=== PATIENT | female | born 1970 | race Caucasian/White ===

== ENCOUNTER → 2018-04-28 15:33 | Outpatient (CLI) | payer OTHER, SELFPAY ==
[2018-04-28 10:03] VITALS: BMI 25.7
== END ==
PROVIDERS: Family Provider Internal Medicine; PCP Internal Medicine; Referring Provider Physician Assistant; Visit Provider Physician Assistant
DX: J02.9 Acute pharyngitis, unspecified (principal)
CPT/HCPCS: 87081

== ENCOUNTER → 2018-08-23 | Outpatient (CLI) | payer OTHER, SELFPAY ==
[2018-04-28 10:03] VITALS: BMI 25.7
--- NOTE | 2018-08-23 12:59 | RAD_ITS ---
STUDY: X-RAY - LUMBAR SPINE REASON FOR EXAM: Female, 48 years old. Bilateral leg pain, worsening, 3 weeks. Lower back pain TECHNIQUE: 5 view(s) of the lumbar spine were obtained. COMPARISON: None FINDINGS: Slight lumbar scoliosis. Normal lumbar lordosis. Normal vertebral body height and alignment. No significant disc or endplate degenerative changes. Mild facet arthropathy L3-L4, L4-L5. No acute intra-abdominal process is evident, in limited evaluation. RAD/L/S Spine Min 4 Views IMPRESSION: Minimal scoliosis, no significant lumbar degenerative disc disease, mild low lumbar facet arthropathy. If the patient has convincing features of lumbar radiculopathy in the lower extremities, and MRI lumbar spine may be appropriate. Electronically Signed: Gavin Sanchez MD at 13:39 EDT Tel , Service support ,
== END | disposition home or self-care (01) ==
LOC: LAB 12:39
PROVIDERS: Family Provider Internal Medicine; PCP Internal Medicine; Referring Provider Internal Medicine; Visit Provider Internal Medicine
DX: R63.5 Abnormal weight gain (principal); M54.5 Low back pain; M54.10 Radiculopathy, site unspecified
CPT/HCPCS: 36415; 72110; 84443

== ENCOUNTER → 2018-11-22 | Outpatient (CLI) | payer OTHER, SELFPAY ==
[2018-11-09 08:42] VITALS: BMI 25.7
--- NOTE | 2018-11-22 09:06 | US_ITS ---
STUDY: ULTRASOUND BREAST - RIGHT REASON FOR EXAM: Female, 48 years old. History of right breast pain and possible infection in the periareolar region. TECHNIQUE: Axial and longitudinal images of the RIGHT breast were performed with a high resolution ultrasound transducer. COMPARISON: Comparison is made with prior mammogram done earlier today. FINDINGS: RIGHT Breast: There is evidence of a retroareolar ductal dilatation. 2 cysts are seen in the retroareolar region. The largest measures 6 mm x 9 mm x 5 mm. US/Breast Limited Unilateral IMPRESSION: Dilated retroareolar ducts. 2. Subcentimeters cysts are seen as well. ASSESSMENT CATEGORY: BIRADS Category 2: Benign. A letter regarding these results will be sent to the patient by the facility within 30 days. Electronically Signed: Walker Mar, at 11:26 EDT , Service support ,
--- NOTE | 2018-11-22 09:06 | BI_ITS ---
MAMMOGRAPHY - BILATERAL DIAGNOSTIC REASON FOR EXAM: Female, 48 years old. Recent infection and tenderness involving the right periareolar region. The patient is presently in antibiotics. PERTINENT HISTORY: Non-contributory. TECHNIQUE: Digital bilateral breast cindy (3D mammographic acquisition) in the CC and MLO projections. 2-D mediolateral oblique (MLO) and craniocaudad (CC) views of both breasts were obtained. CAD: Full Field Digital Mammography with Computer Added Detection was performed. COMPARISON: Comparison is made with prior examination dated May 27, 2011. FINDINGS: Breast Composition: The breasts are heterogeneously dense, which may obscure small masses. There are no dominant masses or suspicious calcifications. Small bilateral axillary lymph nodes. No other significant abnormalities are identified. There has been no significant change since the prior study. BI/DIAG MAMM W/CAD, BILAT IMPRESSION: Stable bilateral diagnostic mammogram. With the patient's history of inflammatory involvement of the right alveolar region, ultrasound is recommended. ASSESSMENT CATEGORY: BIRADS Category 0: Incomplete. Need additional imaging evaluation. A letter regarding these results will be sent to the patient by the facility within 30 days. Approximately 10% of breast cancers are not detected by mammography. A normal mammogram should not delay biopsy of a clinically suspicious abnormality. Electronically Signed: Walker aMr, at 10:45 EDT , Service support ,
== END | disposition home or self-care (01) ==
LOC: OPBI 09:05
PROVIDERS: Family Provider Internal Medicine; PCP Internal Medicine; Referring Provider Nurse Practitioner Women's Health; Visit Provider Nurse Practitioner Women's Health
DX: N64.4 Mastodynia (principal)
CPT/HCPCS: 76642; 77062; 77066; G0279

== ENCOUNTER → 2019-05-04 15:05 | Outpatient (CLI) | payer OTHER, SELFPAY ==
--- NOTE | 2019-05-04 | EMB_PTH ---
PATIENT: ANNA MARIE MILLER LOC: [facility] U#:[id number] AGE/SX: 54/F ROOM: RE05/04/[address]: Dr. Anita Polanco MD : [id number] BED: DIS: SPEC #: [id number] RECD: 05/04/19 15:45 STATUS: RUFUS MARIA E #: [id number] DAVID: 05/04/19 00:[address]: Anita Polanco DEPT: SURGICAL PATHOLOGY RECD BY: Hilario Be ENTERED: 05/05/19 07:44 SP TYPE: ENDOM BX/C ABBY DR: Dr. Fabi Eric MD Tissues: Endometrium, NOS Procedures: Surgery Specimen Level IV HEADER OPERATION: Endometrial biopsy PRE-OP DIAGNOSIS: Abnormal uterine bleeding TISSUE SUBMITTED: Endometrial biopsy MICROSCOPIC DIAGNOSIS Endometrium, biopsy: Proliferative endometrium with focal glandular breakdown. Rare stromal hyalinized nodule. No evidence of hyperplasia. AM:gin 05/08/19 MICROSCOPIC DESCRIPTION Slides are reviewed. GROSS DESCRIPTION Received is one container labeled with the patient's name and not further designated. The specimen consists of multiple minute fragments of light hercules soft tissue that in aggregate measure 2 x 0.3 x <0.1 cm. The specimen is totally submitted in one cassette. / AM:gin 05/05/19 TC:5 CPT: 76526
[2019-05-04 08:29] VITALS: BMI 25.7
[2019-05-10 17:46] LABS: HPV APTIMA, High Risk Negative (Negative)
== END ==
PROVIDERS: PCP Internal Medicine; Referring Provider Obstetrics & Gynecology; Visit Provider Obstetrics & Gynecology
DX: Z12.4 Encounter for screening for malignant neoplasm of cervix (principal)
CPT/HCPCS: 87624; 88175; 88305; G0145

== ENCOUNTER → 2019-05-09 07:49 | Outpatient (CLI) | payer OTHER, SELFPAY ==
[2019-05-04 08:29] VITALS: BMI 25.7
--- NOTE | 2019-05-09 07:49 | US_ITS ---
STUDY: ULTRASOUND OF THE FEMALE PELVIS - COMPLETE REASON FOR EXAM: Female, 49 years old. AUB LMP: April 28, 2019. TECHNIQUE: Transabdominal and Transvaginal TECHNICAL QUALITY: Adequate. COMPARISON: Comparison is made with prior study dated March 08, 2015. FINDINGS: The uterus is retroverted and is in a midline position. The uterus measures 10.6 cm x 7 cm x 5.1 cm. Normal uterine cervix. The endometrium measures 9.0 mm in thickness, and is hyperechoic. There is no demonstrated endometrial mass. The myometrium is heterogeneous. 2 distinct fibroids are seen. The larger measures 3 cm x 3.5 cm x 2.3 cm. I.U.D. - The patient does not have an I.U.D. The right ovary is visualized. The right ovary measures 2.5 cm x 2.2 cm x 1.8 cm. There is no right ovarian cyst or ovarian mass. There is no visualized right adnexal mass or complex lesion. There is normal arterial and normal venous vascularity. The left ovary is visualized. The left ovary measures 2.3 cm x 1.7 cm x 1.6 cm. There is no left ovarian cyst or ovarian mass. There is no visualized left adnexal mass or complex lesion. There is normal arterial and normal venous vascularity. There is no fluid in the cul-de-sac. US/Pelvic (Non ) IMPRESSION: Fibroid uterus. Electronically Signed: Walker Mar, at 15:38 EDT , Service support ,
--- NOTE | 2019-05-09 08:28 | US_ITS ---
STUDY: ULTRASOUND OF THE FEMALE PELVIS - COMPLETE REASON FOR EXAM: Female, 49 years old. AUB LMP: April 28, 2019. TECHNIQUE: Transabdominal and Transvaginal TECHNICAL QUALITY: Adequate. COMPARISON: Comparison is made with prior study dated March 08, 2015. FINDINGS: The uterus is retroverted and is in a midline position. The uterus measures 10.6 cm x 7 cm x 5.1 cm. Normal uterine cervix. The endometrium measures 9.0 mm in thickness, and is hyperechoic. There is no demonstrated endometrial mass. The myometrium is heterogeneous. 2 distinct fibroids are seen. The larger measures 3 cm x 3.5 cm x 2.3 cm. I.U.D. - The patient does not have an I.U.D. The right ovary is visualized. The right ovary measures 2.5 cm x 2.2 cm x 1.8 cm. There is no right ovarian cyst or ovarian mass. There is no visualized right adnexal mass or complex lesion. There is normal arterial and normal venous vascularity. The left ovary is visualized. The left ovary measures 2.3 cm x 1.7 cm x 1.6 cm. There is no left ovarian cyst or ovarian mass. There is no visualized left adnexal mass or complex lesion. There is normal arterial and normal venous vascularity. There is no fluid in the cul-de-sac. US/Transvaginal Non- IMPRESSION: Fibroid uterus. Electronically Signed: Walker Mar, at 15:38 EDT , Service support ,
== END ==
PROVIDERS: PCP Internal Medicine; Referring Provider Obstetrics & Gynecology; Visit Provider Obstetrics & Gynecology
DX: N93.9 Abnormal uterine and vaginal bleeding, unspecified (principal)
CPT/HCPCS: 76830; 76856

== ENCOUNTER → 2020-07-05 09:12 | Outpatient (CLI) | payer OTHER, SELFPAY ==
--- NOTE | 2020-07-05 09:16 | RAD_ITS ---
STUDY: X-RAY - CERVICAL SPINE REASON FOR EXAM: Female, 50 years old. CERVICALGIA TECHNIQUE: 3 view(s) of the cervical spine were obtained. COMPARISON: Comparison is made with prior study of 11/10/2011. FINDINGS: Normal anterior atlantoaxial articulation. Normal odontoid process. There is straightening of the normal cervical lordosis. Normal vertebral bodies and endplates. Minimal degree of disc space narrowing at the C5-C6 level. Normal visualized intervertebral neuroforamina. The soft tissue structures are unremarkable. RAD/Cerv Spine 2 or 3 Views IMPRESSION: Minimal degree of disc space narrowing at the C5-C6 level. Electronically Signed: Walker Mar MD at 15:16 EDT , Service support ,
== END ==
PROVIDERS: PCP Internal Medicine; Referring Provider Internal Medicine; Visit Provider Internal Medicine
DX: M54.2 Cervicalgia (principal)
CPT/HCPCS: 72040

== ENCOUNTER → 2020-08-05 10:49 | Outpatient (CLI) | payer OTHER, SELFPAY ==
--- NOTE | 2020-08-05 11:07 | MRI_ITS ---
HISTORY: Pain and numbness to bilateral arms and hands, greater on the right side. Radiculopathy. TECHNIQUE: Routine MRI of the cervical spine was performed. # of images incl. paperwork: 246. IV Contrast dosage and agent: None. COMPARISON: XR 07/05/2020. FINDINGS: VERTEBRAE: Vertebral body heights maintained. No significant bone marrow signal abnormality. Mild degenerative endplate changes at C5-6. ALIGNMENT: Straightening of the cervical lordosis without anterior or posterior subluxation. CORD: Morphology and signal within normal limits. SOFT TISSUES: No prevertebral fluid collection. INTERVERTEBRAL DISCS: Mild posterior disc protrusion at C5-6 abutting the ventral cord and resulting in mild central canal stenosis. No significant posterior disc protrusion, central canal stenosis, or foraminal narrowing at the other levels. MRI/Spine Cervical (Routine) IMPRESSION: Posterior disc herniation at C5-6 resulting in mild spinal canal stenosis. at 1417 Reported and signed by: Clementina Stone MD Electronically Signed: Clementina Stone MD at 14:16 EDT Tel , Service support ,
== END ==
PROVIDERS: PCP Internal Medicine; Referring Provider Internal Medicine; Visit Provider Internal Medicine
DX: R20.0 Anesthesia of skin (principal); M54.2 Cervicalgia
CPT/HCPCS: 72141

== ENCOUNTER 2020-08-08 10:30 | Outpatient (RCR) | payer OTHER, SELFPAY ==
--- NOTE | 2020-06-05 11:10 | HP.PTEVAL_ITS ---
Patient's Visit Information ANNA MARIE MILLER is a 50 year old F referred to Physical Therapy by OLIVIA Pedraza with a diagnosis of NECK STRAIN. Date of Evaluation: 06/05/20 Physical Therapist: Mckayla Forrest PT, Cert MDT - Visit Plan Frequency: 2-3x /Week Duration: 4-6 Weeks Plan: POSTURE CORRECTION/STRENGTHENING, INSTRUCTION IN APPROPRIATE BODY MECHANICS AND ACTIVITY MODIFICATIONS. MICHELLE UE ROM, STRETCHING AND STRENGTHENING. HEP INSTRUCTION. 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 Disability: NO. Present symptoms: RIGHT NECK PAIN, RIGHT ARM, FOREARM, HAND AND DIGITS 1,3 AND 4. RIGHT UE PAIN, NUMBNESS AND TINGLING. Present since: ABOUT 3 WEEKS AGO. Pain Scale: Worst - 6/10Least - 0/10. Currently: 06/01. Commenced as a result of: JUMPED OUT OF BED. Symptoms at onset: RIGHT NECK PAIN. Worse: SLEEPING, RESTING ON IT, LIFTING PEOPLE, MOVING PEOPLE, TURNING NECK. DRIVING. Better: MOVING IT, BEING ACTIVE, YOGO, HEAT. Disturbed sleep: YES. Previous history/Previous treatment: UNREMARKABLE. This episode: PT ORDER AND STATES CONY BASSETT PT ALSO RECOMMENDED DR. YORK FOR CHIROPRACTIC. HAS NOT BEEN TO CHIROPRACTOR YET. Dizziness: NO. Tinnitis: TWO WKS AGO YES - DX'D WITH EAR INFECTION. Nausea: NO. Shortness of Breath: NO. Difficulty Swollowing: NO. Gait: NORMAL. Accidents: NO. Unexplained weight loss: NO. Imaging: NONE. PMH/Recent major surgery: R LB PAIN. LEFT THIGH N&T... MORE RECENTLY R THIGH HAS N&T TOO. UNDER CARE OF PCP FOR LUMBAR PROBLEMS. PATIENT REPORTS SHE HURT HER BACK 27 YEARS AGO. - Objective Sitting Posture/Standing Posture: FORWARD HEAD. RS'S. Active Correction of posture: BETTER. Other Observations: INDEP GAIT AND TRANSFERS. Motor deficit: R SIGNAL WORKER HELPER STRENGTH 55 LBS, L 45 LBS. MICHELLE UE'S 5/5 WITH MMT'ING EXCEPT SHLD GIRDLES 4/5. Sensory deficit: MICHELLE UE LIGHT TOUCH SENSATION INTACT AND SYMMETRICAL. ROM deficit: MICHELLE UE'S WFL. Reflexes: UNABLE TO ELICIT B UE DTR'S. Dural Signs: POSITIVE MICHELLE UE'S R > L. Cervical Mvmt Loss: Flex: MIN. Pro: NIL. Ext: MIN. Ret: MOD. RSB: MOD. LSB: MOD. R Rot: MOD. L Rot: MOD. Postural strength: POOR. Palpation: TENDERNESS WITH LIGHT PALPATION OF THE UPPER AND LOWER CERVICAL REGIONS, MICHELLE UT'S AND LIGHT PALPATION OF THE UPPER CERVICAL SPINE INCREASES PATIENTS C/O R UE NUMBNESS. CERVCIAL DISTRACTION - NT. TREATMENT: NEUROMUSCULAR REEDUCATION - RETRAINING OF MVMT AND POSTURE FOR SITTING, LYING AND STANDING ACTIVITIES. - Goals Goal 1:: DECREASE C/O RIGHT NECK AND UE SX'S. Goal Time Frame: 4-6 Weeks Goal 2:: IMPROVE LIFTING, READING, SLEEP, WORK, DRIVING AND RECREATIONAL FUNCTION. Goal Time Frame: 4-6 Weeks Goal 3:: INSTRUCT IN PROPHYLAXIS Goal Time Frame: 4-6 Weeks - Anticipated Interventions Patient/Client Instruction: Educate patient on: Condition, Plan of Care, Risk Factors For the Purpose of:: To improve self management Therapeutic Exercise to Include: Strength training, Body mechanics, Postural training, Neuromotor development, Scapular Strength/Stabilization For the Purpose of:: To decrease pain, To improve muscle performance and motor function, To increase tolerance to activity/condition/position, To improve ability of physical actions for home/community/work/leisure TENS: Yes IF ES: Yes Cryotherapy (ice pack, ice massage): Yes Thermo therapy (hot pack): Yes Ultrasound (thermal/non thermal): Yes For the Purpose of:: To decrease pain, To improve nutrient delivery to tissue Thank you for the opportunity to evaluate your patient. For Medicare and Medicare HMO plans, please review the plan of care and approve it. It will need to be FAXED BACK to us at [phone] for Medicare purposes. For Medicare only, by signing this I certify the plan of care. Please let me know if there are questions or concerns regarding this plan of care. Physician Signature: Date:
--- NOTE | 2020-08-08 11:38 | HP.PTDCSUM_ITS ---
It has been my pleasure to treat ANNA MARIE MILLER referred by OLIVIA Pedraza, with the diagnosis of NECK STRAIN for a total of 9 visit(s). Discharge Date: 08/08/20 Please see the following information for a summary of their discharge status. Subjective: ALEXUS'T WITH DR. FRAZIER TODAY AT 5 TO GO OVER MRI RESULTS. MRI 2 DAYS AGO. PATIENT REPORTS SHE STOPPED PT BECAUSE SHE FELT LIKE SHE WAS WASTING OUT TIME. STATES SHE IS STILL HAVING A LOT OF PAIN AND RIGHT NOW IT IS THROBBING AND FEELS LIKE SOMEONE IS PULLING ON HER ARM. STILL NO NECK PAIN. PATIENT R EPORTS SHE IS L HANDED BUT SHE DOES A LOT WITH HER RIGHT ARM. SHE REPORTS SHE IS STRUGGLING TO EVEN DO DISHES OR PUT HER MAKE UP ON. SHE REPORTS SHE CAN NOT SHOOT A BOW, SHOOT A GUN OR EVEN FISH. JUST SWINGING HER ARMS WALKING TRIGGERS INCREASED PAIN. JUST DRIVING TO PT IS PROBLEMATIC. NERVE CONDUCTION TEST STILL PENDING IN AUGUST. RIGHT UE Pain Intensity (Out of 10): 4 L THUMB Pain Intensity (Out of 10): 1 L UE Pain Intensity (Out of 10): 0 % Improvement: 0 Objective/Function: PATIENT WAS SEEN TODAY FOR RE-ASSESSMENT OF PROGRESS TOWARD THE SET PT GOALS AND THE NEED FOR FURTHER PHYSICAL THERAPY VS READINESS FOR DISCHARGE. PATIENT IS NOT IMPROVING. 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 UPON EXAM TODAY: Motor deficit: R STUFFING MACHINE OPERATOR STRENGTH 45 LBS, L 45 LBS. MICHELLE UE'S 5/5 WITH MMT'ING EXCEPT SHLD GIRDLES 4/5. Sensory deficit: MICHELLE UE LIGHT TOUCH SENSATION INTACT AND SYMMETRICAL. ROM deficit: MICHELLE UE'S WFL. Reflexes: UNABLE TO ELICIT B UE DTR'S. Dural Signs: POSITIVE MICHELLE UE'S R > L. Cervical Mvmt Loss: Flex: MIN. Pro: NIL. Ext: MOD. Ret: SHAQUILLE. RSB: MOD. LSB: MOD. R Rot: MOD. L Rot: MOD. RIGHT UE SX'S ARE EASILY PROVOKED WITH CERVCIAL ROM TESTING ALL PLANES EITHER DURING MVMT OR SHORTLY AFTER. Postural strength: POOR. Palpation: TENDERNESS WITH LIGHT PALPATION OF THE [id number] REGIONS TODAY. INCREASED MUSCLE TENSION MICHELLE CERVICAL MUSCULATURE. Goal 1:: DECREASE C/O RIGHT NECK AND UE SX'S. Goal Progress: Not Progressing Goal 2:: IMPROVE LIFTING, READING, SLEEP, WORK, DRIVING AND RECREATIONAL FUNCTION. Goal Progress: Not Progressing Goal 3:: INSTRUCT IN PROPHYLAXIS Goal Progress: Not Progressing Plan: D/C DUE TO LACK OF PROGRESS. RECOMMEND PHYSICIAN RE-ASSESSMENT. PATIENT AGREEABLE. If there are questions or concerns regarding this patient's physical therapy, please feel free to call me at [phone]. Thank you for the referral of this patient. Sincerely, Mckayla Forrest, PT, Cert MDT
== END 2020-08-08 19:00 | disposition home or self-care (01) ==
LOC: PT 10:30
PROVIDERS: PCP Internal Medicine; Referring Provider Physician Assistant Surgical; Visit Provider Physician Assistant Surgical
DX: S16.1XXD Strain of muscle, fascia and tendon at neck level, subsequent encounter (principal)
CPT/HCPCS: 97014; 97035; 97110; 97112; 97162; 97164; 97530; G0283

== ENCOUNTER → 2020-09-05 09:34 | Outpatient (CLI) | payer OTHER, SELFPAY | PROVIDERS: PCP Internal Medicine; Referring Provider Orthopaedic Surgery; Visit Provider Nurse Practitioner Acute Care | DX: Z11.59 Encounter for screening for other viral diseases (principal) | CPT/HCPCS: 87426; C9803 ==

== ENCOUNTER 2020-10-16 12:30 | Outpatient (RCR) | payer OTHER, SELFPAY ==
--- NOTE | 2020-10-03 13:45 | HP.PTEVAL_ITS ---
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 Date of Evaluation: 10/03/20 Physical Therapist: Mckayla Forrest, PT, Cert MDT - Visit Plan Frequency: 2-3x /Week Duration: 4-6 Weeks Plan: 15 LB LIFTING LIMIT. AVOID MICHELLE UE EXERCISE >90 DEG AT THE SAME TIME. POSTURE CORRECTION/STRENGTHENING, INSTRUCTION IN APPROPRIATE BODY MECHANICS AND ACTIVITY MODIFICATIONS. ADVANCE ROM TOLERATED BUT BEGIN SLOWLY. MICHELLE UE ROM, STRETCHING AND STRENGTHENING. HEP INSTRUCTION. 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 TENTATIVE RTW DATE OF 10/24/20. HAS BEEN OFF WORK SINCE AUGUST 11 2020. Present symptoms: NECK STIFFNESS. A LITTLE BIT OF THROAT PAIN SWOLLOWING. RIGHT ELBOW PAIN WITH WALKING - INTERMITTENT. GOES AWAY QUICKLY WITH REST. INTERMITTENT MICHELLE FINGER TIP NUMBNESS. Present since: APR 10 2020. Pain Scale: Worst - 5/10 Least - 0/10. Currently: 0/10. Commenced as a result of: NO APPARENT REASON - JUMPED OUT OF BED. Symptoms at onset: NECK PAIN. Worse: WALKING INCREASES R ELBOW PAIN. GOING WITHOUT COLLAR FOR TOO LONG. Better: NECK BRACE. Disturbed sleep: YES. Previous history/Previous treatment: PHYSICAL THERAPY. NO LENORE'S. ALSO TRIED ORAL STEROIDS PRIOR TO SURGERY. Dizziness: NO. Tinnitis: NO. Nausea: OCCASSIONALLY. Shortness of Breath: NO. Difficulty Swollowing: A LITTLE BIT BUT GETTING BETTER. Gait: NORMAL. Accidents: NO. Unexplained weight loss: NO. Imaging: X-RAY POST SURGERY LOOKS GOOD PER PATIENT REPORT. PMH/Recent major surgery: UNREMARKABLE. NECK BRACE - WEANING OUT OF IT AND WILL WEAR IT ABOUT 4 HOURS TODAY. RESTRICTIONS - 15 LB LIFTING LIMIT. - Objective Sitting Posture/Standing Posture: FH. SH'S. Other Observations: INDEP GAIT AND TRANSFERS. Motor deficit: MICHELLE UE'S GROSSLY 5/5 WITH MMT'IING EXCEPT RIGHT SHLD 4-/5, LEFT 4/5. PATIENT IS LEFT HAND DOMINANT WITH A R STOCK SUPERVISOR STRENGTH OF 45 LBS AND LEFT 52 LBS. Sensory deficit: MICHELLE UE LIGHT TOUCH SENSATION GROSSLY INTACT AND SYMMETRICAL. ROM deficit: MICHELLE UE ROM WFL. Reflexes: MICHELLE UE DTR'S 2/3. Cervical Mvmt Loss: Flex: NIL. Pro: NIL. Ext: MOD. Ret: SHAQUILLE. RSB: MOD. LSB: MOD. R Rot: MIN. L Rot: MIN. Postural strength: POOR. Palpation: INCISION LOOKS GOOD WITHOUT ANY SIGNS OF INFECTION. TREATMENT: NEUROMUSCULAR REEDUCATION - RETRAINING OF MVMT AND POSTURE FOR SITTING, LYING AND STANDING ACTIVITIES. INITIATED HEP WITH CERVICAL ISO'S ALL PLANES X 5 REPS AND 5 SEC EA. OTB MR'S. CONTINUE TO WEAN OUT OF BRACE TOLERATED. CONTINUE WALKING PROGRAM. - Balance/Special Test Scores Oswestry Neck Score: 14 - Goals Goal 1:: DECREASE C/O NECK AND RIGHT UE SX'S. Goal Time Frame: 4-6 Weeks Goal 2:: IMPROVE LIFTING, READING, WORK, DRIVING AND RECREATIONAL FUNCTION. Goal Time Frame: 4-6 Weeks Goal 3:: INSTRUCT IN PROPHYLAXIS Goal Time Frame: 4-6 Weeks - Anticipated Interventions Patient/Client Instruction: Educate patient on: Condition, Plan of Care, Risk Factors For the Purpose of:: To improve self management Therapeutic Exercise to Include: Strength training, Endurance training, Body mechanics, Postural training, Flexibilty training, Neuromotor development, Active ROM, Scapular Strength/Stabilization For the Purpose of:: To decrease pain, To increase ROM, To improve muscle performance and motor function, To increase tolerance to activity/condition/position, To improve ability of physical actions for home/community/work/leisure Thank you for the opportunity to evaluate your patient. For Medicare and Medicare HMO plans, please review the plan of care and approve it. It will need to be FAXED BACK to us at [phone] for Medicare purposes. For Medicare only, by signing this I certify the plan of care. Please let me know if there are questions or concerns regarding this plan of care. Physician Signature: Date:
--- NOTE | 2020-12-31 13:07 | HP.PT.NRP ---
ANNA MARIE MILLER was seen in my office for initial evaluation on 10/03/20. The following Plan of Care was established for this patient: Initial Frequency: 2-3x /Week Initial Duration: 4-6 Weeks Patient/Client Instruction: Educate patient on: Condition, Plan of Care, Risk Factors For the Purpose of:: To improve self management Therapeutic Exercise to Include: Strength training, Endurance training, Body mechanics, Postural training, Flexibilty training, Neuromotor development, Active ROM, Scapular Strength/Stabilization For the Purpose of:: To decrease pain, To increase ROM, To improve muscle performance and motor function, To increase tolerance to activity/condition/position, To improve ability of physical actions for home/community/work/leisure This patient was last seen in our office 10/16/20. Pertinent comments regarding their Physical therapy will appear below: This patient has not returned to Physical Therapy and is appropriate to return to MD for further follow-up as needed. At this point I will be discontinuing this patient from physical therapy. I would be happy to see this patient again in the future if found appropriate by the physician. Thank you! Mckayla Forrest, PT, Cert MDT Balance/Gait/Functional tests - Balance/Special Test Scores Oswestry Neck Score: 14
== END 2020-10-16 19:00 | disposition home or self-care (01) ==
LOC: PT 12:30
PROVIDERS: PCP Internal Medicine; Referring Provider Nurse Practitioner Acute Care; Visit Provider Nurse Practitioner Acute Care
DX: Z47.89 Encounter for other orthopedic aftercare (principal)
CPT/HCPCS: 97110; 97112; 97161; 97530

== ENCOUNTER → 2020-11-01 13:13 | Outpatient (CLI) | payer OTHER, SELFPAY ==
[2020-11-01 14:24] LABS: Thyroid Stim Hormone (TSH) 0.93 uIU/mL (0.358-3.74)
== END ==
PROVIDERS: PCP Internal Medicine; Referring Provider Nurse Practitioner Women's Health; Visit Provider Nurse Practitioner Women's Health
DX: Z13.29 Encounter for screening for other suspected endocrine disorder (principal)
CPT/HCPCS: 36415; 84443

== ENCOUNTER → 2020-12-03 10:00 | Outpatient (CLI) | payer OTHER, SELFPAY ==
--- NOTE | 2020-12-03 10:01 | US_ITS ---
STUDY: ULTRASOUND TRANSVAGINAL CLINICAL: Female, 50 years old. AUB TECHNIQUE: Transvaginal COMPARISON: None. FINDINGS: Normal uterine size measuring 9.7 x 7.9 x 5.3 cm in maximal craniocaudal dimension. There is a 3 mm uterine calcification. Several uterine fibroids are noted measuring 1.3 cm up to the largest measuring 3.9 x 4.2 x 3.2 cm.. Normal endometrial thickness measuring 5.7 mm. There are no endometrial masses, and there is no fluid in the endometrial cavity. Normal uterine cervix. Normal right ovary, measuring 2.7 x 1.9 x 1.0 cm. There is normal vascularity. Nonvisualization of the left ovary. There is no free fluid in the pelvis. US/Pelvic (Non ) IMPRESSION: Multiple uterine fibroids. Electronically Signed: Blake Angulo DO at 16:24 EDT Tel [phone], Service support ,
--- NOTE | 2020-12-03 10:01 | US_ITS ---
STUDY: ULTRASOUND TRANSVAGINAL CLINICAL: Female, 50 years old. AUB TECHNIQUE: Transvaginal COMPARISON: None. FINDINGS: Normal uterine size measuring 9.7 x 7.9 x 5.3 cm in maximal craniocaudal dimension. There is a 3 mm uterine calcification. Several uterine fibroids are noted measuring 1.3 cm up to the largest measuring 3.9 x 4.2 x 3.2 cm.. Normal endometrial thickness measuring 5.7 mm. There are no endometrial masses, and there is no fluid in the endometrial cavity. Normal uterine cervix. Normal right ovary, measuring 2.7 x 1.9 x 1.0 cm. There is normal vascularity. Nonvisualization of the left ovary. There is no free fluid in the pelvis. US/Transvaginal Non- IMPRESSION: Multiple uterine fibroids. Electronically Signed: Blake Angulo DO at 16:24 EDT Tel [phone], Service support ,
== END ==
PROVIDERS: PCP Internal Medicine; Referring Provider Obstetrics & Gynecology; Visit Provider Obstetrics & Gynecology
DX: N93.9 Abnormal uterine and vaginal bleeding, unspecified (principal)
CPT/HCPCS: 76830; 76856

== ENCOUNTER 2021-03-28 05:53 | Day surgery (SDC) | payer OTHER, SELFPAY ==
--- NOTE | 2021-03-24 10:26 | EKG12_ITS ---
Test Reason : TVH, BS Blood Pressure : / mmHG Vent. Rate : 055 BPM Atrial Rate : 055 BPM P-R Int : 158 ms QRS Dur : 074 ms QT Int : 414 ms P-R-T Axes : 052 045 054 degrees QTc Int : 396 ms Sinus bradycardia Low voltage QRS Borderline ECG Confirmed by ABE MARTINEZ, DENTON ([id number]), art editor JAYLA BRADLEY ([id number]) on 03/25/2021 8:33:03 AM Referred By: Anita Polanco Confirmed By:DENTON FISH MD
[2021-03-24 11:41] LABS: Absolute Lymphocyte Count 1.39 X10^3/uL (0.83-4.51); Absolute Neutrophil Count 4.7 X10^3/uL (2.0-7.7); Basophil# 0.05 X10^3/uL; Basophil% 0.8 % (0-1); Eosinophil# 0.06 X10^3/uL; Eosinophils% 0.9 % (0-5); Hematocrit 45.6 % (37-47); Hemoglobin 14.7 g/dL (12.0-15.0); Lymphocyte # 1.39 X10^3/ul (0.83-4.51); Lymphocyte % 21.2 % (19-41); Mean Corp Hgb Conc 32.2 g/dL (32-36); Mean Corpuscular Hgb 28.5 pg (27.0-32.0); Mean Corpuscular Volume 88.4 fL (81-99); Mean Platelet Vol. 11.7 fl (6.2-12.0); Monocyte# 0.32 X10^3/uL; Monocyte% 4.9 % (0-10); NRBC Flagged by Analyzer 0 % (0-5); Neutrophil # 4.72 X10^3/uL (2.7-7.7); Neutrophil % 71.7 % (47-70); Platelet Count 224 K/mm3 (150-450); RBC Distribution Width CV 12.2 % (11.6-14.6); RBC Distribution Width SD 39.7 fl (35.1-43.9); Red Blood Count 5.16 M/mm3 (4.2-5.4); White Blood Count 6.6 K/mm3 (4.4-11.0)
[2021-03-24 12:14] LABS: Magnesium 2.4 mg/dL (1.6-2.6)
[2021-03-28] VITALS (15 sets, daily range): BP systolic 104–144; BP diastolic 62–97; PULSE 62–95; RESP 10–18; TEMP 36.3–37.3; O2SAT 96–100; BMI 26.9
[2021-03-28 06:21] LABS: Bedside Glucose 98 mg/dL (70-110)
[2021-03-28 06:34] LABS: Internal QC Validated? YES +Cl - CLEAR BKGD; Pregnancy, Urine Negative Negative
[2021-03-28] MEDS: Lactated Ringers 1,000 ML 40 ML IV (06:44)
[2021-03-28] MEDS: Acetaminophen 500 MG Tablet 1000 MG PO (06:49)
[2021-03-28] MEDS: Celecoxib 200 MG Capsule 400 MG PO (06:50)
[2021-03-28] MEDS: dexAMETHasone 10 MG/ML Vial 8 MG IV (06:50)
[2021-03-28] MEDS: Scopolamine 1mg/72hr Patch 1 PATCH TD (06:50)
[2021-03-28] MEDS: Enoxaparin 40 MG/0.4 ML Syringe SC (06:50)
--- NOTE | 2021-03-28 07:12 | HP.PCM_ITS ---
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 Required: No Is patient in pain?: No Allergies amoxicillin [Amoxicillin] Allergy (Mild, Verified 11/20/20 11:15) Rash erythromycin base [Erythromycin Base] Allergy (Verified 11/20/20 11:15) Rash Latex, Natural Rubber Allergy (Verified 11/20/20 11:15) Rash Sulfa (Sulfonamide Antibiotics) Allergy (Verified 11/20/20 11:15) Unknown sulfamethoxazole [From Bactrim] Allergy (Verified 11/20/20 11:15) Other trimethoprim [From Bactrim] Allergy (Verified 11/20/20 11:15) Other hydromorphone [From Dilaudid] Adverse Reaction (Verified 11/20/20 11:15) Vomiting tetracycline Adverse Reaction (Verified 11/20/20 11:15) Nausea/Vom/Diarrhea gabapenton Adverse Reaction (Intermediate, Uncoded 11/20/20 11:15) rash narcotics Adverse Reaction (Uncoded 11/20/20 11:15) Nausea/Vom/Diarrhea Medications multivitamin 1 cap PO DAILY 12/08/18 [History Confirmed 02/09/20] ascorbic acid (vitamin C) 500 mg capsule mg PO 11/20/20 [History Confirmed 11/20/20] cholecalciferol (vitamin D3) 25 mcg (1,000 unit) capsule 25 mcg PO DAILY 11/20/20 [History Confirmed 11/20/20] norethindrone acetate 5 mg tablet 5 mg PO .COMPLEX #30 tab 11/20/20 [Rx Confirmed 11/20/20] ondansetron HCl 4 mg tablet 4 mg PO Q4H #60 tab 11/20/20 [Rx Confirmed 11/20/20] vitamin E mixed 400 unit capsule unit PO 11/20/20 [History Confirmed 11/20/20] zinc 50 mg tablet 50 mg PO DAILY 11/20/20 [History Confirmed 11/20/20] Post menopausal: No Patient : No : No PFSH Medical History (Updated 11/21/20 @ 03:[address] 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 Previous ultrasound showed small fibroids and adenomyosis and 10 cm uterus. She also has significant menopausal symptoms with hot flashes and night sweats. She was on a combination OCP continuously and then started having irregular breakthrough bleeding. She was able to stop the bleeding with Aygestin. She has had an 8 pound weight gain in the last few weeks since starting the medication and feels bloated but denies any hot flashes or night sweats. Female Reproductive History Menopausal Symptoms: No hot flashes, No night sweats, No difficulty concentrating and No change in libido Pregancy History 3 Elective abortions Hx Para 3 Spontaneous abortions Hx # Term Pregnancies 3 Ectopic pregnancies Hx # Pregnancies Multiple births # of living children 3 Past Pregnancies Del. Date Name GA/Weeks Outcome Route Bth Weight Infant Gen Labor Lgth Anesthesia Del Locatn Provider FOB Unknown Harjinder 1987 Unknown Griselda 1991 Unknown Vince 1992 ROS Const Constitutional: Denies fatigue, night sweats or weight loss ENT ENT: Reports system reviewed and no additional complaints, except as documented Cardio Card: Denies chest pain Resp Resp: Denies cough or dyspnea GI GI: Reports as per HPI; Denies constipation, nausea or vomiting : Reports as per HPI; Denies hot flashes, nipple discharge, vaginal discharge, vaginal dryness, vaginal odor or vaginal pruritus Musc Musc: Denies arthralgias, back pain or muscle weakness Skin Skin/Breast: Denies alopecia, change in hair, dry skin, breast mass, breast pain, breast skin changes or nipple discharge Neuro Neuro: Reports system reviewed and no additional complaints, except as documented Psych Psych: Reports system reviewed and no additional complaints, except as documented; Denies change in libido or difficulty concentrating Endo Endo: Denies cold intolerance, excessive sweating, heat intolerance or polydipsia Kian/Lymph Hematologic/Lymphatic: Denies easy bleeding, Denies easy bruising and Denies lymphadenopathy Exam Const General: cooperative, healthy appearing, comfortable, no acute distress and well developed Orientation: alert HENMT Head: normal to inspection and normocephalic Ears: hearing grossly normal bilaterally and external ears normal Nose: external nose normal and nares normal Face and sinus: normal facial exam Neck Neck: normal visual inspection and no lymphadenopathy Thyroid: thyroid normal Chest Chest palpation & inspection: normal inspection of the chest Resp Effort & Inspection: normal respiratory effort GI Inspection: normal to inspection and non-distended Musc Other: gross motor intact no deficits, full bilateral strength Skin General: no rashes or lesions noted Neuro General: patient alert, patient awake, moves all extremities and no focal motor deficits Motor: muscle tone normal throughout Extrem General: normal to inspection and no pedal edema Psych Appearance: grossly normal Mental Status: mental status grossly normal Affect: normal affect Speech and Movement: speech and movement normal Coding Level of Care Code Off vis,est,level 5 Diagnoses Abnormal uterine bleeding N93.9 Stress incontinence N39.3 Assessment and Plan Assessment and Plan (1) Abnormal uterine bleeding: Status: Acute Comment: plan TVHBS for fibroids, us ordered. aygestin until surgery in february. Ultrasound ordered to follow-up uterine size, consider LAVH if increased. Orders: Orders: Pelvic (Non ) 11/20/20 Transvaginal Non- 11/20/20 Plan - Dr. Anita Polanco MD: After discussing the patient's diagnosis and treatment plan options, patient wishes to proceed with surgical management. I have discussed with the patient the risks, benefits, and alternatives of the procedure which include but are not limited to risks of anesthesia, bleeding, infection, possible damage to bowel, bladder, or surrounding vasculature which could lead to additional surgery to evaluate any complications. Patient agrees to procedure and wishes to proceed. ACOG/uptodate references given for additional information regarding procedure. (2) Stress incontinence: Status: Acute Comment: urogyn consult for possible sling Orders: Referrals: Urogynecology Plan Details Other Medications: New: ondansetron HCl (Zofran) 4 mg PO Q4H 60 tabs 3RF Refilled: norethindrone acetate (Aygestin) 5 mg PO BID x 3 days and then once daily for remainder 30 tabs 0RF UPDATE- I have seen the patient and performed any clinically relevant updates to the history and physical exam. Anita Polanco MD
--- NOTE | 2021-03-28 07:30 | HYST_PTH ---
PATIENT: ANNA MARIE MILLER LOC: [facility] [place] U#:[id number] AGE/SX: 50/F ROOM: RE03/28/[address]: Dr. Anita Polanco MD : 1970 BED: DIS: 03/28/2021 SPEC #: [id number] RECD: 03/31/21 07:21 STATUS: RUFUS SANDERSON #: [id number] DAVID: 03/28/21 07:[address]: Anita Polanco DEPT: SURGICAL PATHOLOGY RECD BY: Marisol Gresham ENTERED: 03/31/21 08:03 SP TYPE: HYSTERECT OTHR DR: MD Dr. Fabi Stauffer MD Tissues: Uterus, NOS Procedures: Surgery Specimen Level V HEADER OPERATION: ERAS, vaginal hysterectomy. BS PRE-OP DIAGNOSIS: Abnormal uterine bleeding TISSUE SUBMITTED: Uterus, cervix, bilateral fallopian tubes MICROSCOPIC DIAGNOSIS Uterus, cervix, bilateral fallopian tubes, hysterectomy and bilateral salpingectomy: Cervix ? minimal chronic inflammation. Endometrium ? weakly proliferative endometrium. Myometrium ? diffuse adenomyosis. - Intramural leiomyomas. Bilateral fallopian tubes - no pathologic diagnosis. See comment. JACOB:gin 04/01/2021 COMMENT One of the fallopian tube consists of only fimbrial end. MICROSCOPIC DESCRIPTION Slides are reviewed. GROSS DESCRIPTION Received in fixative is one container labeled with the patient's name and designated uterus, cervix, bilateral fallopian tubes. The specimen consists of a hysterectomy specimen in multiple pieces consisting of pieces of uterus with cervix and detached nodular masses and detached pieces of tissue, possible fallopian tube segments. The uterus with cervix and detached nodular pieces weigh in aggregate 128 gm. The uterus with cervix in multiple pieces measures in aggregate 10 x 7 x 3 cm. The serosal surface appears unremarkable. The ectocervical mucosa is unremarkable. The endocervical canal measures 3 cm in length and the endocervical mucosa is hercules, glistening and unremarkable. The identifiable endometrial cavity is narrow and measures 4 cm in length and up to 0.5 cm in width. The endometrium is hercules, glistening without any mass lesion and measures <0.1 cm in thickness. Sections of the uterine wall reveal a nodular mass measuring 2 cm in greatest dimension. One of the detached pieces of the uterus is consistent with a nodular mass which measures 3.5 cm in greatest dimension. Sections of these masses reveal hercules whorled cut surfaces without areas of hemorrhage, necrosis or cystic degeneration. The uterine wall measures up to 3 cm in thickness. One of the detached pieces appear to be consists of fimbrial end of fallopian tube measuring 1.5 x 1 x 0.3 cm. The second fallopian tube measures 3.5 cm in length and 0.5 cm in diameter. The fimbrial end is identified. Sections reveal unremarkable cut surfaces. 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 The fallopian tubes are submitted in entirety. / JACOB:gin 03/31/2021 TC:5 CPT: 09774
--- NOTE | 2021-03-28 07:33 | PCM.OPRPT ---
Problems Associated Problem List Diagnoses (1) Abnormal uterine bleeding: Report of Operation Date of Procedure: 03/28/21 Pre-Operative Diagnosis: see A/P Post-Operative Diagnosis: same Surgery/Procedure Performed:: TVH BS Description of Surgical Findings:: enlarged fibroid uterus early breastfeeding care specialist: Jonah Hawley Type of Anesthesia: General Specimen's removed: uterus, tubes Drains: reid Estimated Blood Loss (mL): 100 Fluids Replaced: crystalloid Description of Procedure: Patient was taken to the operating room and was placed under general anesthesia was prepped and draped in normal sterile fashion in the dorsal lithotomy position. Preoperative antibiotics and SCDs and Reid catheter was placed inside the bladder. Weighted speculum was placed in the vagina and the anterior and posterior lip of the cervix was grasped with 2 Garima clamps and circumferentially injected with dilute vasopressin. A circumferential incision was made with a scalpel and the posterior cul-de-sac was entered into sharply and a longneck speculum was placed. The anterior cul-de-sac was also dissected down and entered into sharply and the uterosacral ligaments were clamped cut and suture ligated bilaterally followed by the cardinal ligaments which were Clamped cut and suture ligated bilaterally with 0 Monocryl. The uterus serially descended and progressive bites were taken bilaterally up to the level of the utero-ovarian ligament bilaterally which was clamped transected and double ligated with 0 Monocryl suture and 0 Vicryl free tie. some morcellation was performed due to the fibroid location. Bilateral fallopian tubes and ovaries were well visualized and noted be within normal limits and the bilateral fallopian tubes were transected across the base with a Harmony clamp and removed and sutured with 0 Vicryl suture. Excellent hemostasis was noted. The vagina was closed with [id number] 0 Vicryl pop offs including the posterior and anterior peritoneum in the reapproximation. Excellent hemostasis was noted. All instruments removed from the vagina clear urine was noted at the end of the procedure and patient was awoken and taken recovery in stable condition. Grafts/Implants Used: none Complications none Admit VTE Documentation VTE Present on Admission: No VTE Mechan Device Prophylaxis: SCD's VTE Pharm Prophylaxis ordered?: Yes Multi Select Codes Urinary/Genital Urinary/Genital CPT Codes: 03606 TVH+BS/O <250gr uterus
--- NOTE | 2021-03-28 07:35 | PCM.DC ---
Discharge Instructions Diet Discharge Diet: No restrictions Activity Discharge Activity: Return to Normal Activity, May Not Drive (while taking narcotic pain medications.) and May Shower May resume sexual activity in: 6-8 weeks Dressing / Incision Call your doctor if your incision/area has: Continuous Slow Oozing, Sudden Increased Bleeding, Increased Pain/ Swelling, Increased Redness and Foul Smelling Discharge Call your doctor if you observe: Fever of 101 or Higher, Inability to urinate, Inability to have a bowel movement and Using more than 1 pad per hour Follow Up Care Please Follow Up With: Anita Polanco MD Test Results: Test results from this visit will be discussed in further detail at your follow-up appointment, if applicable. Discharge Plan Admission Primary Reason for Your Visit: hysterectomy Attending Provider: Anita Polanco Primary Care Provider: Fabi Eric Consulting Providers: Fransico Acosta Discharge Orders/Prescriptions Prescriptions: New ketorolac 10 mg tablet 10 mg PO Q6H PRN (Reason: pain) 3 Days Qty: 12 RF: 0 Continued multivitamin capsule capsule 1 cap PO DAILY RF: 0 cholecalciferol (vitamin D3) 25 mcg (1,000 unit) capsule 25 mcg PO QHS RF: 0 vitamin E mixed 400 unit capsule 400 unit PO MOWEFR RF: 0 zinc 50 mg tablet 50 mg PO DAILY RF: 0 ascorbic acid (vitamin C) 500 mg capsule 500 mg PO QHS RF: 0 venlafaxine [Effexor XR] 37.5 mg capsule,extended release 24hr 37.5 mg PO QHS RF: 0 ondansetron HCl 4 mg tablet 4 mg PO PRN PRN (Reason: Nausea) RF: 0 Gemtesa 75 mg Tablet 75 mg PO QHS RF: 0 Discontinued medroxyprogesterone 5 mg tablet 5 mg PO .COMPLEX Qty: 45 RF: 3 norethindrone acetate [Aygestin] 5 mg tablet 5 mg PO .COMPLEX Qty: 30 RF: 0 Referrals / Follow Up: Fabi Eric MD [Primary Care Provider] - Disposition Disposition (needs filled in before D/C Order can be placed): Home, Self Care
[2021-03-28] MEDS: Lactated Ringers 1,000 ML 70 ML IV (07:40)
[2021-03-28] MEDS: Vasopressin 20 UNITS/ML Vial (07:56)
[2021-03-28] MEDS: Ondansetron 4 MG/2 ML Vial IV ×2 (09:20→12:21)
[2021-03-28] MEDS: Lactated Ringers 500 ML 999 ML IV (09:50)
[2021-03-28] MEDS: Ketorolac 30 MG/ML Syringe IV (10:45)
[2021-03-28 11:20] LABS: Bedside Glucose 103 mg/dL (70-110)
[2021-03-28] MEDS: HYDROmorphone Inj 0.2 MG/ML SYRINGE 1 MG IV (12:25)
[2021-03-28 12:52] LABS: Absolute Lymphocyte Count 0.63 X10^3/uL (0.83-4.51); Basophil# 0.03 X10^3/uL; Basophil% 0.3 % (0-1); Eosinophil# 0.01 X10^3/uL; Eosinophils% 0.1 % (0-5); Hematocrit 39.3 % (37-47); Hemoglobin 13.4 g/dL (12.0-15.0); Lymphocyte # 0.63 X10^3/ul (0.83-4.51); Lymphocyte % 5.9 % (19-41); Mean Corp Hgb Conc 34.1 g/dL (32-36); Mean Corpuscular Hgb 29.9 pg (27.0-32.0); Mean Corpuscular Volume 87.7 fL (81-99); Mean Platelet Vol. 11.3 fl (6.2-12.0); Monocyte# 0.07 X10^3/uL; Monocyte% 0.7 % (0-10); NRBC Flagged by Analyzer 0 % (0-5); Neutrophil # 9.95 X10^3/uL (2.7-7.7); Neutrophil % 92.6 % (47-70); Platelet Count 181 K/mm3 (150-450); RBC Distribution Width CV 11.9 % (11.6-14.6); RBC Distribution Width SD 38.5 fl (35.1-43.9); Red Blood Count 4.48 M/mm3 (4.2-5.4); White Blood Count 10.7 K/mm3 (4.4-11.0)
== END 2021-03-28 23:59 | disposition home or self-care (01) ==
LOC: SDC 05:53 → AC 05:55
PROVIDERS: Anesthesiology; PCP Internal Medicine; Referring Provider Obstetrics & Gynecology; Visit Provider Obstetrics & Gynecology
PROC: (CPT 58260; principal; 2021-03-28 07:10)
DX: N93.9 Abnormal uterine and vaginal bleeding, unspecified (principal); N80.0 Endometriosis of uterus; N95.1 Menopausal and female climacteric states; Z79.899 Other long term (current) drug therapy; M19.90 Unspecified osteoarthritis, unspecified site
CPT/HCPCS: 58262; 36415; 81025; 82962; 83735; 85025; 86850; 86900; 86901; 88307; 93005; J7120; J2405

== ENCOUNTER 2021-10-02 17:10 | Emergency (ER) | payer OTHER, SELFPAY ==
[2021-10-02] VITALS (8 sets, daily range): BP systolic 130–170; BP diastolic 74–110; PULSE 55–87; RESP 13–18; TEMP 36.4; O2SAT 96–100; BMI 25.8
--- NOTE | 2021-10-02 17:29 | CT_ITS ---
STUDY: CT BRAIN WITHOUT CONTRAST REASON FOR EXAM: Female, 51 years old. headache, HTN RADIATION DOSAGE (If Supplied By Facility): CTDIvol = ( 44.99 ) mGy, DLP = ( 796.11 ) mGycm TECHNIQUE: Transaxial CT imaging of the brain was performed without administration of intravenous contrast material. Individualized dose optimization techniques were used for this CT. COMPARISON: No relevant priors. FINDINGS: Normal soft tissue structures. Normal calvarium. Normal size ventricles and extra-axial spaces for the patient''s age. Minor periventricular white matter ischemic changes. Normal basal ganglia and thalami. Normal brainstem. Normal cerebellum. There is no intracranial hemorrhage. There are no findings of an acute ischemic infarction. Normal visualized paranasal sinuses. CT/Brain/Head without Contrast IMPRESSION: Minor periventricular white matter ischemic changes. No acute bleed. If concern for acute infarct MRI recommended Electronically Signed: Michael Jacobo MD at 18:45 EDT ,
--- NOTE | 2021-10-02 17:30 | EKG12_ITS ---
Test Reason : cp Blood Pressure : / mmHG Vent. Rate : 058 BPM Atrial Rate : 058 BPM P-R Int : 174 ms QRS Dur : 074 ms QT Int : 400 ms P-R-T Axes : 058 046 047 degrees QTc Int : 392 ms Sinus bradycardia Low voltage QRS Borderline ECG Confirmed by CHALO MARTINEZ, URIAH ([id number]), editor trade journal JAYLA BRADLEY ([id number]) on 10/03/2021 1:48:28 PM Referred By: Benny Confirmed By:URIAH ISABEL MD
--- NOTE | 2021-10-02 17:35 | EDS_ITS ---
HPI History of Present Illness Chief Complaint: Palpitations Detail of Chief Complaint: High blood pressure, chest pressure, headache Informant: patient Onset/Context/Timing Onset: Today Narrative Narrative: Patient presents secondary to high blood pressure, chest pressure, headache. Patient states for the last 3 weeks her blood pressures been elevated around 150s over 100. Today she felt like her blood pressure was high and developed pressure in the right side of her chest. She also has a pulsating sensation that goes up the right side of her neck and into her head. She stopped at her PCPs office and her blood pressure was noted to be 156/98. She presented to the emergency room for further evaluation. She states that she has never had problems with high blood pressure in the past. She did have her blood pressure checked earlier this month at a doctor's appointment and noted to be 130/80 at that time. She was started on Ditropan at that time. She has noticed increased thirst and muscle spasms in her legs since starting this medication. She has also been on Effexor since March. [facility] Medical History Arthritis Breast pain, right Knee pain Leg cramps Migraine headache Non-smoker Shortness of breath on exertion Stomach ulcer Wears contact lenses Home Medications cholecalciferol (vitamin D3) 25 mcg (1,000 unit) capsule 25 mcg PO QHS 11/20/20 [History Last Taken 03/27/21] vitamin E mixed 400 unit capsule 400 unit PO MOWEFR 11/20/20 [History Last Taken 03/27/21] zinc 50 mg tablet 50 mg PO DAILY 11/20/20 [History Last Taken 03/27/21] venlafaxine 37.5 mg capsule,extended release 24 hr (Effexor XR) 75 mg PO QHS 03/21/21 [History Last Taken 03/27/21] oxybutynin chloride 5 mg tablet 5 mg PO DAILY 04/17/21 [History Last Taken Unknown] hydrochlorothiazide 12.5 mg tablet 12.5 mg PO DAILY #30 tabs 10/02/21 [Rx Last Taken Unknown] Allergy/AdvReac Type Severity Reaction Status Date / Time amoxicillin [Amoxicillin] Allergy Mild Rash Verified 10/02/21 17:14 erythromycin base Allergy Rash Verified 10/02/21 17:14 [Erythromycin Base] Latex, Natural Rubber Allergy Rash Verified 10/02/21 17:14 Sulfa (Sulfonamide Allergy Unknown Verified 10/02/21 17:14 Antibiotics) sulfamethoxazole Allergy Other Verified 10/02/21 17:14 [From Bactrim] trimethoprim [From Bactrim] Allergy Other Verified 10/02/21 17:14 hydromorphone [From Dilaudid] AdvReac Vomiting Verified 10/02/21 17:14 tetracycline AdvReac Nausea/Vom/ Verified 10/02/21 17:14 Diarrhea gabapenton Allergy Intermediate rash Uncoded 10/02/21 17:14 narcotics AdvReac Nausea/Vom/ Uncoded 10/02/21 17:14 Diarrhea Family History Father Cancer Brother CVA (cerebral vascular accident) Mental and behavioral problem Mother Colon cancer Surgical History Anal fissure History of appendectomy History of cholecystectomy History of total vaginal hysterectomy (TVH) Hx of spinal surgery Status post bilateral salpingectomy Social History number of children: 3 current occupational status: employed current occupation: [employer] L[employer]D Smoking Status: Never smoker alcohol intake: never substance use type: does not use seatbelt use: always do you feel safe at home: Yes 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 history: 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 Constitutional Constitutional ED: Denies chills or fever(s) Eyes Eyes: Denies change in vision or discharge from eye(s) ENT ENT ED: Reports other Details: Right-sided neck pain ; Denies discharge from eye(s), rhinorrhea or sore throat Cardiovascular Cardiovascular: Reports chest pain; Denies palpitations Respiratory/Chest Respiratory/Chest: Denies cough or dyspnea Gastrointestinal Gastrointestinal: Denies abdominal pain, diarrhea, nausea or vomiting Genitourinary Genitourinary ED: Denies difficulty urinating or dysuria Musculoskeletal Musculoskeletal: Denies back pain or extremity pain Integumentary Denies Abrasions or rash Neurologic Neurologic: Reports headache(s); Denies weakness Psychiatric Psychiatric: Denies anxiety or depression Allergic/Immunologic Allergic/Immunologic ED: Denies lip swelling or urticaria EXAM Physical Exam Const Vital Signs: 10/02/21 17:12 10/02/21 17:24 10/02/21 17:32 Temperature 97.5 F L Temperature Source Temporal Pulse Rate 87 Respiratory Rate 16 Respiratory Effort Normal Blood Pressure 156/110 H 170/105 H Blood Pressure Mean 125 126 Pulse Ox 97 Oxygen Delivery Method Room Air 10/02/21 17:49 10/02/21 18:15 10/02/21 18:41 Temperature Temperature Source Pulse Rate 68 56 L Respiratory Rate 14 13 Respiratory Effort Blood Pressure 161/93 H 152/89 H 141/83 H Blood Pressure Mean 115 110 102 Pulse Ox 98 96 Oxygen Delivery Method Room Air Room Air 10/02/21 18:51 10/02/21 20:43 Temperature Temperature Source Pulse Rate 55 L 58 L Respiratory Rate 17 18 Respiratory Effort Blood Pressure 146/88 H 130/74 H Blood Pressure Mean 107 92 Pulse Ox 98 100 Oxygen Delivery Method Room Air Room Air Positive well nourished and well developed General Appearance ED: well developed HEENT Reports normocephalic and head/scalp atraumatic Eyes PERRL and EOMs intact bilaterally Neck supple Chest Wall inspection of chest normal and palpation of chest normal Resp normal respiratory effort and clear to auscultation bilaterally Cardio regular rate and regular rhythm GI normal to inspection, nondistended, normoactive bowel sounds Palpation: soft Extremity normal to inspection Neuro oriented x3 and no sensory deficits noted Sensorium / Orientation: alert Motor Exam: strength 5/5 throughout Psych mental status grossly normal Skin no rashes or lesions noted MDM MDM MDM Narrative Medical decision making narrative: Patient's blood pressure was in the 170s over 1 teens the time of my initial exam. She is ordered 10 mg of IV labetalol. EKG, chest x-ray, head CT obtained. Lab work ordered. Lab Data Attestation: I reviewed the patient's lab results. Labs: Laboratory Results - last 24 hr 10/02/21 10/02/21 10/02/21 17:45 17:45 20:06 WBC 7.2 RBC 4.92 Hgb 14.3 Hct 43.0 MCV 87.4 MCH 29.1 MCHC 33.3 RDW Std Deviation 39.8 RDW Coeff of Vero 12.6 Plt Count 240 MPV 10.5 Immature Gran % (Auto) 0.400 Neut % (Auto) 70.5 H Lymph % (Auto) 22.1 [place] % (Auto) 5.0 Eos % (Auto) 1.4 Baso % (Auto) 0.6 Absolute Neuts (auto) 5.1 Absolute Lymphs (auto) 1.60 Nucleated RBC % 0 Sodium 139 Potassium 4.0 Chloride 106 Carbon Dioxide 30.0 Anion Gap 3 L BUN 15 Creatinine 0.81 Estim Creat Clear Calc 81.96 Est GFR (MDRD) Af Amer 96 Est GFR (MDRD) Non-Af 79 BUN/Creatinine Ratio 18.6 Glucose 88 Calcium 9.3 Troponin I High Sens 3 5 Radiography Chest X-Ray - ED: 2 View, Read by ED Physician, Normal, Heart, Lungs and Mediastinum Diagnostic Testing: Clinical Impression(s) from Imaging Studies Brain CT 10/02/21 17:29 IMPRESSION: Minor periventricular white matter ischemic changes. No acute bleed. If concern for acute infarct MRI recommended Electronically Signed: Michael Jacobo MD at 18:45 EDT , Chest X-Ray 10/02/21 18:08 IMPRESSION: Normal x-ray examination of the chest. Electronically Signed: Michael Jacobo MD at 19:05 EDT , EKG Initial EKG: Attestation: I personally reviewed and interpreted this EKG as follows: Interpretation: Sinus Bradycardia (Sinus bradycardia 58 bpm. No acute ischemia.) Treatment and Re-Evaluation Narrative: On repeat evaluation patient's chest and back pain improved with blood pressure control. Blood pressures are running in the 130s. She still complains of migraine. Lab work is reviewed and unremarkable. Two-view chest x-ray per my interpretation is normal. Radiologist interpretation is reviewed. Head CT normal. Patient is given Toradol, Reglan, Benadryl. At this time headache is significantly improved. Blood pressure is 132/82. Because the patient has been mildly bradycardic she will be started on hydrochlorothiazide. She is to follow-up with her doctor in 1 week for a blood pressure check. Return instructions provided. Discharge Plan Triage Chief Complaint: Palpitations ED Provider: Radha Zapata Dx/Rx/DC Orders Clinical Impression: Hypertension, Chest pain, Migraine Instructions: ED Chest Pain, Noncardiac, ED Hypertension New Begin Treatment, ED, Migraine (Classical) Prescriptions: New hydrochlorothiazide 12.5 mg tablet 12.5 mg PO DAILY Qty: 30 0RF No Action cholecalciferol (vitamin D3) 25 mcg (1,000 unit) capsule 25 mcg PO QHS vitamin E mixed 400 unit capsule 400 unit PO MOWEFR zinc 50 mg tablet 50 mg PO DAILY oxybutynin chloride 5 mg tablet 5 mg PO DAILY venlafaxine [Effexor XR] 37.5 mg capsule,extended release 24hr 75 mg PO QHS Primary Care Provider: Fabi Eric Referrals: Fabi Eric MD [Primary Care Provider] - 1 Week Disposition Disposition: Home, Self Care
[2021-10-02] MEDS: Labetalol (Prefilled) 20 MG/4 ML 10 MG IV (17:49)
[2021-10-02 17:53] LABS: Absolute Neutrophil Count 5.1 X10^3/uL (2.0-7.7); Basophil# 0.04 X10^3/uL; Basophil% 0.6 % (0-1); Eosinophils% 1.4 % (0-5); Hemoglobin 14.3 g/dL (12.0-15.0); Lymphocyte % 22.1 % (19-41); Mean Corp Hgb Conc 33.3 g/dL (32-36); Mean Corpuscular Hgb 29.1 pg (27.0-32.0); Mean Corpuscular Volume 87.4 fL (81-99); Mean Platelet Vol. 10.5 fl (6.2-12.0); Monocyte# 0.36 X10^3/uL; NRBC Flagged by Analyzer 0 % (0-5); Neutrophil % 70.5 % (47-70); Platelet Count 240 K/mm3 (150-450); RBC Distribution Width CV 12.6 % (11.6-14.6); RBC Distribution Width SD 39.8 fl (35.1-43.9); Red Blood Count 4.92 M/mm3 (4.2-5.4); White Blood Count 7.2 K/mm3 (4.4-11.0)
[2021-10-02 18:07] LABS: Anion Gap 3 (5-15); BUN 15 mg/dL (7-18); BUN/Creat Ratio 18.6 RATIO (10-20); Calcium,Total 9.3 mg/dL (8.5-10.1); Chloride 106 mmol/L (98-107); Creatinine, Serum 0.81 mg/dL (0.55-1.02); EST Glomerular Filtration Rate 79 mL/min (>60); Est Glom Filt Rate - Afr Amer 96 mL/min (>60); Estimated Creatinine Clearance 81.96 ml/min; Glucose 88 mg/dL (74-106); Sodium Level 139 mmol/L (136-145); Troponin-I HS 3 pg/mL (3.0-54.0)
--- NOTE | 2021-10-02 18:08 | RAD_ITS ---
STUDY: X-RAY CHEST REASON FOR EXAM: Female, 51 years old. chest pain TECHNIQUE: PA and lateral COMPARISON: None. FINDINGS: The lungs are clear and expanded. There is no demonstrated pleural abnormality. Normal size heart. Normal mediastinum and ar. Normal visualized pulmonary arteries. Normal visualized aortic arch and descending thoracic aorta. Normal visualized thoracic spine. Normal visualized ribs, clavicles, and shoulders. There is no demonstrated abnormality of the visualized soft tissue structures of the upper abdomen. RAD/Chest PA and Lateral IMPRESSION: Normal x-ray examination of the chest. Electronically Signed: Michael Jacobo MD at 19:05 EDT ,
[2021-10-02] MEDS: DiphenhydrAMINE 50 MG/ML Syringe 12.5 MG IV (19:59)
[2021-10-02] MEDS: Metoclopramide 10 MG/2 ML Vial 5 MG IV (20:01)
[2021-10-02] MEDS: Ketorolac 30 MG/ML Syringe IV (20:03)
[2021-10-02 20:29] LABS: Troponin-I HS 5 pg/mL (3.0-54.0)
== END 2021-10-02 21:09 | disposition home or self-care (01) ==
PROVIDERS: Emergency Provider Emergency Medicine; PCP Internal Medicine; Visit Provider Emergency Medicine
DX: I10 Essential (primary) hypertension (principal); R07.9 Chest pain, unspecified; G43.909 Migraine, unspecified, not intractable, without status migrainosus; Z79.899 Other long term (current) drug therapy
CPT/HCPCS: 70450; 71046; 80048; 84484; 85025; 93005; 96374; 96375; 99284; A4216

== ENCOUNTER 2021-10-03 17:26 | Emergency (ER) | payer OTHER, SELFPAY ==
[2021-10-03 17:27] VITALS: BP 160/129; PULSE 107; RESP 23; TEMP 36.3; O2SAT 99; BMI 25.0
[2021-10-03 17:31] VITALS: BP 173/120; PULSE 83; RESP 14; O2SAT 100
--- NOTE | 2021-10-03 17:33 | EKG12_ITS ---
Test Reason : CP Blood Pressure : / mmHG Vent. Rate : 095 BPM Atrial Rate : 095 BPM P-R Int : 154 ms QRS Dur : 074 ms QT Int : 354 ms P-R-T Axes : 063 056 050 degrees QTc Int : 444 ms Normal sinus rhythm Low voltage QRS Borderline ECG Confirmed by CHALO MARTINEZ, URIAH ([id number]), visual effects editor JAYLA BRADLEY ([id number]) on 10/06/2021 10:17:34 AM Referred By: ERIC Confirmed By:URIAH ISABEL MD
--- NOTE | 2021-10-03 17:38 | EDS_ITS ---
HPI History of Present Illness Chief Complaint: Chest Pain Detail of Chief Complaint: Pain radiating into her chest, and jaw Informant: patient Onset/Context/Timing Onset: Hours (50 minutes prior to presentation) Activity at onset: sudden Timing: Continuous Quality: Positive for Stabbing (Stabbing ripping pain) Location: - (Intrascapular into the chest and jaw) Current Severity: Severe Maximum Severity: Severe Worsened By: Nothing Relieved By: Nothing Associated Symptoms: Positive for Nausea; Negative for Vomiting, Diaphoresis, Dyspnea, Cough, Fever, Lightheadedness, Acid Reflux or Palpitations Narrative Narrative: Patient was seen last night. Patient's cardiac work-up was negative last night. Patient was started on hydrochlorothiazide. The time of discharge her systolic pressure was 130. She has had recent travel. She was in [place]. There is a family history of VTE. Patient denies history of VTE. Patient states last evening she had pain in the back of her leg. She presently does not have pain in her leg. She denies shortness of breath. She denies pain with breathing. She denies pain with movement. There is family history of subarachnoid hemorrhage and aneurysm of the brain. There is no known history of aneurysm of the aorta or dissection of the aorta. Patient is status post cholecystectomy. Patient states she was wiping a window when the pain started. Prior Similar Symptoms: Yes and - (Seen last evening for hypertension) Recent Illness/Hospitalization: Yes CVD Risk Factors: Positive for Hypertension; Negative for Diabetes, Hypercholesterolemia, Family History 1' </=55 or Smoking PE Risk Factors: Positive for Recent Travel/Surgery; Negative for Recent Immobilization, Prior DVT or PE, Cancer or OCP + Smoking + >/=35 TAD Risk Factors: Positive for Hypertension; Negative for Marfan's Syndrome or Family History [facility] Medical History Arthritis Breast pain, right Knee pain Leg cramps Migraine headache Non-smoker Shortness of breath on exertion Stomach ulcer Wears contact lenses Home Medications cholecalciferol (vitamin D3) 25 mcg (1,000 unit) capsule 25 mcg PO QHS 11/20/20 [History Last Taken 03/27/21] vitamin E mixed 400 unit capsule 400 unit PO MOWEFR 11/20/20 [History Last Taken 03/27/21] zinc 50 mg tablet 50 mg PO DAILY 11/20/20 [History Last Taken 03/27/21] venlafaxine 37.5 mg capsule,extended release 24 hr (Effexor XR) 75 mg PO QHS 03/21/21 [History Last Taken 03/27/21] oxybutynin chloride 5 mg tablet 5 mg PO DAILY 04/17/21 [History Last Taken Unknown] hydrochlorothiazide 12.5 mg tablet 12.5 mg PO DAILY #30 tabs 10/02/21 [Rx Last Taken Unknown] clonidine HCl 0.1 mg tablet 0.1 mg PO .As directed #14 tabs 10/03/21 [Rx Last Taken Unknown] Allergy/AdvReac Type Severity Reaction Status Date / Time amoxicillin [Amoxicillin] Allergy Mild Rash Verified 10/02/21 17:14 erythromycin base Allergy Rash Verified 10/02/21 17:14 [Erythromycin Base] Latex, Natural Rubber Allergy Rash Verified 10/02/21 17:14 Sulfa (Sulfonamide Allergy Unknown Verified 10/02/21 17:14 Antibiotics) sulfamethoxazole Allergy Other Verified 10/02/21 17:14 [From Bactrim] trimethoprim [From Bactrim] Allergy Other Verified 10/02/21 17:14 gabapentin AdvReac Intermediate Rash Verified 10/03/21 17:38 hydromorphone [From Dilaudid] AdvReac Vomiting Verified 10/02/21 17:14 tetracycline AdvReac Nausea/Vom/ Verified 10/02/21 17:14 Diarrhea narcotics AdvReac Nausea/Vom/ Uncoded 10/02/21 17:14 Diarrhea Family History Father Cancer Brother CVA (cerebral vascular accident) Mental and behavioral problem Mother Colon cancer Surgical History Anal fissure History of appendectomy History of cholecystectomy History of total vaginal hysterectomy (TVH) Hx of spinal surgery Status post bilateral salpingectomy Social History number of children: 3 current occupational status: employed current occupation: [employer] L[employer]D Smoking Status: Never smoker alcohol intake: never substance use type: does not use seatbelt use: always do you feel safe at home: Yes 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 history: 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 Constitutional ED: Denies chills, fever(s), subjective, sweats or weight loss Eyes Eyes: Reports none; Denies blurry vision, change in vision or diplopia ENT ENT ED: Denies ear pain, rhinorrhea or sore throat Cardiovascular Cardiovascular: Reports as per HPI; Denies orthopnea or paroxysmal nocturnal dyspnea Respiratory/Chest Respiratory/Chest: Denies cough, dyspnea, dyspnea on exertion, orthopnea or paroxysmal nocturnal dyspnea Gastrointestinal Gastrointestinal: Reports nausea; Denies abdominal pain, constipation, diarrhea, melena or vomiting Genitourinary Genitourinary ED: Denies dysuria, hematuria or urinary frequency Musculoskeletal Musculoskeletal: Reports back pain and neck pain; Denies arthralgias or myalgias Integumentary Denies abscess, Abrasions or rash Neurologic Neurologic: Reports headache(s); Denies paresthesias or weakness Psychiatric Psychiatric: Reports anxiety; Denies depression EXAM Physical Exam Const Vital Signs: 10/03/21 17:27 10/03/21 17:31 10/03/21 17:50 Temperature 97.4 F L Temperature Source Temporal Pulse Rate 107 H 83 Respiratory Rate 23 H 14 Blood Pressure 160/129 H 173/120 H Blood Pressure Mean 139 137 Pulse Ox 99 100 100 Oxygen Delivery Method Room Air Room Air Room Air 10/03/21 17:50 10/03/21 18:32 10/03/21 19:10 Temperature 97.3 F L Temperature Source Temporal Pulse Rate 82 72 63 Respiratory Rate 15 12 10 L Blood Pressure 154/87 H 144/92 H 132/83 H Blood Pressure Mean 109 109 99 Pulse Ox 99 94 98 Oxygen Delivery Method Room Air Room Air Room Air Positive well nourished and well developed Constitutional Narrative: Patient is an apparent discomfort. General Appearance ED: well developed; Negative for pallor HEENT Reports moist mucous membranes HEENT Narrative: Ears normal. Nares patent. Postrepair without erythema or exudate. Eyes PERRL and EOMs intact bilaterally General Eye ED: Negative for pale conjunctiva or scleral icterus Neck no lymphadenopathy, supple and no JVD Neck Narrative: There is no carotid bruit. Trachea is midline. There is no inspiratory expi ratory stridor. Chest Wall inspection of chest normal and palpation of chest normal Resp normal respiratory effort and clear to auscultation bilaterally Cardio regular rate, regular rhythm, S1 normal heart sound, S2 normal heart sound and no murmurs GI normal to inspection, nondistended, normoactive bowel sounds, soft to palpation, non-tender, non-distended and no masses; Negative for hepatosplenomegaly GI Narrative: There is no pulsatile mass. There is no abdominal bruit. Back/Spine no CVA tenderness and no thoracic nor lumbar tenderness Extremity normal to inspection Extremity Narrative: There is no asymmetry, swelling, discoloration, leg vein distention, palpable cords or tenderness along the distribution of the deep venous system. Neuro oriented x3, CN's II-XII intact bilaterally and no sensory deficits noted Sensorium / Orientation: awake Motor Exam: strength 5/5 throughout Psych Psych Narrative: Patient appears anxious. Skin no rashes or lesions noted and no wounds General Skin Exam: Negative for jaundice or pallor MDM MDM MDM Narrative Medical decision making narrative: With 2 troponins less than 8 and a delta of 2 and a negative dicta value of 1% doubt this to be cardiac. Concern that this may represent biliary pathology however patient is status postcholecystectomy. Entertain possibility of atypical presentation of pulmonary embolus and aortic dissection. Since patient's blood pressure is 173/120 and there is a concern for aortic dissection patient was treated with 20 mg of labetalol IV push. Review of records from last evening revealed that she was given labetalol last evening and had good results. Will obtain chest x-ray to compare mediastinum and to evaluate for widening of the mediastinum which would raise concern that this represents a aortic dissection. Review of prior labs indicates patient has no evidence of renal dysfunction or endorgan injury. With an elevated D-dimer and back pain described as a stabbing ripping discomfort concerning as patient has a aortic dissection. Will obtain a CTA to rule out dissection. CT a of the chest for aortic dissection is negative. Furthermore there was no pathology noted in the chest per Dr. Townsend, the radiologist. Patient be discharged to home with prescription for clonidine to be taken if diastolic is greater than 120. Lab Data Attestation: I reviewed the patient's lab results. Labs: Laboratory Results - last 24 hr 10/03/21 10/03/21 10/03/21 17:36 17:36 17:36 WBC 6.8 RBC 5.02 Hgb 14.8 Hct 44.1 MCV 87.8 MCH 29.5 MCHC 33.6 RDW Std Deviation 40.6 RDW Coeff of Vero 12.6 Plt Count 268 MPV 10.3 Immature Gran % (Auto) 0.300 Neut % (Auto) 65.3 Lymph % (Auto) 26.4 [place] % (Auto) 5.7 Eos % (Auto) 1.6 Baso % (Auto) 0.7 Absolute Neuts (auto) 4.4 Absolute Lymphs (auto) 1.79 Nucleated RBC % 0 D-Dimer Quant (PE/DVT) 0.53 H* Sodium 139 Potassium 4.2 Chloride 104 Carbon Dioxide 28.0 Anion Gap 7 BUN 16 Creatinine 1.00 Estim Creat Clear Calc 66.39 Est GFR (MDRD) Af Amer 75 Est GFR (MDRD) Non-Af 62 BUN/Creatinine Ratio 16.0 Glucose 85 Calcium 9.8 Troponin I High Sens < 3 L 10/03/21 19:50 WBC RBC Hgb Hct MCV MCH MCHC RDW Std Deviation RDW Coeff of Vero Plt Count MPV Immature Gran % (Auto) Neut % (Auto) Lymph % (Auto) [place] % (Auto) Eos % (Auto) Baso % (Auto) Absolute Neuts (auto) Absolute Lymphs (auto) Nucleated RBC % D-Dimer Quant (PE/DVT) Sodium Potassium Chloride Carbon Dioxide Anion Gap BUN Creatinine Estim Creat Clear Calc Est GFR (MDRD) Af Amer Est GFR (MDRD) Non-Af BUN/Creatinine Ratio Glucose Calcium Troponin I High Sens 5 Radiography Chest X-Ray - ED: 1 View and Read by ED Physician (Independently reviewed and interpreted by me at 1811 as unremarkable. The mediastinum is unremarkable. Perihilar regions unremarkable. Cardiac silhouette size normal. Osseous structures are normal. This is a single view portable chest x-ray) Diagnostic Testing: Clinical Impression(s) from Imaging Studies Chest X-Ray 10/03/21 17:50 IMPRESSION: No acute radiographic abnormalities. Electronically Signed: Parrish Harding MD at 19:21 EDT , Chest CTA 10/03/21 18:14 IMPRESSION: No acute abnormalities in the chest. Specifically, no evidence of aortic dissection. Electronically Signed: Parrish Harding MD at 19:48 EDT , EKG Initial EKG: Attestation: I personally reviewed and interpreted this EKG as follows: Interpretation: Sinus Rhythm (Normal sinus rhythm rate of 95. There is low voltage. AK interval is 154 ms. QRS duration 74 ms. QT duration 354 ms. [place] is normal. 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 (Lengthy discussion with family at the time of discharge and patient) Discharge Plan Triage Chief Complaint: Chest Pain ED Provider: Peterson Be Dx/Rx/DC Orders Clinical Impression: Accelerated essential hypertension, Radiating back pain Instructions: ED High Blood Pressure Hypertension Prescriptions: New clonidine HCl 0.1 mg tablet 0.1 mg PO .As directed Qty: 14 0RF Rx Instructions: Take a clonidine tablet if your diastolic blood pressure is greater than 110 No Action cholecalciferol (vitamin D3) 25 mcg (1,000 unit) capsule 25 mcg PO QHS vitamin E mixed 400 unit capsule 400 unit PO MOWEFR zinc 50 mg tablet 50 mg PO DAILY oxybutynin chloride 5 mg tablet 5 mg PO DAILY venlafaxine [Effexor XR] 37.5 mg capsule,extended release 24hr 75 mg PO QHS hydrochlorothiazide 12.5 mg tablet 12.5 mg PO DAILY Qty: 30 0RF Primary Care Provider: Fabi Eric Referrals: Fabi Eric MD [Primary Care Provider] - 1 Week Activity Restrictions/Additional Instructions: If your diastolic blood pressure is greater than 110 take a clonidine tablet. If no improvement in 1 to 2 hours return to the emergency department Disposition Disposition: Home, Self Care
[2021-10-03] MEDS: 0.9% Normal Saline 1,000 ML 150 ML IV (17:43)
[2021-10-03] MEDS: HYDROmorphone 0.5 MG/0.5 ML SYRINGE IV (17:43)
[2021-10-03] MEDS: Ondansetron 4 MG/2 ML Vial IV (17:43)
[2021-10-03 17:45] LABS: Absolute Lymphocyte Count 1.79 X10^3/uL (0.83-4.51); Absolute Neutrophil Count 4.4 X10^3/uL (2.0-7.7); Basophil# 0.05 X10^3/uL; Basophil% 0.7 % (0-1); Eosinophil# 0.11 X10^3/uL; Eosinophils% 1.6 % (0-5); Hematocrit 44.1 % (37-47); Hemoglobin 14.8 g/dL (12.0-15.0); Lymphocyte # 1.79 X10^3/ul (0.83-4.51); Lymphocyte % 26.4 % (19-41); Mean Corp Hgb Conc 33.6 g/dL (32-36); Mean Corpuscular Hgb 29.5 pg (27.0-32.0); Mean Corpuscular Volume 87.8 fL (81-99); Mean Platelet Vol. 10.3 fl (6.2-12.0); Monocyte# 0.39 X10^3/uL; Monocyte% 5.7 % (0-10); NRBC Flagged by Analyzer 0 % (0-5); Neutrophil # 4.43 X10^3/uL (2.7-7.7); Neutrophil % 65.3 % (47-70); Platelet Count 268 K/mm3 (150-450); RBC Distribution Width CV 12.6 % (11.6-14.6); RBC Distribution Width SD 40.6 fl (35.1-43.9); Red Blood Count 5.02 M/mm3 (4.2-5.4); White Blood Count 6.8 K/mm3 (4.4-11.0)
[2021-10-03 17:50] VITALS: BP 154/87; PULSE 82; RESP 15; O2SAT 100; O2SAT 99
--- NOTE | 2021-10-03 17:50 | RAD_ITS ---
INDICATION: chest pain EXAMINATION/TECHNIQUE: X-RAY - XR Chest 1 View COMPARISON: 10/02/2021. FINDINGS: The lungs are clear. The cardiomediastinal silhouette is unremarkable. No pleural effusion or pneumothorax. Degenerative changes of the thoracic spine. RAD/Chest 1 View (Portable) IMPRESSION: No acute radiographic abnormalities. Electronically Signed: Parrish Harding MD at 19:21 EDT ,
[2021-10-03 18:04] LABS: D-Dimer Quantitative (DVT/PE) 0.53 FEU/ug/m (0.27-0.49)
[2021-10-03 18:14] LABS: Anion Gap 7 (5-15); BUN 16 mg/dL (7-18); Calcium,Total 9.8 mg/dL (8.5-10.1); Chloride 104 mmol/L (98-107); EST Glomerular Filtration Rate 62 mL/min (>60); Est Glom Filt Rate - Afr Amer 75 mL/min (>60); Estimated Creatinine Clearance 66.39 ml/min; Glucose 85 mg/dL (74-106); Potassium 4.2 mmol/L (3.5-5.1); Sodium Level 139 mmol/L (136-145); Troponin-I HS (w/2H Reflex) < 3 pg/mL (3.0-54.0)
--- NOTE | 2021-10-03 18:14 | CT_ITS ---
INDICATION: Suspect aortic dissection EXAMINATION: CTA Chest WO/W Contrast Injection TECHNIQUE: Helically acquired images were obtained of the chest following administration of IV contrast. A radiation dose optimization technique was used for this scan. 3D postprocessing images including MIPS were reviewed. IV Contrast dosage and agent: IV 75mL [id number] COMPARISON: None. FINDINGS: Lungs: Unremarkable Mediastinum: The cardiomediastinal silhouette is not enlarged. No mediastinal, hilar or axillary adenopathy. The thoracic aorta is unremarkable. No obvious filling defect seen within the visualized pulmonary arteries. Pleura: Unremarkable Bones/Soft tissues: No suspicious osseous or soft tissue lesions Upper abdomen: No visualized abnormalities in the upper abdomen. CT/CTA Chest W/WO Contrast IMPRESSION: No acute abnormalities in the chest. Specifically, no evidence of aortic dissection. Electronically Signed: Parrish Harding MD at 19:48 EDT ,
[2021-10-03 18:32] VITALS: BP 144/92; PULSE 72; RESP 12; O2SAT 94
[2021-10-03 19:10] VITALS: BP 132/83; PULSE 63; RESP 10; TEMP 36.3; O2SAT 98
[2021-10-03 19:41] LABS: Reflex Troponin-HS? (from REC) Y
[2021-10-03 20:14] LABS: Troponin-I HS 5 pg/mL (3.0-54.0)
[2021-10-03 20:31] VITALS: BP 135/64; PULSE 78; RESP 16; O2SAT 96
== END 2021-10-03 20:31 | disposition home or self-care (01) ==
PROVIDERS: Emergency Provider Emergency Medicine; PCP Internal Medicine; Visit Provider Emergency Medicine
DX: I10 Essential (primary) hypertension (principal); M54.9 Dorsalgia, unspecified; Z79.899 Other long term (current) drug therapy
CPT/HCPCS: 71045; 71275; 80048; 84484; 85025; 85379; 93005; 96374; 96375; 99284; J7030; Q9967; A4216; J2405

== ENCOUNTER → 2021-11-18 | Outpatient (CLI) | payer OTHER, SELFPAY ==
[2021-11-18 15:13] LABS: Free T3 3.2 pg/mL (2.18-3.98); T4 Total, Thyroxin 9.8 ug/dL (4.8-13.9); Thyroid Stim Hormone (TSH) 0.94 uIU/mL (0.358-3.74)
== END | disposition home or self-care (01) ==
LOC: LAB 13:50
PROVIDERS: PCP Family Medicine; Referring Provider Family Medicine; Visit Provider Family Medicine
DX: I10 Essential (primary) hypertension (principal)
CPT/HCPCS: 36415; 84436; 84443; 84481

== ENCOUNTER 2021-11-28 11:00 | Outpatient (RCR) | payer OTHER, SELFPAY ==
--- NOTE | 2022-01-22 07:28 | HP.PT.NRP ---
ANNA MARIEKODI MILLER was seen in my office for initial evaluation on 11/06/21. The following Plan of Care was established for this patient: Manual Therapy Techniques to Include: Functional dry needling This patient was last seen in our office . Pertinent comments regarding their Physical therapy will appear below: Patient has not attended physical therapy in over 30 days- appropriate to be discharged and return to the MD as needed. At this point I will be discontinuing this patient from physical therapy. I would be happy to see this patient again in the future if found appropriate by the physician. Thank you! Manuela Sauceda, KLAE Balance/Gait/Functional tests - Balance/Special Test Scores Oswestry Low Back Score: 14
== END 2021-11-28 19:00 | disposition home or self-care (01) ==
LOC: PT 11:00
PROVIDERS: PCP Family Medicine; Referring Provider Family Medicine; Visit Provider Family Medicine
DX: M54.9 Dorsalgia, unspecified (principal)
CPT/HCPCS: 97035; 97113; 97140

== ENCOUNTER → 2021-12-09 | Outpatient (CLI) | payer OTHER, SELFPAY ==
--- NOTE | 2021-12-09 18:34 | CT_ITS ---
EXAM: CT ANGIOGRAPHY ABDOMEN AND PELVIS WITHOUT AND WITH INTRAVENOUS CONTRAST CLINICAL INDICATION: hypertenisve urgency TECHNIQUE: Helically acquired angiography images were obtained of the abdomen and pelvis without and with intravenous contrast. This CT exam was performed using one or more of the following dose reduction techniques: automated exposure control, adjustment of the mA and/or kV according to patient size, and/or use of iterative reconstruction technique. This report was created using [employer] report generation technology. MIP reconstructed images were created and reviewed. CONTRAST: IV 100mL [id number] COMPARISON: None. FINDINGS: VASCULATURE: AORTA: No acute findings. Normal caliber abdominal aorta. No dissection. CELIAC TRUNK AND MESENTERIC ARTERIES: No acute findings. No occlusion or significant stenosis. No dissection. RENAL ARTERIES: No renal artery stenosis. ILIAC ARTERIES: No acute findings. No occlusion or significant stenosis. No dissection. LOWER THORAX: Bibasilar dependent atelectasis. No cardiomegaly. No significant pericardial effusion. ABDOMEN: LIVER: Unremarkable. Homogeneous. No focal mass. GALLBLADDER AND BILE DUCTS: The gallbladder is not identified and may be surgically absent. No intra- or extrahepatic biliary ductal dilation. PANCREAS: Unremarkable. No focal cystic or solid mass. SPLEEN: Unremarkable. Normal size without focal cystic or solid mass. ADRENALS: Unremarkable. No nodules. KIDNEYS AND URETERS: No urinary stone or renal obstruction. Normal renal size and position. STOMACH AND BOWEL: Unremarkable. No stomach or bowel distention. No focal inflammatory change. PELVIS: APPENDIX: No evidence of acute appendicitis. BLADDER: Unremarkable. REPRODUCTIVE: Hysterectomy. ABDOMEN and PELVIS: INTRAPERITONEAL SPACE: Unremarkable. No ascites or other fluid collection. No free air. BONES/JOINTS: Unremarkable. No suspicious lytic or blastic abnormality. SOFT TISSUES: Unremarkable. No discrete abdominal or pelvic wall hernia. LYMPH NODES: Unremarkable. No enlarged lymph nodes. CT/CT ANGIO ABD&PEL W/O&W/DYE IMPRESSION: Unremarkable CTA evaluation of the abdomen/pelvis. Electronically Signed: Willie Jang MD at 2:14 EDT ,
[2021-12-09 19:16] LABS: CREATININE FINGERSTICK < 0.9 mg/dL (0.55-1.02); EGFR FINGERSTICK > 60.0000 mL/min (>60)
== END | disposition home or self-care (01) ==
LOC: CT 18:34
PROVIDERS: PCP Family Medicine; Referring Provider Internal Medicine Cardiovascular Disease; Visit Provider Internal Medicine Cardiovascular Disease
DX: R06.09 Other forms of dyspnea (principal); R00.2 Palpitations; I10 Essential (primary) hypertension; R51.9 Headache, unspecified; R07.9 Chest pain, unspecified
CPT/HCPCS: 74174; Q9967; A4216

== ENCOUNTER → 2022-02-04 | Outpatient (CLI) | payer OTHER, SELFPAY ==
--- NOTE | 2022-02-04 14:05 | ECHOD_ITS ---
Reason For Study: HTN Procedure This was a 2D Doppler, Color Flow transthoracic echocardiogram. Exam performed in department. Left Ventricle Normal LV size. Left ventricular systolic function is normal. The estimated ejection fraction is 65 %. Normal diastology for age. No regional wall motion abnormalities noted. Right Ventricle Normal RV size. Normal systolic function. Atria Normal left atrium. Normal right atrium. Mitral Valve Normal mitral valve. Tricuspid Valve Normal tricuspid valve. Aortic Valve Normal aortic valve. Trisinus/trileaflet aortic valve. Pulmonic Valve Normal pulmonic valve. Great Vessels Normal aortic root. The pulmonary artery is normal size. Normal inferior vena cava. Pericardium/Pleural No pericardial effusion. MMode/2D Measurements & Calculations LVIDd: 4.4 cm IVSd: 0.96 cm Ao root diam: 3.2 cm LVIDs: 2.2 cm LVPWd: 0.76 cm FS: 50.6 % LAV(MOD-sp4): 25.3 ml LVAd ap4: 25.8 cm2 SV(MOD-sp4): 52.3 ml LVLd ap4: 7.7 cm EDV(MOD-sp4): 69.3 ml EDV(sp4-el): 73.9 ml LVAs ap4: 11.2 cm2 LVLs ap4: 6.1 cm ESV(MOD-sp4): 17.0 ml ESV(sp4-el): 17.6 ml EF(MOD-sp4): 75.5 % EF(sp4-el): 76.2 % SV(sp4-el): 56.3 ml LA A4 area: 11.7 cm2 LA dimension(2D): 3.3 cm RA A4 area: 10.0 cm2 Time Measurements MV dec time: 0.15 sec Doppler Measurements & Calculations MV E max zachary: 103.5 cm/sec Lat Peak E' Zachary: 11.1 cm/sec Med Peak E' Zachary: 9.8 cm/sec MV A max zachary: 95.8 cm/sec E/E' lat: 9.4 E/E' med: 10.6 MV E/A: 1.1 MV V2 max: 109.0 cm/sec Ao V2 max: 127.8 cm/sec MV max P.8 mmHg MV dec slope: 709.6 cm/sec2 Ao max P.5 mmHg MV V2 mean: 67.6 cm/sec Ao V2 mean: 91.6 cm/sec MV mean P.1 mmHg Ao mean P.8 mmHg MV V2 VTI: 31.4 cm Ao V2 VTI: 31.6 cm AV (velocity ratio): 0.83 LV V1 max: 111.6 cm/sec PA V2 max: 81.1 cm/sec LV V1 max P.0 mmHg PA V2 mean: 57.9 cm/sec LV V1 mean P.7 mmHg LV V1 mean: 78.1 cm/sec LV V1 VTI: 26.1 cm ECHO/Echo Complete Interpretation Summary Normal LV size. Left ventricular systolic function is normal. The estimated ejection fraction is 65 %. Normal diastology for age. Structurally normal valves. Ordering Physician: Chon Javier Performed By: Gladis Garza RCS
== END | disposition home or self-care (01) ==
LOC: CVS 13:59
PROVIDERS: PCP Family Medicine; Visit Provider Internal Medicine Cardiovascular Disease
DX: I10 Essential (primary) hypertension (principal)
CPT/HCPCS: 93306

== ENCOUNTER → 2022-07-01 | Outpatient (CLI) | payer OTHER, SELFPAY ==
--- NOTE | 2022-07-01 17:19 | STRESSREP_ITS ---
Stress Test Report Exercise myocardial perfusion stress test. 52-year-old lady with a history of hypertension Stress protocol: Resting EKG demonstrates normal sinus rhythm with a rate of 62 bpm resting blood pressure is 134/88 mmHg. The patient exercised according to the regular Kevin protocol for a total duration of 9 minutes and 30 seconds attaining a maximum heart rate of 153 bpm which was 91% of maximum predicted heart rate; the maximum workload was 11.7 metabolic equivalents. At rest there were no ST or T wave changes noted to suggest ischemia and at peak exercise upsloping ST changes only were noted which did not meet the criteria for ischemia. No clinical angina was noted the test was terminated due to the target heart rate being achieved/fa tigue. The peak blood pressure was 172/80 mmHg. Rate-pressure product was 25,100. Myocardial perfusion protocol. 12.0 mCi of technetium 99m sestamibi was injected at rest. The patient exercised according to regular Kevin protocol for total duration of 9 minutes and 30 seconds and at peak exercise 35.5 mCi of technetium 99m sestamibi was injected stress images were obtained stress and rest images were reconstructed in comparing the short axis vertical long and horizontal long axis. Gated images were also obtained. Perfusion SPECT analysis: Review of the stress images demonstrate normal uptake of tracer noted in all areas of the myocardium. The resting images similarly demonstrate normal uptake of tracer noted in all areas of the myocardium. No areas of reversibility are noted to suggest ischemia no previous infarct was noted. Gated SPECT analysis: The gated ejection fraction is 80%. Conclusion: Normal exercise myocardial perfusion stress test at a high workload Preserved ejection fraction.
== END | disposition home or self-care (01) ==
LOC: CVS 06:26
PROVIDERS: PCP Family Medicine; Referring Provider Nurse Practitioner Gerontology; Visit Provider Nurse Practitioner Gerontology
DX: R07.9 Chest pain, unspecified (principal)
CPT/HCPCS: 78452; 93017; A9500; A4216

== ENCOUNTER → 2022-12-17 | Outpatient (CLI) | payer OTHER, SELFPAY ==
[2022-12-17 16:01] LABS: Free T3 2.6 pg/mL (2.18-3.98); T4 Free Direct 0.87 ng/dL (0.76-1.46); Thyroid Stim Hormone (TSH) 0.84 uIU/mL (0.358-3.74)
== END | disposition home or self-care (01) ==
LOC: LAB 13:32
PROVIDERS: PCP Family Medicine; Referring Provider Nurse Practitioner Gerontology; Visit Provider Nurse Practitioner Gerontology
DX: R63.5 Abnormal weight gain (principal)
CPT/HCPCS: 36415; 84439; 84443; 84481

== ENCOUNTER → 2023-05-04 | Outpatient (CLI) | payer OTHER, SELFPAY ==
--- NOTE | 2023-05-04 08:48 | BI_ITS ---
MAMMOGRAPHY - BILATERAL SCREENING REASON FOR EXAM: Female, 53 years old. Routine annual screening examination. PERTINENT HISTORY: Non-contributory. Occasional bilateral breast tenderness. TECHNIQUE: Digital bilateral breast maldonado (3D mammographic acquisition) in the CC and MLO projections. 2-D mediolateral oblique (MLO) and craniocaudad (CC) views of both breasts were obtained. CAD: Full Field Digital Mammography with Computer Added Detection was performed. COMPARISON: Comparison is made with prior study dated November 22, 2018 and May 27, 2011. FINDINGS: Breast Composition: The breasts are heterogeneously dense, which may obscure small masses. There are no dominant masses or suspicious calcifications. Stable small bilateral axillary lymph nodes. No other significant abnormalities are identified. There has been no significant change since the prior study. BI/SCRN MAMM (CAD)W/MALDONADO BILAT IMPRESSION: Stable bilateral screening mammogram. Yearly follow-up mammogram recommended. (A) ASSESSMENT CATEGORY: BIRADS Category 2: Benign. A letter regarding these results will be sent to the patient by the facility within 30 days. Approximately 10% of breast cancers are not detected by mammography. A normal mammogram should not delay biopsy of a clinically suspicious abnormality. [id number] Electronically Signed: Walker Mar MD at 9:59 EDT ,
--- OUTSIDE RECORDS SUMMARY | 2023-05-04 19:07 | XMS RPT_ITS | CCD ---
Author Name Unknown Address [address] [facility] [address] [place] [id number] Organization [facility] Care Team Providers Care Atmospheric Physics Professor Name Role Phone Darien Sidhu Unavailable Ricardo Frazier Unavailable Unavailable Unavailable Dr. RICARDO FRAZIER Primary Care Unavailable Melyssa Agarwal [facility] Allergies Allergy Classification Reported Allergen(s) Allergy Type Date of Onset Reaction(s) Facility Macrolides (antibiotic) (2 sources) Erythromycin; Translations: [erythromycin] Drug Allergy Diarrhea [facility] and Work Phone: Sulfonamides (antibiotic) (2 sources) Sulfonamides (Antibiotic); Translations: [Sulfa Drugs] Drug Allergy [facility] and Work Phone: Tetracyclines (antibiotic) (2 sources) Tetracycline; Translations: [tetracycline] Drug Allergy [facility] and Work Phone: (2 sources) Sulfonamides (Antibiotic); Translations: [Sulfa Drugs] drug allergy 11-17-2016 [facility] Work Phone: (1 source) Tetracycline Drug Allergy 11-17-2016 [facility] Work Phone: (1 source) Erythromycin; Translations: [erythromycin] Drug Allergy Diarrhea [facility] and Work Phone: (1 source) Tetracycline; Translations: [tetracycline] Drug Allergy -[facility] and Work Phone: Medications Completed/Discontinued Medications Medication Drug Class(es) Dates Sig (Normalized) Sig (Original) Aspirin (1 source) Platelet Aggregation Inhibitor, Nonsteroidal Anti-inflammatory Drug Start: 11-17-2016 ACETYL SALICYLIC ACID POWD as directed ASPIRIN [id number] Darien BAKER MULTIPLE VITAMIN (1 source) Start: 11-17-2016 DAILY MULTIPLE VITAMINS TABS MULTIPLE VITAMIN [id number] Darien BAKER ondansetron 4 mg disintegrating oral tablet (1 source) Serotonin-3 Receptor Antagonist Start: 08-08-2020 take 1 tablet by mouth four times daily as needed for nausea Ondansetron 4 MG Oral Tablet Disintegrating TAKE 1 TABLET 4 times daily PRN nausea Quantity: 10 Refills: 1 Ordered: 08-Aug-2020 Ricardo Frazier DO Start : 08-Aug-2020 Active oxybutynin chloride 5 mg oral tablet (1 source) Cholinergic Muscarinic Antagonist Ditropan 5 MG TABS TAKE 1 TABLET DAILY. Quantity: 0 Refills: 0 Ordered: 02-Oct-2021 DO Active predniSONE 10 mg oral tablet (1 source) Start: 08-08-2020 predniSONE 10 MG Oral Tablet TAKE 4 TABLETS DAILY FOR 3 DAYS,3 TABLETS DAILY FOR 3 DAYS, 2 TABLETS DAILY FOR 3 DAYS AND 1 TABLET DAILY FOR 3 DAYS, THEN STOP. Quantity: 30 Refills: 0 Ordered: 08-Aug-2020 Ricardo Frazier DO Start : 08-Aug-2020 Active venlafaxine 75 mg oral tablet (1 source) Serotonin and Norepinephrine Reuptake Inhibitor Effexor 75 MG TABS Quantity: 0 Refills: 0 Ordered: 02-Oct-2021 DO Active Problems Problem Classification Problem Date Documented Date Episodic/Chronic Abdominal pain (3 sources) Flank pain; Translations: [Abdominal pain, other specified site] Episodic Anxiety disorders (1 source) Anxiety; Translations: [Anxiety state, unspecified] Chronic Calculus of urinary tract (3 sources) History of calculus of kidney; Translations: [Personal history of urinary calculi] Episodic Essential hypertension (3 sources) Essential (primary) hypertension; Translations: [Essential (primary) hypertension] Onset: 11-04-2021 Chronic Headache; including migraine (3 sources) Headache; Translations: [Headache] Episodic Nausea and vomiting (2 sources) Nausea; Translations: [Nausea alone] Episodic Nonspecific chest pain (1 source) Atypical chest pain; Translations: [Other chest pain] Episodic Other circulatory disease (1 source) Elevated blood pressure; Translations: [Elevated blood pressure reading without diagnosis of hypertension] Episodic Other nervous system disorders (3 sources) Paresthesia of hand ; Translations: [Disturbance of skin sensation] Episodic Other screening for suspected conditions (not mental disorders or infectious disease) (1 source) Encounter for screening for cardiovascular disorders; Translations: [Encounter for screening for cardiovascular disorders] Onset: 11-04-2021 Episodic Spondylosis; intervertebral disc disorders; other back problems (2 sources) Prolapse of cervical intervertebral disc with degeneration; Translations: [Displacement of cervical intervertebral disc without myelopathy] Chronic Spondylosis; intervertebral disc disorders; other back problems (6 sources) Backache; Translations: [Lumbago] Episodic Unclassified (1 source) Encounter for check up; Translations: [Encounter for general adult medical examination without abnormal findings] Onset: 11-17-2016 11-17-2016 Results Test Name Value Interpretation Reference Range Facil ity Vital Signs Date Time Vital Sign Value Performing Clinician Faci lity 10-02-2021 15:31-0400 Body height 172.72 cm [employer] Phone: [employer] [facility] [facility] Work Phone: 10-02-2021 15:31-0400 Body mass index (BMI) [Ratio] 25.93 kg/m2 [employer] Phone: [facility] Work Phone: 10-02-2021 15:31-0400 Body surface area Derived from formula 1.91 m2 [employer] Phone: [facility] Work Phone: 10-02-2021 15:31-0400 Body weight 77.37 kg [employer] Phone: [facility] Work Phone: 10-02-2021 15:31-0400 Diastolic blood pressure 100 mm[Hg] Ricardo Hair [place] Work Phone: [facility] Work Phone: 10-02-2021 15:31-0400 Heart rate 80 /min Ricardo Frazier Work Phone: [facility] Work Phone: 10-02-2021 15:31-0400 SaO2% (BldA) [Mass fraction] 98 % Ricardo Hair [place] Work Phone: [facility] Work Phone: 10-02-2021 15:31-0400 Systolic blood pressure 156 mm[Hg] Ricardo Hair [employer] Phone: [facility] Work Phone: 08-08-2020 16:54-0400 Body height 172.72 cm Ricardo Frazier Work Phone: [facility] Work Phone: 08-08-2020 16:54-0400 Body mass index (BMI) [Ratio] 26.53 kg/m2 Ricardo Frazier [employer] Phone: [facility] Work Phone: 08-08-2020 16:54-0400 Body surface area Derived from formula 1.93 m2 Ricardo Hair [employer] Phone: [facility] Work Phone: 08-08-2020 16:54-0400 Body temperature 97.3 [degF] Ricardo Frazier Work Phone: [facility] Work Phone: 08-08-2020 16:54-0400 Body weight 79.15 kg Ricardo Hair [place] Work Phone: [facility] Work Phone: 08-08-2020 16:54-0400 Diastolic blood pressure 78 mm[Hg] Ricardo Frazier [employer] Phone: [facility] Work Phone: 08-08-2020 16:54-0400 Heart rate 87 /min Ricardo Frazier Work Phone: [facility] Work Phone: 08-08-2020 16:54-0400 SaO2% (BldA) [Mass fraction] 98 % Ricardo Frazier [employer] Phone: [facility] Work Phone: 08-08-2020 16:54-0400 Systolic blood pressure 128 mm[Hg] Ricardo Frazier [employer] Phone: [facility] Work Phone: 07-05-2020 07:40-0400 Body height 172.72 cm Ricardo Frazier [employer] Phone: [facility] Work Phone: 07-05-2020 07:40-0400 Body mass index (BMI) [Ratio] 26.38 kg/m2 Ricardo Frazier [employer] Phone: [facility] Work Phone: 07-05-2020 07:40-0400 Body surface area Derived from formula 1.92 m2 Ricardo Frazier [employer] Phone: [facility] Work Phone: 07-05-2020 07:40-0400 Body temperature 96.9 [degF] Ricardo Frazier [employer] Phone: [facility] Work Phone: 07-05-2020 07:40-0400 Body weight 78.7 kg Ricardo rFazier Work Phone: [facility] Work Phone: 07-05-2020 07:40-0400 Diastolic blood pressure 68 mm[Hg] Ricardo Frazier Work Phone: [facility] Work Phone: 07-05-2020 07:40-0400 Heart rate 66 /min Ricardo Frazier Work Phone: [facility] Work Phone: 07-05-2020 07:40-0400 SaO2% (BldA) [Mass fraction] 98 % Ricardo Frazier Work Phone: [facility] Work Phone: 07-05-2020 07:40-0400 Systolic blood pressure 118 mm[Hg] Ricardo Frazier Work Phone: [facility] Work Phone: 11-17-2016 08:12-0400 BMI (Body Mass Index) 22.74 kg/m2 Darien BAKER [facility] Work Phone: 11-17-2016 08:12-0400 BP Diastolic 74 mm[Hg] Dari[place] BAKER [facility] Work Phone: 11-17-2016 08:12-0400 BP Systolic 116 mm[Hg] [place] BAKER [facility] Work Phone: 11-17-2016 08:12-0400 Height 175.[address] [facility] Work Phone: 11-17-2016 08:12-0400 Weight 69.[address] [facility] Work Phone: Encounters Encounter Date Encounter Type Care Provider Facility Start: 11-04-[address] RICARDO FRAZIER Faci lity:[id number] Start: 10-02-2021 Office outpatient vi sit 15 minutes Ricardo Hair [place] Work Phone: [facility] Work Phone: Start: 08-08-2020 Office outpatient vi sit 15 minutes Ricardo Hair [place] Work Phone: [facility] Work Phone: Start: 07-19-2020 AUDIT Ricardo terrazas Work Phone: [facility] Work Phone: Start: 11-17-2017 Patient encounter Facil ity:[id number] Procedures Date Procedure Procedure Detail Performing Clinician Appendectomy Ricardo Montenegro l Work Phone: Cholecystectomy Ricardo Murrieta oyal Work Phone: Hysterectomy Ricardodavian Tilleyya l Work Phone: Procedure on neck Ricardo Hair [place] Work Phone: Plan of Treatment Date Care Activity Detail Author [facility] Work Phone: Immunizations Immunization Date Immunization Notes Care Provider Piyush leyva 01-10-2021 influenza, seasonal, injectable, preservative free Ricardo Hair [place] Work Phone: [facility] Work Phone: 12-06-2020 Pfizer-BioNTech COVI D-19 Vacc 30 MCG/0.3ML Intramuscular Suspension Ricardo S [place] Work Phone: [facility] Work Phone: 11-15-2020 Pfizer-BioNTech COVI D-19 Vacc 30 MCG/0.3ML Intramuscular Suspension Ricardo S [place] Work Phone: [facility] Work Phone: 05-07-2020 tetanus toxoid, redu domingo diphtheria toxoid, and acellular pertussis vaccine, adsorbed Ricardo S [place] Work Phone: [facility] Work Phone: 01-15-2020 influenza, seasonal, injectable, preservative free Ricardo Frazier Work Phone: [facility] Work Phone: Payers Date Payer Category Payer Unknown [id number] [facility] ([place], [place]) Unknown [id number] Social History Date Type Detail Facility No alcohol use No alcohol use [facility] Work Phone: Summary Purpose Family History No Family History Records FoundUnknown Family Member Name Dates Details No pertinent family history: Mother, Father(V49.89, Z78.9) Status:Active Unknown Family Member Name Dates Details No pertinent family history: Mother, Father(V49.89, Z78.9) Status:Active Unknown Family Member Name Dates Details No pertinent family history: Mother, Father(V49.89, Z78.9) Status:Active Advance Directives No Advanced Directives Records FoundNo Advanced Directives Records FoundNo Advanced Directives Records FoundNo Advanced Directives Records Found Chief Complaint * Pt is here today for a follow up on her MRI C/O right arm pain that is causing nausea. This note was generated by using [employer] software. It may contain errors in wording, punctuate, or spelling. * She is here today for follow-up and reports feeling absolutely miserable. She has been having continued pain in her right upper extremity especially with certain movements. We did review the results of her MRI completed recently and the radiologist reports that she has a posterior disc herniation at the C5-C6 level resulting in mild spinal canal stenosis. She states that that surprises her because her symptoms at times are very severe. We discussed trying some oral prednisone and we are providing Zofran for nausea. We talked about a narcotic pain reliever but she states it will simply make her sick. She states she would like to see a specialist at the [facility] and we can help with a referral. I told her we could also have her see somebody in the system and we will see how long ittakes to get in. She will call us if she has any sudden worsening of her condition and I told her to take it easy as far as activities with lifting or tugging or stretching. * Pt is here today with the C/O heavy feeling in her right arm and chest area, throat feels as if it is closing BP has been higher than normal. This note was generated by using [employer] software. It may contain errors in wording, punctuate, or spelling. * She is here today for evaluation of chest discomfort and some heaviness in the right arm and chest region. She states she also feels like her throat is closing off. She states that in the last week she has been checking her blood pressure and its been higher than desirable. She states today while at the [employer] she started feeling intense symptoms that brings her here today. When she arrived her blood pressure was higher than usual and we did perform an EKG which showed a normal sinus rhythm and no significant ST-T wave changes. While she was waiting she did call her and she has decided to go to the emergency room just to get checked out. We did conduct a review of systems. She states she had a similar episode about a year ago while she was at work and a colleague did an EKG and checked her blood pressure. They indicated that everything looked okay so she was able to work through the shift and she started feeling better. She states she has not had any unusual stress recently but she does admit to feeling anxious. We discussed going to the emergency room for an evaluationand I told her they might do a D-dimer and just make sure that nothing unusual is happening. We diddiscuss how anxiety and a panic attack could cause the symptoms she is experiencing now. We also discussed how sometimes the anxiety can elevate the blood pressure and then the syndrome snowballs. She states she understands and again I agree that going to the emergency room for an acute evaluation is not a bad idea but once she is assessed and leaves the hospital we would like to see her in follow-up shortly thereafter. Additional Source Comments INFORMATION SOURCE (unrecogn ized section and content) DATE CREATED AUTHOR AUTHOR'S ORGANIZ ATION 02/07/2019 [facility] DATE CREATED AUTHOR AUTHOR'S ORGANIZ ATION 11/19/2021 [facility] DATE CREATED AUTHOR AUTHOR'S ORGANIZ ATION 11/26/2021 [facility] FOR RECORDS PERTAINING TO PATIENTS WHO ARE OR HAVE BEEN ENROLLED IN A CHEMICAL DEPENDENCY/SUBSTANCEABUSE PROGRAM, SOME INFORMATION MAY BE OMITTED. This clinical summary was aggregated from multiple sources. Caution should be exercised in using it in the provision of clinical care. This summary normalizes information from multiple sources, and as a consequence, information in this document may materially change the coding, format and clinical context of patient data. In addition, data may be omitted in some cases. CLINICAL DECISIONS SHOULD BE BASED ON THE PRIMARY CLINICAL RECORDS. [facility]. provides no warranty or guarantee of the accuracy or completeness of information in this document.
== END | disposition home or self-care (01) ==
LOC: OPBI 08:47
PROVIDERS: PCP Family Medicine; Referring Provider Nurse Practitioner Family; Visit Provider Nurse Practitioner Family
DX: Z12.31 Encounter for screening mammogram for malignant neoplasm of breast (principal)
CPT/HCPCS: 77063; 77067

== ENCOUNTER → 2023-06-28 | Outpatient (CLI) | payer OTHER, SELFPAY ==
--- NOTE | 2023-06-28 12:43 | RAD_ITS ---
STUDY: X-RAY - LEFT KNEE REASON FOR EXAM: Female, 53 years old. Pain following injury. TECHNIQUE: 3 view(s) of the knee. COMPARISON: None. FINDINGS: Normal visualized distal femur. Normal visualized proximal tibia and fibula. Normal proximal tibiofibular articulation. Normal medial femorotibial compartment. Normal lateral femorotibial compartment. Normal patellofemoral articulation. The soft tissue structures are unremarkable. RAD/Knee 3 Views IMPRESSION: Normal x-ray examination of the knee. Electronically Signed: Walkre Mar MD at 13:21 EDT ,
--- NOTE | 2023-06-28 12:43 | RAD_ITS ---
STUDY: X-RAY - LUMBAR SPINE REASON FOR EXAM: Female, 53 years old. Left-sided pain following injury. TECHNIQUE: 2 view(s) of the lumbar spine were obtained. COMPARISON: None FINDINGS: Normal lumbar lordosis. There is no substantial scoliosis. There is a normal alignment of the vertebrae. Normal vertebral bodies and endplates. Mild degree of disc space narrowing at the T12-L1 level and L5-S1 level. The soft tissue structures are unremarkable. RAD/Lumbar Spine 2 or 3 Views IMPRESSION: Degenerative changes of the spine, as detailed above. Electronically Signed: Walker Mar MD at 13:24 EDT ,
--- NOTE | 2023-06-28 12:43 | RAD_ITS ---
STUDY: X-RAY - LEFT ANKLE REASON FOR EXAM: Female, 53 years old. Pain following injury. TECHNIQUE: 3 view(s) of the ankle. COMPARISON: None. FINDINGS: Normal visualized distal tibia and fibula. Normal medial and lateral malleoli. Normal tibiotalar articulation and ankle mortise. Normal visualized talus and calcaneus. The visualized subtalar, talonavicular, calcaneocuboid and tarsal articulations are normal. The soft tissue structures are unremarkable. RAD/Ankle min 3 Views IMPRESSION: Normal x-ray examination of the ankle. Electronically Signed: Walker Mar MD at 13:46 EDT ,
--- NOTE | 2023-06-28 12:43 | RAD_ITS ---
STUDY: X-RAY - PELVIS AND LEFT HIP REASON FOR EXAM: Female, 53 years old. Trauma TECHNIQUE: 3 views of the pelvis and hip. COMPARISON: None. FINDINGS: There is a non-specific bowel gas pattern. There are multiple calcified phleboliths. Normal bilateral iliac wings, sacroiliac joints and visualized sacrum. Normal bilateral superior and inferior pubic rami. There are degenerative changes of the pubic symphysis with articular narrowing and sclerosis. Normal bilateral ischial tuberosities. Normal visualized femoral head. Normal acetabulum. Normal hip joint. Acetabular spur of the right acetabulum. RAD/HIP, UNI W/ Pelvis 2-3 Views IMPRESSION: No acute fracture is seen. Electronically Signed: Walker Mar MD at 13:23 EDT ,
== END | disposition home or self-care (01) ==
LOC: MTRAD 12:42
PROVIDERS: PCP Family Medicine; Referring Provider Physician Assistant; Visit Provider Physician Assistant
DX: T14.90XA Injury, unspecified, initial encounter (principal)
CPT/HCPCS: 72100; 73502; 73562; 73610

== ENCOUNTER 2023-09-03 08:14 | Day surgery (SDC) | payer OTHER, SELFPAY ==
[2023-09-01 17:26] LABS: Absolute Lymphocyte Count 1.94 X10^3/uL (0.83-4.51); Absolute Neutrophil Count 4.1 X10^3/uL (2.0-7.7); Basophil# 0.04 X10^3/uL; Basophil% 0.6 % (0-1); Eosinophils% 1.5 % (0-5); Hematocrit 39.4 % (37-47); Hemoglobin 13.3 g/dL (12.0-15.0); Lymphocyte # 1.94 X10^3/ul (0.83-4.51); Lymphocyte % 29.1 % (19-41); Mean Corp Hgb Conc 33.8 g/dL (32-36); Mean Corpuscular Hgb 28.1 pg (27.0-32.0); Mean Corpuscular Volume 83.3 fL (81-99); Mean Platelet Vol. 11.2 fl (6.2-12.0); Monocyte# 0.42 X10^3/uL; Monocyte% 6.3 % (0-10); NRBC Flagged by Analyzer 0 % (0-5); Neutrophil # 4.14 X10^3/uL (2.7-7.7); Neutrophil % 62.2 % (47-70); Platelet Count 248 K/mm3 (150-450); RBC Distribution Width CV 12.7 % (11.6-14.6); RBC Distribution Width SD 38.3 fl (35.1-43.9); Red Blood Count 4.73 M/mm3 (4.2-5.4); White Blood Count 6.7 K/mm3 (4.4-11.0)
[2023-09-01 17:44] LABS: ALB/GLOB Ratio 1.2 RATIO (0.9-2.4); AST(SGOT) 22 U/L (15-37); Alanine Aminotransfer ALT/SGPT 36 U/L (13-56); Albumin, Serum 3.9 g/dL (3.2-5.0); Alkaline Phosphatase 117 U/L (45-117); Anion Gap 6 (5-15); BUN 22 mg/dL (7-18); BUN/Creat Ratio 18.6 RATIO (10-20); Calcium,Total 9.5 mg/dL (8.5-10.1); Chloride 107 mmol/L (98-107); Creatinine, Serum 1.18 mg/dL (0.55-1.02); EST Glomerular Filtration Rate 51 mL/min (>60); Est Glom Filt Rate - Afr Amer 61 mL/min (>60); Globulin 3.3 g/dL (2.2-4.2); Glucose 99 mg/dL (74-106); Potassium 3.8 mmol/L (3.5-5.1); Protein, Total 7.2 g/dL (6.4-8.2); Sodium Level 141 mmol/L (136-145)
[2023-09-03] VITALS (10 sets, daily range): BP systolic 82–154; BP diastolic 60–81; PULSE 64–77; RESP 16–18; TEMP 36.4–36.8; O2SAT 93–100; BMI 27.8
--- NOTE | 2023-09-03 08:33 | PCM.PRE.AN2 ---
ASA Classification* ASA Classification ASA Classification: 2 Assessment & Plan Anesthesia* Anesthesia Assessment Anesthesia Assessment: Discussed sedation and/or anesthesia options, risks, benefits, and alternatives with patient/parents/legal guardian/POA. Questions invited. The patient/parents/legal guardian/POA seems to understand and agrees to proceed with anesthesia plan. Reviewed the physical assessment, medical history, allergy history and patient home medications list prior to surgery/procedure/anesthetic and documented any changes. Performed airway and anesthesia risk assessments. Anesthesia Type Anesthesia Type: General (see written pre anesthesia record for full assessment) Anesthesia Focused Assessment* Airway Assessment Mouth opens: >3 cm Mallampati Score: II Focused Labs Anesthesia Preop lab: CBC WBC 6.7 K/mm3 (4.4-11.0) 09/01/23 16:58 RBC 4.73 M/mm3 (4.2-5.4) 09/01/23 16:58 Hgb 13.3 g/dL (12.0-15.0) 09/01/23 16:58 Hct 39.4 % (37-47) 09/01/23 16:58 Plt Count 248 K/mm3 (150-450) 09/01/23 16:58 CHEMISTRY Potassium 3.8 mmol/L (3.5-5.1) 09/01/23 16:58 Sodium 141 mmol/L (136-145) 09/01/23 16:58 Magnesium 2.4 mg/dL (1.6-2.6) 03/24/21 10:16 Phosphorus 3.4 mg/dL (2.5-4.9) 11/24/22 09:26 BUN 22 mg/dL (7-18) H 09/01/23 16:58 Creatinine 1.18 mg/dL (0.55-1.02) H 09/01/23 16:58 Glucose 99 mg/dL (74-106) 09/01/23 16:58 POC Glucose 103 mg/dL (70-110) 03/28/21 11:15 TSH 0.84 uIU/mL (0.358-3.74) 12/17/22 13:35 COAG Urine Test Negative Negative 03/28/21 06:10 Pre-Assessment Diagnosis/Proposed Procedure Planned Operative Procedure(s): foot surgery left Anesthesia History 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 When Was Last Pacemaker Check QUESTION #4 FULL TEXT: You/Your Family Experience fever (hyperthermia) with Anesthesia Last Oral Intake Last Oral intake: Last Oral Intake NPO since Meds taken in AM with sips of water? Meds patient instructed to take am of surgery PONV PONV - senior software developer: PONV - senior software developer Female Yes 09/01/23 12:05 HX of Motion Sickness No 09/01/23 12:05 HX of N/V After Surgery No 09/01/23 12:05 Non-Smoker Yes 09/01/23 12:05 Duration of Surgery greater Yes 09/01/23 12:05 than 60 minutes Number of Risk Factors 3 09/01/23 12:05 PONV Score Moderate Risk 09/01/23 12:05 Height & Weight Height & Weight: Anesthesia: Height & Weight Height 5 ft 8 in 09/02/23 09:12 Weight: 77.111 kg 09/02/23 09:12 Respiratory Assessment Respiratory Assessment - senior software developer: Respiratory Tract Infection Hx - senior software developer Hx Respiratory Tract Infection No 09/01/23 12:05 STOP Sleep Apnea STOP Sleep Apnea - senior software developer: STOP Sleep Apnea - senior software developer Hx Hypertension Yes: PRN MED HCTZ 09/01/23 12:05 Hx Sleep Apnea No 09/01/23 12:05 CPAP No 09/01/23 12:05 BIPAP No 09/01/23 12:05 Do you snore loudly (louder Yes 09/01/23 12:05 than talking or can be heard Do you often feel tired/ Yes 09/01/23 12:05 fatigued/ sleepy during daytime? Has anyone observed you stop No 09/01/23 12:05 breathing during sleep? STOP Results Positive 09/01/23 12:05 QUESTION #5 FULL TEXT : Do you snore loudly (louder than talking or can be heard through closed doors)? 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 Specify any problems Hx of Preganancy in last 3 No 09/01/23 12:05 Months Nurse Filling Out Transfusion DSCHRIBER 09/01/23 12:05 & Questions: Date: 09/01/23 09/01/23 12:05 Time: 12:07 09/01/23 12:05 Patient unable to answer at this time (ie. confused, unrespo /Reproduction History /Reproductive History - senior software developer: /Reproductive Hx- senior software developer Hx Now No 09/01/23 12:05 Gestational Age (in weeks): EDC: Hx Hx Para Hx Section SAB No 09/01/23 12:05 Active Medications Active Medications: Current Medications Generic Name Dose Route Start Last Admin Trade Name Freq PRN Reason Stop Dose Admin Clindamycin Phosphate 900 mg in 50 mls @ 75 mls/hr 09/03/23 10:00 Cleocin IV 09/03/23 10:39 PREOP ONE Lactated Ringer's 1,000 mls @ 15 mls/hr 09/03/23 08:30 IV .Q48H ABDI PFSH Medical History Back pain Difficulty swallowing Asthma History of pain when walking History of echocardiogram History of stress test History of irregular heartbeat Cardiology follow-up encounter Left ankle sprain Strain of left knee Strain of left hip Lumbar strain Contact with and (suspected) exposure to other viral communicable diseases Acute sinusitis Headache Essential hypertension Nephrolithiasis Acute maxillary sinusitis, unspecified Wears contact lenses Arthritis Migraine headache Non-smoker Shortness of breath on exertion Leg cramps Acute cervical myofascial strain Vertigo Irritant dermatitis Nausea ASCUS of cervix with negative high risk HPV Stress incontinence Stomach ulcer Home Medications ?Medication ?Instructions ?Recorded ?Last Taken ?Type cholecalciferol (vitamin D3) 25 25 mcg PO QHS 11/20/20 03/27/21 History mcg (1,000 unit) capsule vitamin E mixed 400 unit capsule 400 unit PO MOWEFR 11/20/20 03/27/21 History ondansetron 4 mg disintegrating 4 mg PO Q6H PRN nausea and 04/08/23 Unknown Rx tablet vomiting #30 tabs ibuprofen 600 mg tablet 600 mg PO TID PRN pain #30 tabs 06/28/23 Unknown Rx albuterol sulfate 90 mcg/actuation 2 inh inhalation Q8H PRN PRN 09/01/23 Unknown History aerosol inhaler (Ventolin HFA) shortness of breath or wheezing amlodipine 5 mg tablet 5 mg PO DAILY PRN PRN BP 09/01/23 Unknown History hydrochlorothiazide 25 mg tablet 25 mg PO DAILY PRN PRN BP 09/01/23 Unknown History Allergy/AdvReac Type Severity Reaction Status Date / Time amoxicillin (Amoxicillin) Allergy Mild Rash Verified 09/01/23 12:03 clonidine Allergy Nausea/Vom/ Verified 09/01/23 12:03 Diarrhea erythromycin base Allergy Rash Verified 09/01/23 12:03 (Erythromycin Base) Latex, Natural Rubber Allergy Rash Verified 09/01/23 12:03 Opioids - Morphine Analogues Allergy Nausea/Vom/ Verified 09/01/23 12:03 (narcotics) Diarrhea Sulfa (Sulfonamide Allergy Unknown Verified 09/01/23 12:03 Antibiotics) sulfamethoxazole (From Allergy Other Verified 09/01/23 12:03 Bactrim) trimethoprim (From Bactrim) Allergy Other Verified 09/01/23 12:03 gabapentin AdvReac Intermediate Rash Verified 09/01/23 12:03 doxycycline AdvReac Nausea Verified 09/01/23 12:03 hydromorphone (From Dilaudid) AdvReac Vomiting Verified 09/01/23 12:03 tetracycline AdvReac Nausea/Vom/ Verified 09/01/23 12:03 Diarrhea Family History Father Cancer Brother CVA (cerebral vascular accident) Mental and behavioral problem Mother Colon cancer Surgical History Status post bilateral salpingectomy History of total vaginal hysterectomy (TVH) Hx of spinal surgery Anal fissure History of cholecystectomy History of appendectomy Social History number of children: 3 current occupational status: employed current occupation: [employer] L[employer]D Smoking Status: Never smoker alcohol intake: never substance use type: does not use caffeine: Yes Type: coffee Number of servings: 4 seatbelt use: always do you feel safe at home: Yes 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
[2023-09-03] MEDS: Lactated Ringers 1,000 ML 15 ML IV ×2 (08:47→13:16)
--- NOTE | 2023-09-03 09:00 | RAD_ITS ---
STUDY: X-RAY LEFT FOOT, THIRD TOE REASON FOR EXAM: Female, 53 years old. PAIN TECHNIQUE: 3 view(s) of the toe were obtained. COMPARISON: None. FINDINGS: 0:10 minutes of fluoroscopy of the third digit was utilized in operating room during third and fourth proximal interphalangeal joint arthrodesis and fifth metatarsal bunionectomy osteotomy and screw fixation and 40 images are significant for interpretation. . RAD/Toe(s) Min 2 Views IMPRESSION: Fluoroscopy during foot surgery. Electronically Signed: Gavin Cortez MD at 14:11 EDT ,
--- NOTE | 2023-09-03 10:00 | BON_PTH ---
PATIENT: ANNA MARIE MILLER LOC: [facility] [place] U#:[id number] AGE/SX: 53/F ROOM: RE09/03/[address]: Dr. Mark Anthony Jansen DPM : 1970 BED: DIS: 09/03/2023 SPEC #: [id number] RECD: 09/03/23 13:53 STATUS: RUFUS REQ #: [id number] DAIVD: 09/03/23 10:[address]: Mark Anthony Jansen DEPT: SURGICAL PATHOLOGY RECD BY: Marisol Gresham ENTERED: 09/03/23 14:03 SP TYPE: Bone OTHR DR: Kelvin Gerard MD Tissues: Toe, NOS Procedures: Decalcification bone/plaque Surgery Specimen Level IV HEADER OPERATION: Proximal interphalangeal joint arthrodesis of the left third toe PRE-OP DIAGNOSIS: Left foot hammer toes correction, left foot trailer's bunion TISSUE SUBMITTED: Bone left toes 3-5 MICROSCOPIC DIAGNOSIS Bone left toes 3-5, excision: Pieces of bone with reactive changes, clinically hammer toe and bunion. / 09/08/2023 MICROSCOPIC DESCRIPTION Slides are reviewed. GROSS DESCRIPTION Received in fixative is one container labeled with the patient's name and designated Bone left toe 3-5. The specimen consists of are three pieces of bone measuring in aggregate 2.2 x 1.2 x 0.6cm. The entire specimen is submitted in two cassettes after decalcification. / 09/03/2023 TC:5 CPT:59513,66667
[2023-09-03] MEDS: Clindamycin 900 MG/50 ML BAG 75 MG IV (10:52)
[2023-09-03] MEDS: BACITRACIN/POLYMYXIN B 15 GM Tube 1 APPLIC (11:10)
[2023-09-03] MEDS: Bupivacaine Mpf 0.5% 30 ML VIAL (11:37)
--- NOTE | 2023-09-03 12:43 | OP.PCM_ITS ---
Problems Associated Problem List Diagnoses (1) Other hammer toe(s) (acquired), left foot: (2) Tailor's bunion of left foot: (3) Pain in left foot: Report of Operation Date of Procedure: 09/03/23 Pre-Operative Diagnosis: 1) hammertoe toe digit 3,4, left foot 2) adductovarus 5th toe 3) tailor's bunion, left foot 4) chronic ingrowing toenail lateral nail border bilateral hallux Post-Operative Diagnosis: same Surgery/Procedure Performed:: 1) hammertoe repair left 3rd toe via PIPJ arthrodesis 2) hammertoe repair left 4th toe via PIPJ arthrodesis 3) derotational arthroplasty left 5th toe 4) tailor's bunionectomy via distal chevron osteotomy 5) lateral nail border matrixectomy, right hallux 6) lateral nail border matrixectomy, left hallux Surgeon: Mark Anthony Jansen processing technologist: None (izabella ku DPM PGYIII) Type of Anesthesia: General Special Medications: distal sciatic block per anesthesia Specimen's removed: proximal phalangeal heads toes 3,4,5 Drains: none Estimated Blood Loss (mL): minimal Description of Procedure: Patient brought back the operating placed complete supine position on operating room table. Patient induced under general anesthesia. All osseous prominences offloaded prevent any compression neuropraxia's. Well-padded left ankle tourniquet was applied. Bilateral hallux lateral nail matrixectomy: Bilateral hallux prepped with Betadine paint. Digital blocks performed bilatera lly using combination of 6 cc half percent Marcaine plain using standard technique. Using a nail kit the proximal lateral and inferior portions of the nail plate were freed from the nailbed and nail folds. This was longitudinally cut using nail cutting forceps.'s were removed using hemostats. Site was examined for any residual spicules or ingrown nail. Any additional ingrowing or interpositional tissue was removed. 3 applications of phenol for 30 seconds were applied to the lateral nail matrix to prevent nail regrowth to bilateral lateral matrixectomy sites. Site was flushed with copious amounts of alcohol. Sites dressed with bacitracin Adaptic 4 x 4's and Coban. Left lower extremity was prepped draped using typical aseptic fashion. Left lower extremity was elevated exsanguinated tourniquet was inflated to 250 mmHg hammertoe repair left 3rd toe via PIPJ arthrodesis: Linear incision was made 15 blade through epidermis dermis into subcutaneous tissue using 15 blade just proximal to the metatarsal phalangeal joint to just distal to the proximal interphalangeal joint. Any bleeders identified cauterized. Blunt dissection down taken down to the extensor tendon deep fascia. Transverse tenotomy performed at the extensor tendon at the level of the proximal interphalangeal joint medial and lateral ligaments were released using destructive technique with a 15 blade. The extensor tendon was gently atraumatically dissected off the proximal phalanx. A dorsal medial lateral joint release was performed at the proximal interphalangeal joint with a 15 blade. Proximal phalangeal head was removed bone cutting forceps. Middle phalangeal base was removed using a sagittal saw. A [employer] phalanx arthrodesis PIPJ implant was applied using a manufactures guidelines with the toe held in a rectus alignment. Adequate reduction of hammertoe noted with intraoperative examination and kelekian push-up test as well as fluoroscopic imaging. Site was flushed with copious amounts normal sterile saline extensor tendon was healed with 4 oh over and over Vicryl. Skin closure performed with simple interrupted 4-0 nylon. hammertoe repair left 4th toe via PIPJ arthrodesis: Linear incision was made 15 blade through epidermis dermis into subcutaneous tissue using 15 blade just proximal to the metatarsal phalangeal joint to just distal to the proximal interphalangeal joint. Any bleeders identified cauterized. Blunt dissection down taken down to the extensor tendon deep fascia. Transverse tenotomy performed at the extensor tendon at the level of the proximal interphalangeal joint medial and lateral ligaments were released using destructive technique with a 15 blade. The extensor tendon was gently atraumatically dissected off the proximal phalanx. A dorsal medial lateral joint release was performed at the proximal interphalangeal joint with a 15 blade. Proximal phalangeal head was removed bone cutting forceps. Middle phalangeal base was removed using a sagittal saw. A [employer] phalanx arthrodesis PIPJ implant was applied using a manufactures guidelines with the toe held in a rectus alignment. Adequate reduction of hammertoe noted with intraoperative examination and kelekian push-up test as well as fluoroscopic imaging. Site was flushed with copious amounts normal sterile saline extensor tendon was healed with 4 oh over and over Vicryl. Skin closure performed with simple interrupted 4-0 nylon. Derotational arthroplasty left fifth toe PIPJ: An elliptical incision was made just dorsal lateral to the proximal interphalangeal joint running from distal medial to proximal lateral and oblique fashion. This was made with a 15 blade full-thickness through epidermis dermis into subcutaneous tissue was excised. This to allow for derotation of the fifth toe in the frontal plane. Extensor tenotomy performed with a 15 blade at the proximal interphalangeal joint medial lateral ligaments released with a 15 blade. Proximal phalangeal head removed with bone cutting forceps. Site was flushed with copious amounts of normal sterile saline and incision was closed with simple interrupted 4-0 nylon. Adequate reduction of fifth toe deformity n oted. Tailor's bunionectomy via distal chevron osteotomy left fifth metatarsal: Linear incision was made just lateral to the extensor digitorum longus tendon of the fifth toe. This made full-thickness through epidermis dermis into subcutaneous tissue blunt dissection taken down the level deep fascia periosteum and joint capsule at the fifth metatarsal phalangeal joint. Any bleeders identified cauterized. Neurovascular structures were protected with blunt retraction. Using a small K wire for guidance this was placed transversely across the fifth metatarsal head from slightly proximal to distal to allow for lengthening of the fifth metatarsal as well as parallel in the axial plane to prevent any plantarflexion or dorsiflexion of the fifth metatarsal head. Distal chevron cut was made with a sagittal saw. The fifth metatarsal head was mobilized and traversed medially to reduce intermetatarsal angle 4, 5. This was confirmed with fluoroscopic imaging. A 3 oh headless cannulated screw was applied across the osteotomy site from dorsal proximal and distal plantar. This was inserted using manufactures guidelines. Adequate reduction of the deformity was noted. Additional lateral eminence was removed as well as the lateral shelf using a sagittal saw. The slight bone Along the dorsal aspect of the osteotomy was packed with V toss demineralized bone matrix. [facility] NCR [employer] implant. Site was flushed with copious amounts normal sterile saline. Incision was closed with running continuous 4-0 Vicryl. Skin closure performed with horizontal mattress 4-0 nylon. Tourniquet was let down prior to all incisional closures. Total tourniquet time was noted to be 65 minutes. All sites were dressed with bacitracin Adaptic 4 x 4's Kerlix and Dima bandage. Patient was transferred to the PACU vital signs stable vascular status intact all digits for further monitoring prior to discharge patient tolerated procedure and anesthesia well in apparent satisfactory condition. No complications Adequate excision of lateral ingrowing toenails as well as reduction of hammertoes 3 4 and 5 and tailor's bunion
--- NOTE | 2023-09-03 13:04 | PCM.POST.ANE ---
Anesthesia: Postop Eval I Current Vital Signs Temperature: 98.1 F Pulse Rate: 75 Blood Pressure: 97/67 Respiratory Rate: 18 Pulse Ox: 94 Assessment Airway patent: Yes Spontaneous unlabored respirations: Yes nausea: No Vomiting: No Anesthesia Complication: No Fluid Hydration Crystalloid volume administer (ml): 1,500 Total IV fluid infused: 1,500 Progress Note Anesthesia document: Postop Eval 1 completed: Yes
--- NOTE | 2023-09-03 13:15 | POSTOPAN2_ITS ---
Anesthesia Postop Eval I Sum Postop Eval Completion status Anesthesia document: Postop Eval 1 completed: Yes Anesthesia Postop Eval I Summary Anesthesia Postop Eval I Summary: Anesthesia Postop Eval I: Assessment Summary Airway patent Yes 09/03/23 13:04 [employer] [email or web address] Spontaneous unlabored Yes 09/03/23 13:04 [employer] [email or web address] respirations Mental status nausea No 09/03/23 13:04 [employer] [email or web address] Vomiting No 09/03/23 13:04 [employer] [email or web address] Anesthesia Postop Eval I: Fluid Summary Crystalloid volume administer 1,500 09/03/23 13:04 [employer] [email or web address] (ml) Colloids volume administered ( ml) Blood Product volume administered (ml) Total IV fluid infused 1,500 09/03/23 13:04 [employer] [email or web address] Anesthesia Postop Eval I: Summary Notes Anesthesia Complication No 09/03/23 13:04 [employer] [email or web address] Anesthesia Complication Comment: Post-operative progress note Anesthesia: Postop Eval II Evaluation Mental status: Awake Pain Level: 0 nausea: No Vomiting: No
--- NOTE | 2023-09-03 13:15 | PCM.POSTANE2 ---
Anesthesia Postop Eval I Sum Postop Eval Completion status Anesthesia document: Postop Eval 1 completed: Yes Anesthesia Postop Eval I Summary Anesthesia Postop Eval I Summary: Anesthesia Postop Eval I: Assessment Summary Airway patent Yes 09/03/23 13:04 AD [email or web address] Spontaneous unlabored Yes 09/03/23 13:04 AD [email or web address] respirations Mental status nausea No 09/03/23 13:04 AD [email or web address] Vomiting No 09/03/23 13:04 AD [email or web address] Anesthesia Postop Eval I: Fluid Summary Crystalloid volume administer 1,500 09/03/23 13:04 AD [email or web address] (ml) Colloids volume administered ( ml) Blood Product volume administered (ml) Total IV fluid infused 1,500 09/03/23 13:04 AD [email or web address] Anesthesia Postop Eval I: Summary Notes Anesthesia Complication No 09/03/23 13:04 AD [email or web address] Anesthesia Complication Comment: Post-operative progress note Anesthesia: Postop Eval II Evaluation Mental status: Awake Pain Level: 0 nausea: No Vomiting: No
== END 2023-09-03 15:12 | disposition home or self-care (01) ==
LOC: SDC 08:15 → AC 08:15
PROVIDERS: PCP Family Medicine; Referring Provider Podiatrist; Visit Provider Podiatrist
PROC: (CPT 28285; principal; 2023-09-03 09:45)
DX: M20.42 Other hammer toe(s) (acquired), left foot (principal); M21.612 Bunion of left foot; L60.0 Ingrowing nail; I10 Essential (primary) hypertension; J45.20 Mild intermittent asthma, uncomplicated; M50.20 Other cervical disc displacement, unspecified cervical region; Z79.51 Long term (current) use of inhaled steroids; Z79.899 Other long term (current) drug therapy
CPT/HCPCS: 28285 ×3; 28296; 11750; 64445; 01480; 36415; 73660; 76000; 80053; 85025; 88305; 88311; C1713; J7120; J2405

== ENCOUNTER 2023-10-01 05:59 | Day surgery (SDC) | payer OTHER, SELFPAY ==
[2023-10-01] VITALS (12 sets, daily range): BP systolic 120–135; BP diastolic 74–87; PULSE 60–95; RESP 16; TEMP 36.1–36.8; O2SAT 95–100; BMI 27.0
[2023-10-01] MEDS: Lactated Ringers 1,000 ML 15 ML IV (06:36)
--- NOTE | 2023-10-01 07:05 | PCM.PRE.AN2 ---
ASA Classification* ASA Classification ASA Classification: 2 Assessment & Plan Anesthesia* Anesthesia Assessment Anesthesia Assessment: Discussed sedation and/or anesthesia options, risks, benefits, and alternatives with patient/parents/legal guardian/POA. Questions invited. The patient/parents/legal guardian/POA seems to understand and agrees to proceed with anesthesia plan. Reviewed the physical assessment, medical history, allergy history and patient home medications list prior to surgery/procedure/anesthetic and documented any changes. Performed airway and anesthesia risk assessments. Anesthesia Type Anesthesia Type: General (see written pre anesthesia record for full assessment) Anesthesia Focused Assessment* Temperature: 98.2 F Pulse Rate: 60 Blood Pressure: 126/74 Respiratory Rate: 16 Pulse Ox: 97 Airway Assessment Mouth opens: >3 cm Mallampati Score: II Focused Labs Anesthesia Preop lab: CBC WBC 6.7 K/mm3 (4.4-11.0) 09/01/23 16:58 RBC 4.73 M/mm3 (4.2-5.4) 09/01/23 16:58 Hgb 13.3 g/dL (12.0-15.0) 09/01/23 16:58 Hct 39.4 % (37-47) 09/01/23 16:58 Plt Count 248 K/mm3 (150-450) 09/01/23 16:58 CHEMISTRY Potassium 3.8 mmol/L (3.5-5.1) 09/01/23 16:58 Sodium 141 mmol/L (136-145) 09/01/23 16:58 Magnesium 2.4 mg/dL (1.6-2.6) 03/24/21 10:16 Phosphorus 3.4 mg/dL (2.5-4.9) 11/24/22 09:26 BUN 22 mg/dL (7-18) H 09/01/23 16:58 Creatinine 1.18 mg/dL (0.55-1.02) H 09/01/23 16:58 Glucose 99 mg/dL (74-106) 09/01/23 16:58 POC Glucose 103 mg/dL (70-110) 03/28/21 11:15 TSH 0.84 uIU/mL (0.358-3.74) 12/17/22 13:35 COAG Urine Test Negative Negative 03/28/21 06:10 Pre-Assessment Diagnosis/Proposed Procedure Planned Operative Procedure(s): HAMMER TOE CORRECTION OF RIGHT SECOND THIRD FOURTH AND FIFTH DIGITS WITH TAILOR'S CORRECTION AND FIRST METATARSAL-PHALANGEAL JOINT CHILECTOMY Anesthesia History Anesthesia History - cloth mercerizer back tender: Anesthesia History - cloth mercerizer back tender Hx Hospitalization No 09/27/23 10:23 Any Problems With Anesthesia Yes: SLOW TO AWAKEN/PONV/ 09/27/23 10:23 STATES NO PROBLEMS FOR SURGERY Cholinesterase deficiency No 09/27/23 10:23 You/Your Family Experience No 09/27/23 10:23 fever (hyperthermia) with Relationship Recent Exposure to Contagious No 10/01/23 06:30 Disease Does patient have nerve No 09/27/23 10:23 stimulator Patient instructed to have device shut off --Does patient have Pacemaker No 10/01/23 06:30 or ICD? When Was Last Pacemaker Check QUESTION #4 FULL TEXT: You/Your Family Experience fever (hyperthermia) with Anesthesia Last Oral Intake Last Oral intake: Last Oral Intake NPO since 22:00 10/01/23 06:30 Meds taken in AM with sips of water? Meds patient instructed to take am of surgery PONV PONV - cloth mercerizer back tender: PONV - cloth mercerizer back tender Female Yes 09/27/23 10:23 HX of Motion Sickness No 09/27/23 10:23 HX of N/V After Surgery Yes 09/27/23 10:23 Non-Smoker Yes 09/27/23 10:23 Duration of Surgery greater Yes 09/27/23 10:23 than 60 minutes Number of Risk Factors 4 09/27/23 10:23 PONV Score Severe Risk 09/27/23 10:23 Height & Weight Height & Weight: Anesthesia: Height & Weight Height 5 ft 8.11 in 10/01/23 06:30 Weight: 81 kg 10/01/23 06:30 Body Mass Index (BMI) 27.0 10/01/23 06:30 Respiratory Assessment Respiratory Assessment - cloth mercerizer back tender: Respiratory Tract Infection Hx - cloth mercerizer back tender Hx Respiratory Tract Infection No 09/27/23 10:23 STOP Sleep Apnea STOP Sleep Apnea - cloth mercerizer back tender: STOP Sleep Apnea - cloth mercerizer back tender Hx Hypertension Yes: PRN MED HCTZ/AMLODIPINE 09/27/23 10:23 Hx Sleep Apnea No 09/27/23 10:23 CPAP No 09/27/23 10:23 BIPAP No 09/27/23 10:23 Do you snore loudly (louder Yes 09/27/23 10:23 than talking or can be heard Do you often feel tired/ Yes 09/27/23 10:23 fatigued/ sleepy during daytime? Has anyone observed you stop No 09/27/23 10:23 breathing during sleep? STOP Results Positive 09/27/23 10:23 QUESTION #5 FULL TEXT : Do you snore loudly (louder than talking or can be heard through closed doors)? 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 confused, unrespo /Reproduction History /Reproductive History - cloth mercerizer back tender: /Reproductive Hx- cloth mercerizer back tender Hx Now Gestational Age (in weeks): EDC: Hx Hx Para Hx Section SAB No 09/27/23 10:23 Active Medications Active Medications: Current Medications Generic Name Dose Route Start Last Admin Trade Name Freq PRN Reason Stop Dose Admin Clindamycin Phosphate 900 mg in 50 mls @ 75 mls/hr 10/01/23 07:30 Cleocin IV 10/01/23 08:09 PREOP ONE Lactated Ringer's 1,000 mls @ 15 mls/hr 10/01/23 06:15 10/01/23 06:36 IV 15 mls/hr .Q48H ABDI Administration PFSH Medical History Back pain Difficulty swallowing Asthma History of pain when walking History of echocardiogram History of stress test History of irregular heartbeat Cardiology follow-up encounter Left ankle sprain Strain of left knee Strain of left hip Lumbar strain Contact with and (suspected) exposure to other viral communicable diseases Acute sinusitis Headache Essential hypertension Nephrolithiasis Acute maxillary sinusitis, unspecified Wears contact lenses Arthritis Migraine headache Non-smoker Shortness of breath on exertion Leg cramps Acute cervical myofascial strain Vertigo Irritant dermatitis Nausea ASCUS of cervix with negative high risk HPV Stress incontinence Stomach ulcer Home Medications ?Medication ?Instructions ?Recorded ?Last Taken ?Type cholecalciferol (vitamin D3) 25 25 mcg PO QHS 11/20/20 03/27/21 History mcg (1,000 unit) capsule vitamin E mixed 400 unit capsule 400 unit PO MOWEFR 11/20/20 03/27/21 History albuterol sulfate 90 mcg/actuation 2 inh inhalation Q8H PRN PRN 09/01/23 Unknown History aerosol inhaler (Ventolin HFA) shortness of breath or wheezing amlodipine 5 mg tablet 5 mg PO DAILY PRN PRN BP 09/01/23 09/30/23 History hydrochlorothiazide 25 mg tablet 25 mg PO DAILY PRN PRN BP 09/01/23 Unknown History acetaminophen 500 mg capsule 500 mg PO Q6H PRN pain #30 caps 09/03/23 Unknown Rx ibuprofen 600 mg tablet 600 mg PO Q6H PRN pain #30 tabs 09/03/23 Unknown Rx ondansetron 4 mg disintegrating 4 mg PO Q8H PRN nausea and 09/03/23 Unknown Rx tablet vomiting #14 tabs oxycodone 5 mg tablet 5 mg PO Q4H pain 7 days #42 tabs 09/03/23 Unknown Rx aspirin 81 mg capsule 81 mg PO DAILY 09/27/23 09/28/23 History famotidine 20 mg tablet (Acid 20 mg PO DAILY 10/01/23 Unknown History 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)) Allergy/AdvReac Type Severity Reaction Status Date / Time amoxicillin (Amoxicillin) Allergy Mild Rash Verified 10/01/23 06:27 clonidine Allergy Nausea/Vom/ Verified 10/01/23 06:27 Diarrhea erythromycin base Allergy Rash Verified 09/27/23 10:23 (Erythromycin Base) Latex, Natural Rubber Allergy Rash Verified 10/01/23 06:27 Opioids - Morphine Analogues Allergy Nausea/Vom/ Verified 10/01/23 06:27 (narcotics) Diarrhea Sulfa (Sulfonamide Allergy Unknown Verified 10/01/23 06:27 Antibiotics) sulfamethoxazole (From Allergy Other Verified 10/01/23 06:27 Bactrim) trimethoprim (From Bactrim) Allergy Other Verified 10/01/23 06:27 gabapentin AdvReac Intermediate Rash Verified 10/01/23 06:27 doxycycline AdvReac Nausea Verified 10/01/23 06:27 hydromorphone (From Dilaudid) AdvReac Vomiting Verified 10/01/23 06:27 tetracycline AdvReac Nausea/Vom/ Verified 10/01/23 06:27 Diarrhea Family History Father Cancer Brother CVA (cerebral vascular accident) Mental and behavioral problem Mother Colon cancer Surgical History Hx of foot surgery Status post bilateral salpingectomy History of total vaginal hysterectomy (TVH) Hx of spinal surgery Anal fissure History of cholecystectomy History of appendectomy Social History number of children: 3 current occupational status: employed current occupation: 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
--- NOTE | 2023-10-01 07:12 | RAD_ITS ---
STUDY: X-RAY RIGHT FOOT, THIRD TOE REASON FOR EXAM: Female, 53 years old. Intraoperative digital documentation views of fusion of the 2nd-4th PIP joints and distal fifth metatarsal. TECHNIQUE: Approximately 40 intraoperative digital documentation view(s) of the toes were obtained. COMPARISON: None. FINDINGS: Intraoperative digital documentation views of fusion of second, third and fourth PIP joints and distal fifth metatarsal. RAD/Toe(s) Min 2 Views IMPRESSION: Intraoperative digital documentation views. Electronically Signed: Jerry Mcneil MD at 11:40 EDT ,
[2023-10-01] MEDS: Clindamycin 900 MG/50 ML BAG 75 MG IV (08:00)
--- NOTE | 2023-10-01 10:47 | OP.PCM_ITS ---
Problems Associated Problem List Diagnoses (1) Other hammer toe(s) (acquired), right foot: (2) Tailor's bunion of right foot: (3) Hallux rigidus of both feet: Report of Operation Date of Procedure: 10/01/23 Pre-Operative Diagnosis: 1. Hammertoe deformity digits 2 through 4 right foot 2. Hammer hammertoe deformity with adductovarus angulation fifth toe right foot 3. Tailor's bunion noted right foot 4. Hallux limitus/rigidus, right foot Post-Operative Diagnosis: Same Surgery/Procedure Performed:: 1. Cheilectomy first metatarsophalangeal joint 2. PIPJ arthrodesis for hammertoe correction right second toe 3. PIPJ arthrodesis for hammertoe correction right third toe 4. PIPJ arthrodesis for hammertoe correction right fourth toe 5. Derotational arthroplasty right fifth toe 6. Tailor's bunionectomy via distal chevron osteotomy, right foot Description of Surgical Findings:: Patient had chronic hammertoe deformities failed conservative treatment consisting of shoe gear modification and padding. Wished to proceed with operative management. Surgeon: Mark Anthony Jansen professional healthcare representative: None (emiliano trivedi) Type of Anesthesia: General Special Medications: popliteal block Specimen's removed: none Drains: none Estimated Blood Loss (mL): minimal Description of Procedure: Patient brought back the operating placed comfortably in supine position on operating room table. Patient induced under general anesthesia. All osseous prominences offloaded prevent any compression neuropraxia. Well-padded right thigh tourniquet was applied. Right lower extremity was scrubbed prepped draped using typical aseptic fashion. Once cleared by anesthesia right lower extremity was elevated exsanguinated tourniquet was inflated to 250 mmHg. 1. Cheilectomy first metatarsophalangeal joint Was linear incision was drawn just medial to the extensor hallucis tendon over the first metatarsophalangeal joint that was made with a 15 blade through epidermis and dermis into subcutaneous tissue. All bleeders were identified cauterized any neurovascular structures identified and protected with blunt retraction. Atraumatic dissection was taken down to level of deep fascia and first metatarsal phalangeal joint capsule a linear capsulotomy was performed and the joint was exposed dorsally medially and laterally. Using a sagittal saw a cheilectomy was performed and adequate resection of the dorsal with dorsal osteophytes from both sides of the joint including the first metatarsal head and proximal phalangeal base were performed and confirmed with fluoroscopic imaging. The site was flushed with copious amounts of normal sterile saline and closed with 3-0 Vicryl simple interrupted buried to the capsule as well as simple interrupted buried 3-0 Vicryl to subcutaneous layer followed by 4-0 nylon for horizontal mattress closure of the first metatarsophalangeal joint. 2. PIPJ arthrodesis for hammertoe correction right second toe Linear incision made full-thickness through epidermis and dermis from the level of the metatarsophalangeal joint to just distal to the proximal interphalangeal joint. Any bleeders identified cauterized neurovascular structures were protected with blunt retraction. Proximal interphalangeal joint was identified transverse tenotomy and capsulotomy were performed medial and lateral aspects of the joint were released and the extensor tendon was dissected off the proximal phalanx to expose the metatarsal phalangeal joint wound which a capsulotomy was performed dorsally medially and laterally with a 15 blade to allow for reduc tion. Kelikian push-up test was performed along the way to ensure adequate reduction of deformity. The proximal phalangeal head and middle phalangeal base were excised using a sagittal saw. A [employer]flip phaLINX implant was implanted site using manufactures guidelines across the with the toe held in a rectus position. Placement joint apposition and position alignment toe confirmed to be rectus on fluoroscopic imaging as well as clinical examination. Site was flushed with copious amounts normal sterile saline. Skin closure extensor digitorum longus tendon was repaired with over and over 3-0 Vicryl. Skin closure performed with simple interrupted nylon fluoroscopy. 3. PIPJ arthrodesis for hammertoe correction right third toe Linear incision made full-thickness through epidermis and dermis from the level of the metatarsophalangeal joint to just distal to the proximal interphalangeal joint. Any bleeders identified cauterized neurovascular structures were protected with blunt retraction. Proximal interphalangeal joint was identified transverse tenotomy and capsulotomy were performed medial and lateral aspects of the joint were released and the extensor tendon was dissected off the proximal phalanx to expose the metatarsal phalangeal joint wound which a capsulotomy was performed dorsally medially and laterally with a 15 blade to allow for reduction. Kelikian push-up test was performed along the way to ensure adequate reduction of deformity. The proximal phalangeal head and middle phalangeal base were excised using a sagittal saw. A [employer] phaLINX implant was implanted site using manufactures guidelines across the with the toe held in a rectus position. Placement joint apposition and position alignment toe confirmed to be rectus on fluoroscopic imaging as well as clinical examination. Site was flushed with copious amounts normal sterile saline. Skin closure extensor digitorum longus tendon was repaired with over and over 3-0 Vicryl. Skin closure performed with simple interrupted nylon fluoroscopy. 4. PIPJ arthrodesis for hammertoe correction right fourth toe Linear incision made full-thickness through epidermis and dermis from the level of the metatarsophalangeal joint to just distal to the proximal interphalangeal joint. Any bleeders identified cauterized neurovascular structures were protected with blunt retraction. Proximal interphalangeal joint was identified transverse tenotomy and capsulotomy were performed medial and lateral aspects of the joint were released and the extensor tendon was dissected off the proximal phalanx to expose the metatarsal phalangeal joint wound which a capsulotomy was performed dorsally medially and laterally with a 15 blade to allow for reduction. Kelikian push-up test was performed along the way to ensure adequate reduction of deformity. The proximal phalangeal head and middle phalangeal base were excised using a sagittal saw. A [employer] phaLINX implant was implanted site using manufactures guidelines across the with the toe held in a rectus position. Placement joint apposition and position alignment toe confirmed to be rectus on fluoroscopic imaging as well as clinical examination. Site was flushed with copious amounts normal sterile saline. Skin closure extensor digitorum longus tendon was repaired with over and over 3-0 Vicryl. Skin closure performed with simple interrupted nylon fluoroscopy. 5. Derotational arthroplasty right fifth toe Elliptical incision was drawn and made dorsal lateral to the proximal interphalangeal joint and an angulation running from distal medial to proximal lateral to added allow for a skin plasty there would derotate the fifth toe in the frontal plane. This was made with a 15 blade through epidermis dermis and subcutaneous tissue. Any bleeders identified cauterized. Neurovascular structures protected with blunt retraction. Transverse capsulotomy performed at the level of the proximal interphalangeal joint and a sagittal saw was used to resect the proximal phalangeal head. Adequate resection was noted using fluoroscopic imaging as well as positional alignment site was flushed with copious amounts of normal sterile saline and skin closure was performed with simple interrupted nylon. Adequate derotation was performed upon closure of the skin plasty as confirmed with fluoroscopic imaging and intraoperative evaluat ion. 6. Tailor's bunionectomy via distal chevron osteotomy, right foot A linear incision was made with a 15 blade through the epidermis dermis into subcutaneous tissue just lateral to the extensor digitorum longus tendon at the fifth metatarsal phalangeal joint. Any bleeders identified cauterized. Neurovascular structures protected with blunt retraction. Blunt dissection taken down to level of the deep fascia and capsule. Transverse capsulotomy was performed at the level of the fifth metatarsal phalangeal joint periosteum dissected off the fifth metatarsal head to allow for exposure of the fifth metatarsal head and neck. Using a guidepin placed from lateral to medial in a position that would allow for lengthening as I ran it from proximal lateral to distal medial this was used as a guide to make a chevron osteotomy with a sagittal saw. The fifth metatarsal head was then translated medially approximately 5 mm. It was pinned in this position and a fully threaded headless cannulated screw was placed across the site from [employer] using manufactures guidelines. Site was flushed with copious months normal sterile saline subcutaneous and deep fascial closure performed with simple interrupted 3-0 Vicryl. Skin closure performed with simple interrupted 4-0 nylon. Tourniquet was let down total tourniquet time was 110 minutes. All sites were dressed with Betadine Adaptic 4 x 4's Kerlix and Dima bandage. Patient was transported to PACU vital signs stable vascular status intact all digits for further monitoring prior to discharge. Patient tolerated procedure and anesthesia well apparent satisfactory condition. Patient will be discharged home and will ambulate assisted by a cam boot. No complication Adequate reduction of forefoot deformities
--- NOTE | 2023-10-01 11:33 | PCM.POST.ANE ---
Anesthesia: Postop Eval I Current Vital Signs Temperature: 97.1 F Pulse Rate: 88 Blood Pressure: 130/82 Respiratory Rate: 16 Pulse Ox: 95 Oxygen Delivery Method: Room Air Assessment Airway patent: Yes Spontaneous unlabored respirations: Yes Mental status: Awake and Calm nausea: Yes Vomiting: No Anesthesia Complication: No Fluid Hydration Crystalloid volume administer (ml): 1,000 Total IV fluid infused: 1,000 Progress Note Anesthesia document: Postop Eval 1 completed: Yes
== END 2023-10-01 13:20 | disposition home or self-care (01) ==
LOC: SDC 06:00 → AC 06:02
PROVIDERS: PCP Family Medicine; Referring Provider Podiatrist; Visit Provider Podiatrist
PROC: (CPT 28296; principal; 2023-10-01 07:15)
DX: M20.41 Other hammer toe(s) (acquired), right foot (principal); M21.611 Bunion of right foot
CPT/HCPCS: 28296; 28124; 28160; 28285; 28289; 28750; 01480; 73660; 76000; C1713; J7120; J2405

== ENCOUNTER → 2023-12-20 | Outpatient (CLI) | payer OTHER, SELFPAY ==
--- OUTSIDE RECORDS SUMMARY | 2023-12-20 08:46 | XMS RPT_ITS | CCD ---
Author Organization [facility] ion [facility] Care Team Providers Care Embedded Software Architect Name Role Phone Darien Sidhu Unavailable Ricardo Frazier Unavailable Unavailable Unavailable Dr. RICARDO FRAZIER Primary Care Unavailable Giselle Agarwal Attending UnavailRicardo Lomax DO Primary Care Provider RICARDO FRAZIER Primary Care Unavailable Unavailable Primary Care Provider UnavailAurelio Pearl MD Primary Care Provider AURELIO REYNOLDS Primary Care Unavailable CRICKET JOHNSON Attending Unavailable AURELIO REYNOLDS Primary Care Unavailable CRICKET JOHNSON Referring Unavailable CRICKET JOHNSON Admitting Unavailable Allergies Allergy Classification Reported Allergen(s) Allergy Type Date of Onset Reaction(s) Facility Macrolides (antibiotic) (2 sources) Erythromycin; Translations: [erythromycin] Drug Allergy Diarrhea [facility] Work Phone: Sulfonamides (antibiotic) (2 sources) Sulfonamides (Antibiotic); Translations: [Sulfa Drugs] Drug Allergy [facility] Work Phone: Tetracyclines (antibiotic) (2 sources) Tetracycline; Translations: [tetracycline] Drug Allergy [facility] Work Phone: (2 sources) Sulfonamides (Antibiotic); Translations: [Sulfa Drugs] drug allergy 7 [facility] Work Phone: (1 source) Tetracycline Drug Allergy 7 [facility] Work Phone: (7 sources) Erythromycin; Translations: [erythromycin] Drug Allergy 0 Diarrhea, Rash [facility] (3 sources) Tetracycline; Translations: [tetracycline] Drug Allergy 7 Nausea and vomiting [facility] and Work Phone: (3 sources) Amoxicillin / Clavulanate; Translations: [AMOXICILLIN-POT CLAVULANATE] Drug Allergy 6 GI Upset [facility] (5 sources) gabapentin; Translations: [GABAPENTIN] Drug Allergy 2 Unknown, Rash [facility] Work Phone: (3 sources) Latex; Translations: [LATEX] Drug Allergy 1 [facility] (6 sources) Penicillins; Translations: [PENICILLINS] Propensity to adverse reactions 0 Rash, GI Intolerance [facility] (3 sources) Sulfamethoxazole ; Translations: [SULFAMETHOXAZOL E] Drug Allergy 4 Other: See Comments [facility] Work Phone: (6 sources) Sulfonamides (Antibiotic); Translations: [SULFA (SULFONAMIDE ANTIBIOTICS)] Drug Allergy 4 Other: See Comments, Other (See Comments), Unknown [facility] (3 sources) Latex; Translations: [LATEX, NATURAL RUBBER] Propensity to adverse reactions to drug 1 Rash [facility] (2 sources) cloNIDine; Translations: [CLONIDINE] Drug Allergy 2 Nausea and vomiting [facility] (2 sources) Doxycycline; Translations: [DOXYCYCLINE] Drug Allergy 2 Nausea and vomiting [facility] (2 sources) Morphinan opioid; Translations: [OPIOIDS - MORPHINE ANALOGUES] Propensity to adverse reactions to drug 9 Nausea and vomiting [facility] Medications Current Medications Medication Drug Class(es) Dates Sig (Normalized) Sig (Original) acetaminophen 325 mg oral tablet (6 sources) Start: 06-08-2015 take 2 tablets by mouth every four hours as needed acetaminophen (TYLENOL) 325 MG tablet Take 2 (two) tablets (650 mg total) by mouth every 4 (four) hours as needed . 0 06/08/2015 Active take 2 tablets by mo uth every six hours as needed acetaminophen (TYLENOL) 325 mg tablet Ta ke 650 mg by mouth every 6 hours as needed. 0 Active Comment on above: Take 650 mg by mouth every 6 hours as needed. Take 2 tablets by mo uth every 4 hours as needed (for pain.). ascorbic acid 500 mg oral capsule (1 source) Vitamin C Start: 11-20-2020 ascorbic acid, vitamin C, 500 mg cap Take by mouth . 0 11/20/2020 Active belladonna alkaloids 16.2 mg / opium 60 mg rectal suppository (4 sources) Start: 06-08-2015 take 60 mg rectal route every twelve hours as needed belladonna alkaloids-opium (B&O SUPPRETTES) 16.2-60 MG suppository Insert 1 (one) suppository (60 mg total) into the rectum every 12 (twelve) hours as needed . 0 06/08/2015 Active Start: 06-08-2015 belladonna-opi um (B AND O 16-A) 16.2-60 mg suppository 1 Suppository by RECTAL route twice daily as needed (rectal pain). 30 Suppository 0 06/08/2015 Active Comment on above: 1 Suppository by REC NATHALIE route twice daily as needed (rectal pain). cholecalciferol 0.025 mg oral capsule (1 source) Vitamin D Start: cholecalciferol, vitamin D3, 25 mcg (1,000 unit) capsule Take 25 mcg by mouth . 0 11/20/2020 Active clindamycin 150 mg oral capsule (1 source) Lincosamide Antibacterial Start: End: take 3 capsules by mouth three times daily clindamycin (CLEOCIN) 150 mg capsule Take 3 capsules by mouth three times a day for 5 days. 45 capsule 0 06/05/2023 06/10/2023 Active Comment on above: Take 3 capsules by m outh three times a day for 5 days. cyclobenzaprine hydrochloride 10 mg oral tablet (1 source) Muscle Relaxant Start: cyclobenzaprine (FLEXERIL) 10 MG tablet dilTIAZem (4 sources) Calcium Channel Saji Start: 016 diltiazem (CARDIZEM) 2% cream DILTIAZIM 2 % CREAM - APPLY PEA-SIZED AMOUNT TO ANUS, TWICE A DAY 0 04/09/2015 Active Start: 04-09-2015 Diltiazem 2 % cream DILTIAZIM 2 % CREAM - APPLY PEA-SIZED AMOUNT TO ANUS, TWICE A DAY 1 Tube 1 04/09/2015 Active Comment on above: DILTIAZIM 2 % CREAM - APPLY PEA-SIZED AMOUNT TO ANUS, TWICE A DAY doxycycline monohydrate 100 mg oral tablet (2 sources) Tetracycline-class Drug Start: 06-02-2023 End: 06-09-2023 take 1 tablet by mouth twice daily doxycycline monohydrate 100 mg tablet Indications: Skin infection Take 1 tablet by mouth two times a day for 7 days. 14 tablet 0 06/02/2023 06/09/2023 Active Comment on above: Take 1 tablet by rowena two times a day for 7 days. doxylamine succinate 25 mg oral tablet (4 sources) doxylamine (UNIS OM) 25 mg tablet Take by mouth . 0 Active DOXYLAMINE SUCCI FLIP (SLEEP AID ORAL) Take by mouth. 0 Active Comment on above: Take by mouth. pantoprazole 20 mg delayed release oral tablet (4 sources) Proton Pump Inhibitor take 1 tablet by mouth once daily pantoprazole (PROTONIX) 20 MG tablet Take 1 (one) tablet (20 mg total) by mouth daily . 0 Active Comment on above: Take 20 mg by mouth once daily. Completed/Discontinued Medications Medication Drug Class(es) Dates Sig (Normalized) Sig (Original) Aspirin (1 source) Platelet Aggregation Inhibitor, Nonsteroidal Anti-inflammatory Drug Start: 11-17-2016 ACETYL SALICYLIC ACID POWD as directed ASPIRIN [id number] Darien BAKER diazePAM 5 mg oral tablet (4 sources) Benzodiazepine Start: 08-25-2015 take 1 tablet by mouth every six hours as needed diazepam (VALIUM) 5 mg tablet Take 1 tablet by mouth every 6 hours as needed. 30 tablet 0 08/25/2015 Active Start: 07-16-2015 diazepam (BRODERICK TAT) 12.5-15-17.5-20 mg kit 15 mg by RECTAL route as needed. 20 Syringe 2 07/16/2015 Active Comment on above: 15 mg by RECTAL rout e as needed. Take 1 tablet by rowena th every 6 hours as needed. docusate sodium 100 mg oral capsule (2 sources) Start: 06-08-2015 take 1 capsule by mouth twice daily docusate sodium (COLACE) 100 mg capsule Take 1 capsule by mouth twice daily. 60 capsule 0 06/08/2015 Active Comment on above: Take 1 capsule by mo uth twice daily. ibuprofen 200 mg oral tablet (6 sources) Nonsteroidal Anti-inflammatory Drug Start: 06-08-2015 take 1 tablet by mouth every six hours as needed ibuprofen (ADVIL) 200 mg tablet Take 1 tablet by mouth every 6 hours as needed (for pain.). 60 tablet 0 06/08/2015 Active take 2 tablets by mo uth every twelve hours as needed ibuprofen (ADVIL,MOTRIN) 200 MG tablet T travis 2 (two) tablets (400 mg total) by mouth every 12 (twelve) hours as needed . 0 Active take 2 tablets by mo uth every twelve hours as needed ibuprofen (MOTRIN) 200 mg tablet Take 40 0 mg by mouth twice daily as needed. 0 Active Comment on above: Take 400 mg by mouth twice daily as needed. Take 1 tablet by rowena th every 6 hours as needed (for pain.). MULTIPLE VITAMIN (1 source) Start: 11-18-19 17 DAILY MULTIPLE VITAMINS TABS MULTIPLE VITAMIN [id number] Darien BAKER nitroglycerin 0.004 mg/mg rectal ointment (2 sources) Nitrate Vasodilator Start: 07-16-19 16 nitroglycerin (RECTIV) 0.4 % (w/w) oint 1 application by RECTAL route twice daily. 1 Tube 0 07/16/2015 Active Comment on above: 1 application by REC NATHALIE route twice daily. ondansetron 4 mg disintegrating oral tablet (3 sources) Serotonin-3 Receptor Antagonist Start: 08-09-19 21 take 1 tablet by mouth four times daily as needed for nausea Ondansetron 4 MG Oral Tablet Disintegrating TAKE 1 TABLET 4 times daily PRN nausea Quantity: 10 Refills: 1 Ordered: 08-Aug-2020 Ricardo Frazier DO Start : 08-Aug-2020 Active Start: 07-24-2017 take 1 tablet by rowena th every six hours as needed for nausea and nausea ondansetron orally disintegrating (ZOFRAN ODT) 4 mg disintegrating tablet Indications: Nausea Take 1 tablet by mouth every 6 hours as needed for Nausea/Vomiting. 5 tablet 0 07/24/2017 Active Comment on above: Take 1 tablet by rowena th every 6 hours as needed for Nausea/Vomiting. oxybutynin chloride 5 mg oral tablet (1 source) Cholinergic Muscarinic Antagonist Ditropan 5 MG TABS TAKE 1 TABLET DAILY. Quantity: 0 Refills: 0 Ordered: 02-Oct-2021 DO Active oxyCODONE hydrochloride 30 mg oral tablet (2 sources) Opioid Agonist Start: 06-08-2015 oxyCODONE (OXYIR) 30 mg immediate release tablet Take by mouth as directed. 60 tablet 0 06/08/2015 Active Comment on above: Take by mouth as dir ected. predniSONE 10 mg oral tablet (1 source) [...] Refills: 0 Ordered: 02-Oct-2021 DO Active Problems Active Problems Problem Classification Problem Date Documented Date Episodic/Chronic Acquired foot deformities (1 source) Hammer toe; Translations: [Other hammer toe(s) (acquired), left foot] 07-03-2023 Chronic Anxiety disorders (1 source) Anxiety; Translations: [Anxiety state, unspecified] Chronic Asthma (2 sources) Mild intermittent asthma; Translations: [Mild intermittent asthma, uncomplicated] Onset: 05-17-2015 05-17-2015 Chronic Calculus of urinary tract (3 sources) [...] reading without diagnosis of hypertension] Episodic Other connective tissue disease (1 source) Pain of toe of right foot; Translations: [Pain in right toe(s)] 07-03-2023 Episodic Other connective tissue disease (2 sources) Pain in left foot; Translations: [Pain in left foot] Onset: 06-29-2023 Episodic Other connective tissue disease (2 sources) Foot pain Onset: 06-29-2023 Episodic Other nervous system disorders (3 sources) Paresthesia of hand ; Translations: [Disturbance of skin sensation] Episodic Other screening for suspected conditions (not mental disorders or infectious disease) (1 source) Encounter for screening for cardiovascular disorders; Translations: [Encounter for screening for cardiovascular disorders] Onset: 11-04-2021 Episodic Other skin disorders (1 source) Ingrowing nail; Translations: [Ingrowing nail] 07-03-2023 Episodic Skin and subcutaneous tissue infections (1 source) Infection of skin; Translations: [Local infection of the skin and subcutaneous tissue, unspecified] 06-02-2023 Episodic Spondylosis; intervertebral disc disorders; other back problems (2 sources) Prolapse of cervical intervertebral disc with degeneration; Translations: [Displacement of cervical intervertebral disc without myelopathy] Chronic Spondylosis; intervertebral disc disorders; other back problems (6 sources) Backache; Translations: [Lumbago] Episodic Unclassified (1 source) Encounter for check up; Translations: [Encounter for general adult medical examination without abnormal findings] Onset: 11-17-2016 11-17-2016 Past or Other Problems Problem Classification Problem Date Documented Da te Episodic/Chronic Abdominal pain (5 sources) Flank pain; Translations: [Abdominal pain, other specified site] Onset: 04-18-2009 03-16-2015 Episodic Anal and rectal conditions (4 sources) Anorectal pain; Translations: [Other specified diseases of anus and rectum] Onset: 03-16-2015 03-16-2015 Episodic Other gastrointestinal disorders (2 sources) Diarrhea; Translations: [Diarrhea, unspecified] Onset: 03-16-2015 03-16-2015 Episodic Other nervous system disorders (2 sources) Postoperative pain ; Translations: [Other acute postprocedural pain] Onset: 06-07-2015 06-07-2015 Episodic Results Test Name Value Interpretation Reference Range Facility XR FOOT LEFT 3+ VIEWS (STAND VIKAS)on 06-29-2023 XR FOOT LEFT 3+ VIEWS (STANDARD) Adductovarus rotation of the fourth and fifth toes No acute fractures or dislocations noted. No gross deformity Dictated by: CRICKET JOHNSON on Sat July 03, 2023 9:39:47 AM EDT Transcribed by: CRICKET JOHNSON on Sat July 03, 2023 9:39:47 AM EDT Finalized by: CRICKET JOHNSON on Sat July 03, 2023 9:39:47 AM EDT Normal [facility] Comment on above: Order Comment: Injury/Trauma or Illness? :Illness/Other How long have you had these symptoms (acute/chronic)?:Chronic Reason for exam?:pain History of cancer?:u Surgeries, chemotherapy, or radiation?:u Type of Exam?:Initial Additional signs and symptoms?:no CNPNon 06-05[facility]2023 [facility] ([id number]) 1970 F Date Time Provider Department 06/05/23 REBEKAH DENIS RUST During your visit today, we recorded the following information about you: Rebekah Denis APRN.SUPPLIER SPECIALIST 06/05/2023 8:21 AM Signed Patient and let her know to stop the antibiotic that she is currently taking. We did get the culture back and it is staph. Did call in clindamycin for 5 days patient should start taking this medication. Gia Velázquez MA 06/05/2023 2:04 PM Signed Patient notified of results, verbalized understanding of instructions given. Gia Velázquez MA Allergies As of Date: 06/05/2023 Noted Allergy Reaction AUGMENTIN (AMOXICILLIN-POT CLAVUL*04/09/2015 8 - GI Upset BACTRIM (SULFAMETHOXAZOLE) 04/19/2013 14 - Other: See Comments Comments: SJS ERYTHROMYCIN 04/18/2009 Comments: Nausea GABAPENTIN 06/02/2023 16 - Unknown Comments: Turned bright red LATEX 08/21/2010 2 - Rash PENICILLINS 04/18/2009 2 - Rash SULFA (SULFONAMIDE ANTIBIOTICS) 04/09/2015 14 - Other: See Comments Comments: Adal bao syndrome Date Reviewed: 02/06/2019 Reviewed by: Kirstin Meredith ([place]) - Fully Assessed Reason for Visit: Results [95] Orders [681] Order(s):clindamycin (CLEOCIN) 150 mg capsuleTake 3 capsules by mouth three times a day for 5 days.Disp: 45 capsuleRfl: 0 Prescriptions as of 06/05/2023 - clindamycin (CLEOCIN) 150 mg capsule Take 3 capsules by mouth three times a day for 5 days. - doxycycline monohydrate 100 mg tablet Take 1 tablet by mouth two times a day for 7 days. - ondansetron orally disintegrating (ZOFRAN ODT) 4 mg disintegrating tablet Take 1 tablet by mouth every 6 hours as needed for Nausea/Vomiting. - diazepam (VALIUM) 5 mg tablet Take 1 tablet by mouth every 6 hours as needed. - diazepam (DIASTAT) 12.5-15-17.5-20 mg kit 15 mg by RECTAL route as needed. - nitroglycerin (RECTIV) 0.4 % (w/w) oint 1 application by RECTAL route twice daily. - belladonna-opium (B AND O 16-A) 16.2-60 mg suppository 1 Suppository by RECTAL route twice daily as needed (rectal pain). - acetaminophen (TYLENOL) 325 mg tablet Take 2 tablets by mouth every 4 hours as needed (for pain.). - oxyCODONE (OXYIR) 30 mg immediate release tablet Take by mouth as directed. - ibuprofen (ADVIL) 200 mg tablet Take 1 tablet by mouth every 6 hours as needed (for pain.). - docusate sodium (COLACE) 100 mg capsule Take 1 capsule by mouth twice daily. - ibuprofen (MOTRIN) 200 mg tablet Take 400 mg by mouth twice daily as needed. - acetaminophen (TYLENOL) 325 mg tablet Take 650 mg by mouth every 6 hours as needed. - DOXYLAMINE SUCCINATE (SLEEP AID ORAL) Take by mouth. - Diltiazem 2 % cream DILTIAZIM 2 % CREAM - APPLY PEA-SIZED AMOUNT TO ANUS, TWICE A DAY - pantoprazole DR (PROTONIX) 20 mg tablet Take 20 mg by mouth once daily. Problem List As Of Date 06/05/2023 Noted Resolved Generalized abdominal pain [R10.84] 04/18/2009 Abdominal pain, right upper quadrant [R10.11] 07/19/2010 05/17/2015 Cholecystitis chronic 07/29/2010 05/17/2015 Diarrhea [R19.7] 03/16/2015 Anal or rectal pain [K62.89] 03/16/2015 Anal fissure [K60.2] 05/17/2015 Mild intermittent asthma [J45.20] 05/17/2015 Post-op pain [G89.18] 06/07/2015 Prescriptions ordered this encounter Disp Refills Start End CLINDAMYCIN HCL 150 MG CAPSULE 45 c* 0 06/05/2023 06/10/2023 Route: ORAL Sig: Take 3 capsules by mouth three times a day for 5 days. Encounter Status:Closed by GIA VELÁZQUEZ on 06/05/23 [facility] Bacteria Wnd Culton 06-02-19 Bacteria identified Cx Nom (Wound) ORGANISM ID: 1 Rare Staphylococcus intermedius group GRAM STAIN: No organisms seen No Polymorphonuclear Leukocytes ORGANISM ID: 1 (STAPHYLOCOCCUS INTERMEDIUS GROUP) -- ANTIBIOTIC INTERPRETATION OPAL STATUS REFERENCE RANGE -- Oxacillin S <=0.25 F Susceptible <=2 , Resistant >2 Oxacillin-susceptible staphylococci are susceptible to other penicilllinase-stable penicillins, beta-lactam/beta-lacta jim inhibitor combinations, anti-staphylococcal cephems, and carbapenems. Erythromycin S <=0.25 F Susceptible <=0.5 , Intermediate >.5 , Resistant >4 Clindamycin S 0.25 F Susceptible <=0.5 , Intermediate >.5 , Resistant >2 Trimeth sulfameth S <=10 F Susceptible <=40 , Resistant >40 Vancomycin S 1 F Susceptible <=4 , Intermediate >4 , Resistant >16 Rifampin S <=0.5 F Susceptible <=1 , Intermediate >1 , Resistant >2 Rifampin should not be used alone for antimicrobial therapy. Tetracycline R >=16 F Susceptible <=4 , Intermediate >4 , Resistant >8 Doxycycline I 8 F Susceptible <=4 , Intermediate >4 , Resistant >8 Abnormal [facility] Comment on above: Performed By: #### [id number] #### [facility] CLIA [id number] [address] [place] [address] CNOVon 06-02-2023 CNOV Office Visit ([facility] ) ANNA MARIE BRIGHT ([id number]) 1970 F Date Time Provider Department 06/02/23 6:30 PM REBEKAH DENIS RUST During your visit today, we recorded the following information about you: Temperature Pulse Respiration Blood pressure 98 degrees 67/minute 18/minute 138/84 Weight 85.7 kg Rebekah Denis APRN.SUPPLIER SPECIALIST 06/02/2023 7:06 PM Signed Subjective Patient came in with complaints of red bump on the left index finger. Patient says started at 630 this morning seems to be worse at this point. Patient says is only painful to touch. Denies any other symptoms at this time. Patient did say that her infant grandson also has a couple spots on him so she would like tested to make sure it is nothing serious. The history is provided by the patient. No foreign languages department chair was used. Review of Systems Constitutional: Negative. Skin: Negative. Objective Physical Exam Constitutional: Appearance: Normal appearance. Pulmonary: Effort: Pulmonary effort is normal. Musculoskeletal: Hands: Comments: Small half a pea sized raised erythematous area with very small pinpoint fluctuant area. Neurological: Mental Status: She is alert. PAST MEDICAL HISTORY Diagnosis Date Asthma Bradshaw-Bao syndrome (HCC) PAST SURGICAL HISTORY Procedure Laterality Date APPENDECTOMY COLONOSCOPY W/BIOPSY SINGLE/MULTIPLE 03/08/15 normal, neg for microscopic colitis EGD REMOVAL TUMOR POLYP/OTHER LESION SNARE TECH 04-19-09 ESOPHAGOGASTRODUODENOS COPY TRANSORAL DIAGNOSTIC 07/18/10 INtraoperative - no ulcers or gastritis, fundic gland polyps ESOPHAGOGASTRODUODENOS COPY TRANSORAL DIAGNOSTIC 03/08/15 fundic polyp, neg celiac, neg gastriitis LAPS SURG CHOLECYSTECTOMY W/CHOLANGIOGRAPHY 07/18/10 Normal IOC, Edematous cholecystitis Tubaligation ALLERGIES Augmentin [Amoxicillin-Pot Clavulanate], Bactrim [Sulfamethoxazole], Erythromycin, Gabapentin, Latex, Penicillins, and Sulfa (Sulfonamide Antibiotics) MEDICATIONS acetaminophen (TYLENOL) 325 mg tablet Take 2 tablets by mouth every 4 hours as needed (for pain.). acetaminophen (TYLENOL) 325 mg tablet Take 650 mg by mouth every 6 hours as needed. doxycycline monohydrate 100 mg tablet Take 1 tablet by mouth two times a day for 7 days. ondansetron orally disintegrating (ZOFRAN ODT) 4 mg disintegrating tablet Take 1 tablet by mouth every 6 hours as needed for Nausea/Vomiting. (Patient not taking: Reported on 02/06/2019 ) diazepam (VALIUM) 5 mg tablet Take 1 tablet by mouth every 6 hours as needed. (Patient not taking: Reported on 07/24/2017 ) diazepam (DIASTAT) 12.5-15-17.5-20 mg kit 15 mg by RECTAL route as needed. (Patient not taking: Reported on 07/24/2017 ) nitroglycerin (RECTIV) 0.4 % (w/w) oint 1 application by RECTAL route twice daily. (Patient not taking: Reported on 07/24/2017 ) belladonna-opium (B AND O 16-A) 16.2-60 mg suppository 1 Suppository by RECTAL route twice daily as needed (rectal pain). (Patient not taking: Reported on 07/24/2017 ) oxyCODONE (OXYIR) 30 mg immediate release tablet Take by mouth as directed. (Patient not taking: Reported on 07/24/2017 ) ibuprofen (ADVIL) 200 mg tablet Take 1 tablet by mouth every 6 hours as needed (for pain.). (Patient not taking: Reported on 02/06/2019 ) docusate sodium (COLACE) 100 mg capsule Take 1 capsule by mouth twice daily. (Patient not taking: Reported on 07/24/2017 ) ibuprofen (MOTRIN) 200 mg tablet Take 400 mg by mouth twice daily as needed. DOXYLAMINE SUCCINATE (SLEEP AID ORAL) Take by mouth. (Patient not taking: Reported on 06/02/2023) Diltiazem 2 % cream DILTIAZIM 2 % CREAM - APPLY PEA-SIZED AMOUNT TO ANUS, TWICE A DAY (Patient not taking: Reported on 07/24/2017 ) pantoprazole DR (PROTONIX) 20 mg tablet Take 20 mg by mouth once daily. FAMILY HISTORY Problem Relation Age of Onset Cancer Father Mult myeloma Prostate Cancer Father Heart Paternal Grandmother Stroke Brother Stroke Maternal Grandmother Stroke Maternal Grandfather Social History Tobacco Use Smoking status: Never Smokeless tobacco: Never Substance Use Topics Alcohol use: No Alcohol/week: 3.9 standard drinks of alcohol Types: 3 Mixed Drinks per week Drug use: No ASSESSMENT/PLAN: 1. Skin infection - ICD9: 686.9, ICD10: L08.9 - ABSCESS AND WOUND CULTURE WITH GRAM STAIN - HSV1,2/VZV NAAT LESION - DOXYCYCLINE MONOHYDRATE 100 MG TABLET Wound was cleansed twice with alcohol. Once wound was dry 18-gauge needle was used to spring wound to collect drainage for HSV sample and wound culture. Wound culture did not get a significant amount. But sending to lab anyway. Patient was educated about possibilities of wound. Patient was also educated about proper use of medication and supportive therapies. Patient was okay with this care plan and will follow-up as needed. Rebekah Denis APRN.SUPPLIER SPECIALIST (more content not included)... Normal [facility] HSV+VZV DNA PADMAJA+probe Ql (Un sp spec)on 06-02-2023 HSV 1 DNA PADMAJA+probe Ql (Unsp spec) Not detected Normal Not Detected [facility] Comment on above: Order Comment: Specimen Type: SWAB Ordering Facility: [facility] Address: [address] [place] [address] Performed By: #### 3 3027-4 #### [facility] CLIA [id number] [address] [place] [address] OF GLADIS HSV 2 DNA PADMAJA+probe Ql (Unsp spec) Not detected Normal Not Detected [facility] Comment on above: Order Comment: Specimen Type: SWAB Ordering Facility: [facility] Address: [address] [place] [address] Performed By: #### 3 3027-4 #### [facility] CLIA [id number] [address] [place] [address] OF GLADIS VZV DNA PADMAJA+probe Ql (Unsp spec) Not detected Normal Not Detected [facility] Comment on above: Order Comment: Specimen Type: SWAB Ordering Facility: [facility] Address: [address] [place] [address] Performed By: #### 3 3027-4 #### [facility] CLIA [id number] [address] [place] [address] CARDI[address] SCORINGon 022 CT CARDIAC SCORING Patient Name: ANNA MARIE BRIGHT STUDY: CT CARDIAC SCORING; 11/04/2021 4:09 pm INDICATION: SCREENING FOR CARDIOVASCULAR DISORDER HTN. COMPARISON: None. ACCESSION NUMBER(S): [id number] ORDERING CLINICIAN: GISELLE AGARWAL TECHNIQUE: Using prospective ECG gating, CT scan of the coronary arteries was performed without intravenous contrast. Coronary calcium scoring was performed according to the method of Agatston. FINDINGS: The score and distribution of calcium in the coronary arteries is as follows: LM 0 LAD 0 LCx 0 RCA 0 Total 0 The visualized mid/lower ascending thoracic aorta measures 3.5 cm in diameter. The heart is normal in size. No pericardial effusion is present. No gross evidence of mediastinal or hilar lymphadenopathy or masses is identified. The visualized segments of the lungs are normally expanded. The visualized subdiaphragmatic structures appear intact. IMPRESSION: 1. Coronary artery calcium score of 0*. *Coronary artery calcium scoring may be helpful in predicting the risk for future coronary heart disease events. According to the [employer] Clinical Expert Consensus Task Force, such testing provides important prognostic information in patients with more than one coronary heart disease risk factor. The coronary artery calcium score correlates with the annual risk of a non-fatal myocardial infarction or coronary heart disease . Coronary artery score Annual Risk - 0-99 0.4% 100-399 1.3% >400 2.4% These three breakpoints correspond to lower, intermediate and high risk states for future coronary events. Such information should be used, along with appropriate clinical judgment, to make decisions regarding the intensity of risk factor management strategies to treat blood lipids and to modify other non-lipid coronary risk factors. Reference: Ryan P et al. Circulation. 2007; 115:402-426 Electronically signed by: VIANCA JALLOH MD [facility] IO EKG Electrocardiogram- 12 [place] 10-02-2021 IO EKG Electrocardiogr am- 12 Lead See Scanned Document [facility] [employer] chrystal Work Phone: Office Visiton 10-02-2021 Follow-up visit Diagnoses/Problems Atypical chest pain (786.59) (R07.89) Anxiety (300.00) (F41.9) Elevated blood pressure reading (796.2) (R03.0) Patient Discussion/Summary She has her coming to take her to [facility]. She works for [employer] so will go there for an acute evaluation due to insurance. Chief Complaint Pt is here today with the C/O heavy feeling in her right arm and chest area, throat feels as if it is closing BP has been higher than normal. This note was generated by using [employer] software. It may contain errors in wording, punctuate, or spelling. She is here today for evaluation of chest discomfort and some heaviness in the right arm and chest region. She states she also feels like her throat is closing off. She states that in the last week she has been checking her blood pressure and its been higher than desirable. She states today while at the [employer] she started feeling intense symptoms that brings [...] going to the emergency room for an evaluation and I told her they might do a D-dimer and just make sure that nothing unusual is happening. We did discuss how anxiety and a panic attack could [...] to see her in follow-up shortly thereafter. Review of SystemsDenies fatigue. Denies shortness of breath at rest but with activity gets SOB, denies coughing, wheezing C/O chest pain, denies palpitations, leg edema Denies nausea, vomiting, diarrhea, heartburn, abdominal pain, or black or bloody stools Denies significant joint pain . 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) Nausea in adult (787.02) (R11.0) Neck pain (723.1) (M54.2) Numbness and tingling of hand (782.0) (R20.0,R20.2) Past Medical History History of nephrolithiasis (V13.01) (Z87.442) Surgical History History of Appendectomy History of Cholecystectomy History of Hysterectomy History of Neck surgery Social History Daily caffeine consumption, 4-5 servings a day Never smoker No advance directives (V49.89) (Z78.9) No alcohol use No illicit drug use Allergies erythromycin Diarrhea; Recorded By: Milla Ervin; 08/09/2019 12:50:12 PM [facility] Recorded By: Milla Ervin; 08/09/2019 12:50:12 PM Additional reactions - Adal Bao Syndrom tetracycline Recorded By: Milla Ervin; 08/09/2019 12:50:12 PM Additional reactions - nausea/diarrhea Current Meds Medication NameInstruction Ditropan 5 MG TABSTAKE 1 TABLET DAILY. Effexor 75 MG TABS Vitals Vital Signs Recorded: 02Oct2021 03:31PM Heart Rate80 Npqutije212 Osihhdrqo957 Height5 ft 8 in Mctgvn126 lb 9 oz BMI Zlndnlpjjg65.93 kg/m2 BSA Calculated1.91 Tobacco Useb) No O2 Arnisvxbgo08 Physical Exam Patient is alert and oriented 4. Very anxious and tearful Respirations are easy and regular Heart tones are regular rate and rhythm. Abdomen is soft Extremities reveal no edema Neurologically grossly intact Signatures Electronically signed by : Ricardo Frazier DO; Oct 02 2021 4:11PM EST (Author) Normal [employer] Tobacco Screening.on Tobacco use status [facility] b) No [facility] Work Phone: Tobacco Screening.on Tobacco use status [facility] b) No [facility] [facility] Work Phone: Tobacco Screening.on 021 Tobacco Screening. b) No [facility] Work Phone: Office Visit: wellness examo n 11-17-2016 Fall risk assessment No Invalid Interpretation Code [facility] Work Phone: Protein mass conc Done Invalid Interpretation Code [facility] Work Phone: Tobacco smoking status NHIS Never Invalid Interpretation Code [facility] Work Phone: Tobacco smoking status NHIS Never smoker Invalid Interpretation Code [facility] Work Phone: Vital Signs Date Time Vital Sign Value Performing Clinician Facility 06-29-2023 14:46-0400 Body temperature 98.1 [degF] Cricket Caio DPM Work Phone: [facility] 06-29-2023 14:46-0400 Diastolic blood pressure 89 mm[Hg] Cricket Crozet DPM Work Phone: [facility] 06-29-2023 14:46-0400 Heart rate 76 /min Cricket Crozet DPM Work Phone: [facility] 06-29-2023 14:46-0400 Systolic blood pressure 132 mm[Hg] Cricket Caio DPM Work Phone: [facility] 06-02-2023 18:31-0400 Body temperature 98.01 [degF] Rebekah Denis APRN.SUPPLIER SPECIALIST Work Phone: [facility] 06-02-2023 18:31-0400 Body weight 85.7 kg Rebekah Denis APRN.SUPPLIER SPECIALIST Work Phone: [facility] 06-02-2023 18:31-0400 Diastolic blood pressure 84 mm[Hg] Rebekah Denis APRN.SUPPLIER SPECIALIST Work Phone: [facility] 06-02-2023 18:31-0400 Heart rate 67 /min Rebekah Denis APRN.SUPPLIER SPECIALIST Work Phone: [facility] 06-02-2023 18:31-0400 Respiratory rate 18 /min Rebekah Denis APRN.SUPPLIER SPECIALIST Work Phone: [facility] 06-02-2023 18:31-0400 SaO2% (BldA) [Mass fraction] 99 % Rebekah Denis APRN.SUPPLIER SPECIALIST Work Phone: [facility] 06-02-2023 18:31-0400 Systolic blood pressure 138 mm[Hg] Rebekah Denis APRN.SUPPLIER SPECIALIST Work Phone: [facility] 10-02-2021 15:31-0400 Body height 172.72 cm Ricardo Frazier Work Phone: [facility] Work Phone: 10-02-2021 15:31-0400 Body mass index (BMI) [Ratio] 25.93 kg/m2 Ricardo Frazier [email or web address] Phone: [facility] [employer] [facility] Work Phone: 10-02-2021 15:31-0400 Body surface area Derived from formula 1.91 m2 Ricardo Hair [employer] Phone: [facility] Work Phone: 10-02-2021 15:31-0400 Body weight 77.37 kg Ricardo Hair [employer] Phone: [facility] Work Phone: 10-02-2021 15:31-0400 Diastolic blood pressure 100 mm[Hg] Ricardo Hair [employer] Phone: [facility] Work Phone: 10-02-2021 15:31-0400 Heart rate 80 /min Ricardo Frazier [email or web address] Phone: [facility] [employer] [facility] Work Phone: 10-02-2021 15:31-0400 SaO2% (BldA) [Mass fraction] 98 % Ricardo Frazier [email or web address] Phone: [facility] Work Phone: 10-02-2021 15:31-0400 Systolic blood pressure 156 mm[Hg] Ricardo Frazier [email or web address] Phone: [facility] [employer] [facility] Work Phone: 08-08-2020 16:54-0400 Body height 172.72 cm Ricardo Frazier [email or web address] Phone: [facility] Work Phone: 08-08-2020 16:54-0400 Body mass index (BMI) [Ratio] 26.53 kg/m2 Ricardo Frazier Work Phone: [facility] Work Phone: 08-08-2020 16:54-0400 Body surface area Derived from formula 1.93 m2 Ricardo Frazier [email or web address] Phone: [facility] Work Phone: 08-08-2020 16:54-0400 Body temperature 97.3 [degF] Ricardo Frazier Work Phone: [facility] Work Phone: 08-08-2020 16:54-0400 Body weight 79.15 kg Ricardo Frazier [email or web address] Phone: [facility] Work Phone: 08-08-2020 16:54-0400 Diastolic blood pressure 78 mm[Hg] Ricardo Frazier [email or web address] Phone: [facility] Work Phone: 08-08-2020 16:54-0400 Heart rate 87 /min Ricardo Frazier [email or web address] Phone: [facility] Work Phone: 08-08-2020 16:54-0400 SaO2% (BldA) [Mass fraction] 98 % Ricardo Frazier Work Phone: [facility] Work Phone: 08-08-2020 16:54-0400 Systolic blood pressure 128 mm[Hg] Ricardo [employer] Phone: [facility] Work Phone: 07-05-2020 07:40-0400 Body height 172.72 cm Ricardo Frazier [email or web address] Phone: [facility] [employer] [facility] Work Phone: 07-05-2020 07:40-0400 Body mass index (BMI) [Ratio] 26.38 kg/m2 Ricardo Frazier Work Phone: [facility] Work Phone: 07-05-2020 07:40-0400 Body surface area Derived from formula 1.92 m2 Ricardo Frazier Work Phone: [facility] Work Phone: 07-05-2020 07:40-0400 Body temperature 96.9 [degF] Ricardo Frazier Work Phone: [facility] Work Phone: 07-05-2020 07:40-0400 Body weight 78.7 kg Ricardo Frazier Work Phone: [facility] Work Phone: 07-05-2020 07:40-0400 Diastolic blood pressure 68 mm[Hg] Ricardo Frazier Work Phone: [facility] Work Phone: 07-05-2020 07:40-0400 Heart rate 66 /min Ricardo Frazier Work Phone: [facility] Work Phone: 07-05-2020 07:40-0400 SaO2% (BldA) [Mass fraction] 98 % Ricardo Frazier Work Phone: [facility] Work Phone: 07-05-2020 07:40-0400 Systolic blood pressure 118 mm[Hg] Ricardo Frazier Work Phone: [facility] Work Phone: 11-17-2016 08:12-0400 BMI (Body Mass Index) 22.74 kg/m2 [facility] Work Phone: 11-17-2016 08:12-0400 BP Diastolic 74 mm[Hg] [place] [facility] Work Phone: 11-17-2016 08:12-0400 BP Systolic 116 mm[Hg] [place] [facility] Work Phone: 11-17-2016 08:12-0400 Height 175.26 cm [place] [facility] Work Phone: 11-17-2016 08:12-0400 Weight 69.85 kg [place] [facility] Work Phone: Encounters Encounter Date Encounter Type Care Provider Facility Start: 06-29-2023 End: 07-03-20[facility] Start: 06-29-2023 End: 06-29-2023 Office outpatient new 30 minutes Cricket Johnson DPM Work Phone: [facility] Comment on above: Hammertoe of left fo ot (Primary Dx); Onychocryptosis; Toe pain, right Start: 06-15-2023 Chart abstracting Cricket eng DPM Work Phone: [facility] Start: 06-05-2023 Telephone encounter Rebekah Denis APRN.SUPPLIER SPECIALIST Work Phone: [facility] Comment on above: Results; Orders Start: 06-02-2023 End: 06-02-2023 ambulatory RICARDO FRAZIER Facility:[facility] Start: 06-02-2023 End: 06-02-2023 Patient encounter procedure Rebekah Denis APRN.SUPPLIER SPECIALIST Work Phone: [facility] Comment on above: Skin infection (Prim mary ellen Dx) Start: 11-04-[address] RICARDO FRAZIER Faci [id number] Start: 10-02-2021 Office outpatient vi sit 15 minutes Ricardo Frazier Work Phone: [facility] Work Phone: Start: 08-08-2020 Office outpatient vi sit 15 minutes Ricardo Frazier Work Phone: [facility] Work Phone: Start: 07-19-2020 AUDIT Ricardo terrazas Work Phone: [facility] Work Phone: Start: 11-17-2017 Patient encounter Facil [id number]:[id number] Procedures Date Procedure Procedure Detail Performing Clinician Appendectomy Ricardo cabral Work Phone: Cholecystectomy Ricardo Murrieta oyal Work Phone: Hysterectomy Ricardo cabral Work Phone: Procedure on neck Ricardo Frazier Work Phone: Plan of Treatment Date Care Activity Detail Author Start: 05-07-2030 Tetanus vaccination Tetanus: Every 1 0yrs [facility] Start: 05-07-2030 Urine microalbumin profile DTaP,Tdap,Td Vaccine (2 - Td or Tdap) [facility] Start: 10-24-2023 Influenza vaccination Influenz a Vaccine (Season Ended) [facility] Start: 07-15-2023 End: 07-15-2023 Patient encounter procedure 07/15/2023 9:00 AM EDT Procedure visit [facility] [address] [place] [address] Cricket Johnson DPM [address] [place] [address] [facility] Start: 06-29-2023 End: 06-29-2023 Patient encounter procedure 06/29/2023 9:15 AM EDT Office Visit [facility] [address] [place] [id number] Cricket Johnson DPM [address] [place] [address] [facility] Start: 06-02-2023 End: 09-01-2023 Bacteria identified in Wound by Culture [facility] Work Phone: Comment on above: Expected: 06/02/2023 , Expires: 09/01/2023 Start: 06-02-2023 End: 09-01-2023 Herpes simplex virus+Varicella zoster virus DNA [Presence] in Unspecified specimen by PADMAJA with probe detection [facility] Work Phone: Comment on above: Expected: 06/02/2023 , Expires: 09/01/2023 Start: 02-22-2023 Behavioral Health Screening Behavioral Health Screening [facility] Start: 10-23-2022 Covid-19 Vaccine () Covid-19 Vaccine () [facility] Start: 01-21-2022 Administration of he rpes zoster vaccine Zoster Vaccines (2 of 2) [facility] Start: 01-21-2022 Shingrix Vaccine (2 of 2) Shingrix Vaccine (2 of 2) [facility] Start: 2019 Administration of he rpes zoster vaccine Zoster Vaccines (1 of 2) [facility] Start: 2019 Screening for malign ant neoplasm of colon Flexible sigmoidoscopy [facility] Start: 06-08-2018 Diabetes Screening Diabetes Screenin g [facility] Start: 2014 Lipid panel Lipid Screening [facility] Start: 2014 Screening for malign ant neoplasm of colon [facility] Start: 2009 Screening for malign ant neoplasm of breast [facility] Start: 1999 Screening for malign ant neoplasm of cervix [facility] Start: 1990 Screening for malign ant neoplasm of cervix [facility] Start: 1988 Hepatitis B Vaccine (1 of 3 - 19+ 3-dose series) Hepatitis B Vaccine (1 of 3 - 19+ 3-dose series) [facility] Start: 1987 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 Annual PCP Team Chronic Disease Visit [facility] Start: 1987 Hepatitis C screening Hepatitis C Sc janee [facility] Start: 1987 HIV screening HIV Screening [facility] Start: 1987 Spirometry Spirometry [facility] Start: 1984 HIV screening HIV Screening [facility] Start: 1981 Depression screening using PHQ-9 (Patient Health Questionnaire 9) score Depression Screening (PHQ-2/9) [facility] Start: 1975 Pneumococcal Vaccine : Ped or At-Risk (1 of 2 - PCV) Pneumococcal Vaccine: Ped or At-Risk (1 of 2 - PCV) [facility] Start: 1972 History and physical examination, annual for health maintenance Wellness Visit [facility] Start: 1969 Screening for malign ant neoplasm of colon [facility] Work Phone: Immunizations Immunization Date Immunization Notes Care Provider Piyush leyva 01-02-2022 influenza virus vaccine, unspecified formulation Rebekah Denis APRN.[facility] Work Phone: [facility] 01-10-2021 influenza, seasonal, injectable, preservative free Ricardo S Leedey Work Phone: [facility] Work Phone: 12-06-2020 Pfizer-BioNTech COVID-19 Vacc 30 MCG/0.3ML Intramuscular Suspension Ricardo S Leedey Work Phone: [employer] [facility] Work Phone: 11-15-2020 Pfizer-BioNTech COVID-19 Vacc 30 MCG/0.3ML Intramuscular Suspension Ricardo S Leedey Work Phone: [employer] [facility] Work Phone: 05-07-2020 tetanus toxoid, redu domingo diphtheria toxoid, and acellular pertussis vaccine, adsorbed Ricardo S Leedey Work Phone: [employer] [facility] Work Phone: 01-15-2020 influenza, seasonal, injectable, preservative free Ricardo S Leedey Work Phone: [employer] [facility] Work Phone: Payers Date Payer Category Payer Private Health Insurance [id number] 2023 Private Health Insurance [id number] 1970 Unknown [id number] 1970 Unknown [id number] 1970 Unknown [id number] Unknown [id number] Unknown [facility] Unknown [id number] Social History Date Type Detail Facility Start: 06-02-2023 End: 06-29-2023 No alcohol use No alcohol use [facility] [employer] Phone: Start: 04-09-2015 End: 06-15-2023 Tobacco smoking status NHIS Never smoked tobacco [facility] Start: 04-09-2015 End: 06-15-2023 Tobacco use and exposure Smokeless tobacco non-user [facility] Start: 06-02-2023 Alcohol intake 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 . Date of : 1970, 53 y.o.. Gender: female. Subjective: Patient is a pleasant 53-year-old female who presents to clinic complaining of right great toenail pain. Patient states that she has an ingrown toenail and she removed a month ago. States that this discomfort has been ongoing for 6 months. Denies any redness, swelling, drainage or any acute signs of infection. No other pedal complaints at this time. Denies fevers, chills, nausea, vomiting, chest pain, shortness of breath, or any other constitutional symptoms. Past Medical History: Diagnosis Date Anal fissure Anal or rectal pain Asthma Diarrhea Generalized abdominal pain Post-op pain Bradshaw-Bao syndrome (HCC) Past Surgical History: Procedure Laterality Date APPENDECTOMY CHOLECYSTECTOMY LAPAROSCOPIC W/ CHOLANGIOGRAM COLONOSCOPY ESOPHAGOGASTRODUODENOSCOPY POLYPECTOMY TUBAL LIGATION Social History Socioeconomic History Marital status: Tobacco Use Smoking status: Never Smokeless tobacco: Never Substance and Sexual Activity Alcohol use: Not Currently Physical Examination: BP 132/89 (BP Location: Left arm, Patient Position: Sitting, BP Cuff Size: Adult) Pulse 76 Temp 98.1 degrees F (36.7 degrees C) (Temporal) General Appearance: Alert, cooperative, no distress, appears stated age. Podiatric Exam Vascular: DP and PT pulses are palpable 2/4. Capillary refill time is less than 3 secs to distal digits. Skin temperature is warm to warm from proximal tibial tuberosity to distal digit. No appreciable edema to bilateral foot or ankle Neurological: Gross sensation is intact. Protective sensation is intact. Dermatologic: The medial and lateral borders of the right great toenail are incurvated into the nailbed. No surrounding erythema, edema or any acute signs of infection. Interdigital spaces are clean dry and intact. Musculoskeletal: Pain on palpation to the medial and lateral borders of the right great toenail ankle joint range of motion is intact. Muscle strength is 5/5 to dorsiflexors, plantar flexors, inverters and everters. Compartments soft and compressible. No calf pain. Adductovarus rotation of the fourth and fifth toes with overlapping of the third toe onto the fourth toe with weightbearing. Diagnoses: 1. Hammertoe of left foot 2. Onychocryptosis 3. Toe pain, right Imaging: Left foot 3 views weightbearing radiographs were ordered and interpreted as follows: Adductovarus rotation of the fourth and fifth toes No acute fractures or dislocations noted. No gross deformity Assessment/Plan: Patient was seen and evaluated. Discussed all clinical findings. 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 Discussed importance of wearing extrawide supportive shoe gear. Regarding patient's right great toe, a slant back procedure was performed and patient's pain was alleviated. Recommended a phenol matrixectomy procedure to prevent recurrence of ingrown toenails. Discussed risk and benefits of this procedure consisting of infection, numbness, tingling, pain, recurrence, etc. Patient has elected to proceed with the surgery scheduled in 2 weeks. All questions were answered to patient satisfaction. Patient understands to call with any questions or concerns. This note was partially created using voice recognition software and is inherently subject to errors including those of syntax and sound-alike substitutions which may escape proofreading. In such instances, original meaning may be extrapolated by contextual derivation. Cricket Johnson DPM, MS Podiatric Physician & Surgeon AUTHENTICATED BY CRICKET JOHNSON, [place] 07/03/2023 09:02:06 [facility] History of Present illness Narrative 07-03-2023 Cricket Johnson DPM - 07/03/2023 8:56 AM EDT Note Date & Type Note Facility 07-03-2023 History of Presen t illness Narrative Images from the original note were not included. NEW Patient Visit Cricket Johnson DPM Patient Name: Anna Marie Bright. . Date of : 1970, 53 y.o.. Gender: female. Subjective: Patient is a pleasant 53-year-old female who presents to clinic complaining of right great toenail pain. Patient states that she has an ingrown toenail and she removed a month ago. States that this discomfort has been ongoing for 6 months. Denies any redness, swelling, drainage or any acute signs of infection. No other pedal complaints at this time. Denies fevers, chills, nausea, vomiting, chest pain, shortness of breath, or any other constitutional symptoms. Past Medical History: Diagnosis Date Anal fissure Anal or rectal pain Asthma Diarrhea Generalized abdominal pain Post-op pain Bradshaw-Bao syndrome (HCC) Past Surgical History: Procedure Laterality Date APPENDECTOMY CHOLECYSTECTOMY LAPAROSCOPIC W/ CHOLANGIOGRAM COLONOSCOPY ESOPHAGOGASTRODUODENOSCOPY POLYPECTOMY TUBAL LIGATION Social History Socioeconomic History Marital status: Tobacco Use Smoking status: Never Smokeless tobacco: Never Substance and Sexual Activity Alcohol use: Not Currently Physical Examination: BP 132/89 (BP Location: Left arm, Patient Position: Sitting, BP Cuff Size: Adult) Pulse 76 Temp 98.1 F (36.7 C) (Temporal) General Appearance: Alert, cooperative, no distress, appears stated age. Podiatric Exam Vascular: DP and PT pulses are palpable 2/4. Capillary refill time is less than 3 secs to distal digits. Skin temperature is warm to warm from proximal tibial tuberosity to distal digit. No appreciable edema to bilateral foot or ankle Neurological: Gross sensation is intact. Protective sensation is intact. Dermatologic: The medial and lateral borders of the right great toenail are incurvated into the nailbed. No surrounding erythema, edema or any acute signs of infection. Interdigital spaces are clean dry and intact. Musculoskeletal: Pain on palpation to the medial and lateral borders of the right great toenail ankle joint range of motion is intact. Muscle strength is 5/5 to dorsiflexors, plantar flexors, inverters and everters. Compartments soft and compressible. No calf pain. Adductovarus rotation of the fourth and fifth toes with overlapping of the third toe onto the fourth toe with weightbearing. Diagnoses: 1. Hammertoe of left foot 2. Onychocryptosis 3. Toe pain, right Imaging: Left foot 3 views weightbearing radiographs were ordered and interpreted as follows: Adductovarus rotation of the fourth and fifth toes No acute fractures or dislocations noted. No gross deformity Assessment/Plan: Patient was seen and evaluated. Discussed all clinical findings. 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 Discussed importance of wearing extrawide supportive shoe gear. Regarding patient's right great toe, a slant back procedure was performed and patient's pain was alleviated. Recommended a phenol matrixectomy procedure to prevent recurrence of ingrown toenails. Discussed risk and benefits of this procedure consisting of infection, numbness, tingling, pain, recurrence, etc. Patient has elected to proceed with the surgery scheduled in 2 weeks. All questions were answered to patient satisfaction. Patient understands to call with any questions or concerns. This note was partially created using voice recognition software and is inherently subject to errors including those of syntax and sound-alike substitutions which may escape proofreading. In such instances, original meaning may be extrapolated by contextual derivation. Cricket Johnson DPM, MS Podiatric Physician & Surgeon documented in this encounter [facility] Note 06-05-2023 Telephone Encounter - Gia Velázquez MA - 06/05/2023 2:04 PM EDTTelephone Encounter - Rebekah Denis APRN.CNP - 06/05/2023 8:15 AM EDT Note Date & Type Note Facility 06-05-2023 Miscellaneous Notes Formattin g of this note might be different from the original. Patient notified of results, verbalized understanding of instructions given. Gia Velázquez MA Patient and let her know to stop the antibiotic that she is currently taking. We did get the culture back and it is staph. Did call in clindamycin for 5 days patient should start taking this medication. documented in this encounter [facility] Progress note 06-02-2023 Note Date & Type Note Facility 06-02-2023 Note HNO ID: [id number] Author: REBEKAH DENIS APRN.[facility] Service: ? Author Type: Nurse Practitioner Type: Progress Notes Filed: 06/02/2023 19:06 Note Text: Subjective The history is provided by the patient. No foreign languages department chair was used. Review of Systems Constitutional: Negative. Objective Physical Exam Constitutional: Appearance: Normal appearance. Pulmonary: Effort: Pulmonary effort is normal. Musculoskeletal: Hands: Neurological: Mental Status: She is alert. [facility] Progress note 06-02-2023 Note Date & Type Note Facility 06-02-2023 Note HNO ID: [id number] Author: REBEKAH DENIS APRN.SUPPLIER SPECIALIST Service: ? Author Type: Nurse Practitioner Type: Progress Notes Filed: 06/02/2023 19:06 Note Text: Subjective Patient came in with complaints of red bump on the left index finger. Patient says started at 630 this morning seems to be worse at this point. Patient says is only painful to touch. Denies any other symptoms at this time. Patient did say that her grandson also has a couple spots on him so she would like tested to make sure it is nothing serious. The history is provided by the patient. No foreign languages department chair was used. Review of Systems Constitutional: Negative. Skin: Negative. Objective Physical Exam Constitutional: Appearance: Normal appearance. Pulmonary: Effort: Pulmonary effort is normal. Musculoskeletal: Hands: Comments: Small half a pea sized raised erythematous area with very small pinpoint fluctuant area. Neurological: Mental Status: She is alert. PAST MEDICAL HISTORY Diagnosis Date Asthma Bradshaw-Bao syndrome (HCC) PAST SURGICAL HISTORY Procedure Laterality Date APPENDECTOMY COLONOSCOPY W/BIOPSY SINGLE/MULTIPLE 03/08/15 normal, neg for microscopic colitis EGD REMOVAL TUMOR POLYP/OTHER LESION SNARE TECH 04-19-09 ESOPHAGOGASTRODUODENOSCOPY TRANSORAL DIAGNOSTIC 07/18/10 INtraoperative - no ulcers or gastritis, fundic gland polyps ESOPHAGOGASTRODUODENOSCOPY TRANSORAL DIAGNOSTIC 03/08/15 fundic polyp, neg celiac, neg gastriitis LAPS SURG CHOLECYSTECTOMY W/CHOLANGIOGRAPHY 07/18/10 Normal IOC, Edematous cholecystitis Tubaligation ALLERGIES Augmentin [Amoxicillin-Pot Clavulanate], Bactrim [Sulfamethoxazole], Erythromycin, Gabapentin, Latex, Penicillins, and Sulfa (Sulfonamide Antibiotics) MEDICATIONS acetaminophen (TYLENOL) 325 mg tablet Take 2 tablets by mouth every 4 hours as needed (for pain.). acetaminophen (TYLENOL) 325 mg tablet Take 650 mg by mouth every 6 hours as needed. doxycycline monohydrate 100 mg tablet Take 1 tablet by mouth two times a day for 7 days. ondansetron orally disintegrating (ZOFRAN ODT) 4 mg disintegrating tablet Take 1 tablet by mouth every 6 hours as needed for Nausea/Vomiting. (Patient not taking: Reported on 02/06/2019 ) diazepam (VALIUM) 5 mg tablet Take 1 tablet by mouth every 6 hours as needed. (Patient not taking: Reported on 07/24/2017 ) diazepam (DIASTAT) 12.5-15-17.5-20 mg kit 15 mg by RECTAL route as needed. (Patient not taking: Reported on 07/24/2017 ) nitroglycerin (RECTIV) 0.4 % (w/w) oint 1 application by RECTAL route twice daily. (Patient not taking: Reported on 07/24/2017 ) belladonna-opium (B AND O 16-A) 16.2-60 mg suppository 1 Suppository by RECTAL route twice daily as needed (rectal pain). (Patient not taking: Reported on 07/24/2017 ) oxyCODONE (OXYIR) 30 mg immediate release tablet Take by mouth as directed. (Patient not taking: Reported on 07/24/2017 ) ibuprofen (ADVIL) 200 mg tablet Take 1 tablet by mouth every 6 hours as needed (for pain.). (Patient not taking: Reported on 02/06/2019 ) docusate sodium (COLACE) 100 mg capsule Take 1 capsule by mouth twice daily. (Patient not taking: Reported on 07/24/2017 ) ibuprofen (MOTRIN) 200 mg tablet Take 400 mg by mouth twice daily as needed. DOXYLAMINE SUCCINATE (SLEEP AID ORAL) Take by mouth. (Patient not taking: Reported on 06/02/2023) Diltiazem 2 % cream DILTIAZIM 2 % CREAM - APPLY PEA-SIZED AMOUNT TO ANUS, TWICE A DAY (Patient not taking: Reported on 07/24/2017 ) pantoprazole DR (PROTONIX) 20 mg tablet Take 20 mg by mouth once daily. FAMILY HISTORY Problem Relation Age of Onset Cancer Father Mult myeloma Prostate Cancer Father Heart Paternal Grandmother Stroke Brother Stroke Maternal Grandmother Stroke Maternal Grandfather Social History Tobacco Use Smoking status: Never Smokeless tobacco: Never Substance Use Topics Alcohol use: No Alcohol/week: 3.9 standard drinks of alcohol Types: 3 Mixed Drinks per week Drug use: No ASSESSMENT/PLAN: 1. Skin infection - ICD9: 686.9, ICD10: L08.9 - ABSCESS AND WOUND CULTURE WITH GRAM STAIN - HSV1,2/VZV NAAT LESION - DOXYCYCLINE MONOHYDRATE 100 MG TABLET Wound was cleansed twice with alcohol. Once wound was dry 18-gauge needle was used to spring wound to collect drainage for HSV sample and wound culture. Wound culture did not get a significant amount. But sending to lab anyway. Patient was educated about possibilities of wound. Patient was also educated about proper use of medication and supportive therapies. Patient was okay with this care plan and will follow-up as needed. Rebekah Denis APRN.[facility] History of Present illness Narrative 06-02-2023 Rebekah Denis APRN.[facility] - 06/02/2023 6:57 PM EDTJaRebekah mcrae APRN.KENDALL - 06/02/2023 6:50 PM EDT Note Date & Type Note Facility 06-02-2023 History of Presen t illness Narrative Images from the original note were not included. Subjective The history is provided by the patient. No foreign languages department chair was used. Review of Systems Constitutional: Negative. Objective Physical Exam Constitutional: Appearance: Normal appearance. Pulmonary: Effort: Pulmonary effort is normal. Musculoskeletal: Hands: Neurological: Mental Status: She is alert. Images from the original note were not included. Subjective Patient came in with complaints of red bump on the left index finger. Patient says started at 630 this morning seems to be worse at this point. Patient says is only painful to touch. Denies any other symptoms at this time. Patient did say that her grandson also has a couple spots on him so she would like tested to make sure it is nothing serious. The history is provided by the patient. No foreign languages department chair was used. Review of Systems Constitutional: Negative. Skin: Negative. Objective Physical Exam Constitutional: Appearance: Normal appearance. Pulmonary: Effort: Pulmonary effort is normal. Musculoskeletal: Hands: Comments: Small half a pea sized raised erythematous area with very small pinpoint fluctuant area. Neurological: Mental Status: She is alert. PAST MEDICAL HISTORY Diagnosis Date Asthma Bradshaw-Bao syndrome (HCC) PAST SURGICAL HISTORY Procedure Laterality Date APPENDECTOMY COLONOSCOPY W/BIOPSY SINGLE/MULTIPLE 03/08/15 normal, neg for microscopic colitis EGD REMOVAL TUMOR POLYP/OTHER LESION SNARE TECH 04-19-09 ESOPHAGOGASTRODUODENOSCOPY TRANSORAL DIAGNOSTIC 07/18/10 INtraoperative - no ulcers or gastritis, fundic gland polyps ESOPHAGOGASTRODUODENOSCOPY TRANSORAL DIAGNOSTIC 03/08/15 fundic polyp, neg celiac, neg gastriitis LAPS SURG CHOLECYSTECTOMY W/CHOLANGIOGRAPHY 07/18/10 Normal IOC, Edematous cholecystitis Tubaligation ALLERGIES Augmentin [Amoxicillin-Pot Clavulanate], Bactrim [Sulfamethoxazole], Erythromycin, Gabapentin, Latex, Penicillins, and Sulfa (Sulfonamide Antibiotics) MEDICATIONS acetaminophen (TYLENOL) 325 mg tablet Take 2 tablets by mouth every 4 hours as needed (for pain.). acetaminophen (TYLENOL) 325 mg tablet Take 650 mg by mouth every 6 hours as needed. doxycycline monohydrate 100 mg tablet Take 1 tablet by mouth two times a day for 7 days. ondansetron orally disintegrating (ZOFRAN ODT) 4 mg disintegrating tablet Take 1 tablet by mouth every 6 hours as needed for Nausea/Vomiting. (Patient not taking: Reported on 02/06/2019 ) diazepam (VALIUM) 5 mg tablet Take 1 tablet by mouth every 6 hours as needed. (Patient not taking: Reported on 07/24/2017 ) diazepam (DIASTAT) 12.5-15-17.5-20 mg kit 15 mg by RECTAL route as needed. (Patient not taking: Reported on 07/24/2017 ) nitroglycerin (RECTIV) 0.4 % (w/w) oint 1 application by RECTAL route twice daily. (Patient not taking: Reported on 07/24/2017 ) belladonna-opium (B AND O 16-A) 16.2-60 mg suppository 1 Suppository by RECTAL route twice daily as needed (rectal pain). (Patient not taking: Reported on 07/24/2017 ) oxyCODONE (OXYIR) 30 mg immediate release tablet Take by mouth as directed. (Patient not taking: Reported on 07/24/2017 ) ibuprofen (ADVIL) 200 mg tablet Take 1 tablet by mouth every 6 hours as needed (for pain.). (Patient not taking: Reported on 02/06/2019 ) docusate sodium (COLACE) 100 mg capsule Take 1 capsule by mouth twice daily. (Patient not taking: Reported on 07/24/2017 ) ibuprofen (MOTRIN) 200 mg tablet Take 400 mg by mouth twice daily as needed. DOXYLAMINE SUCCINATE (SLEEP AID ORAL) Take by mouth. (Patient not taking: Reported on 06/02/2023) Diltiazem 2 % cream DILTIAZIM 2 % CREAM - APPLY PEA-SIZED AMOUNT TO ANUS, TWICE A DAY (Patient not taking: Reported on 07/24/2017 ) pantoprazole DR (PROTONIX) 20 mg tablet Take 20 mg by mouth once daily. FAMILY HISTORY Problem Relation Age of Onset Cancer Father Mult myeloma Prostate Cancer Father Heart Paternal Grandmother Stroke Brother Stroke Maternal Grandmother Stroke Maternal Grandfather Social History Tobacco Use Smoking status: Never Smokeless tobacco: Never Substance Use Topics Alcohol use: No Alcohol/week: 3.9 standard drinks of alcohol Types: 3 Mixed Drinks per week Drug use: No ASSESSMENT/PLAN: 1. Skin infection - ICD9: 686.9, ICD10: L08.9 - ABSCESS AND WOUND CULTURE WITH GRAM STAIN - HSV1,2/VZV NAAT LESION - DOXYCYCLINE MONOHYDRATE 100 MG TABLET Wound was cleansed twice with alcohol. Once wound was dry 18-gauge needle was used to spring wound to collect drainage for HSV sample and wound culture. Wound culture did not get a significant amount. But sending to lab anyway. Patient was educated about possibilities of wound. Patient was also educated about proper use of medication and supportive therapies. Patient was okay with this care plan and will follow-up as needed. Rebekah Denis APRN.SUPPLIER SPECIALIST documented in this encounter [facility] History of Past illness Narrative 07-29-2010 Note Date & Type Note Facility 07-29-2010 History of Past i llness Narrative Problem Noted Date Diagnosed Date Resolved Date Cholecystitis chronic 07/29/20102015 Abdominal pain, right upper quadrant 07/19/2010 05/17/2015 documented as of this encounter (statuses as of 06/03/2023) [facility] History of Past illness Narrative 07-29-2010 Note Date & Type Note Facility 07-29-2010 History of Past i llness Narrative Problem Noted Date Diagnosed Date Resolved Date Cholecystitis chronic 07/29/20102015 Abdominal pain, right upper quadrant 07/19/2010 05/17/2015 documented as of this encounter (statuses as of 06/05/2023) [facility] Evaluation note Note Date & Type Note Facility Evaluation note Diagnosis Skin infection- Primary Unspecified local infection of skin and subcutaneous tissue documented in this encounter [facility] Evaluation note Note Date & Type Note Facility Evaluation note Diagnosis Hammertoe of left foot- Primary Onychocryptosis Ingrowing nail Toe pain, right Pain in soft tissues of limb documented in this encounter [facility] Summary Purpose Family History No Family History [...] nausea. This note was generated by using Loomio software. It may contain errors in wording, [...] like to see a specialist at the [facility] and we can help with a [...] normal. This note was generated by using Loomio software. It may contain errors in wording, [...] desirable. She states today while at the [employer] she started feeling intense symptoms that brings [...] ized section and content) DATE CREATED AUTHOR 12/21/2017 [facility] DATE CREATED AUTHOR AUTHOR'S ORGANIZ ATION 11/19/2021 [facility] DATE CREATED AUTHOR AUTHOR'S ORGANIZ ATION 11/26/2021 [facility] DATE CREATED AUTHOR AUTHOR'S ORGANIZ ATION 06/06/2023 [facility] DATE CREATED AUTHOR AUTHOR'S ORGANIZ ATION 07/05/2023 [facility] Source Comments (unrecognize d section and content) In the event this informatio n is protected by the Federal Confidentiality of Alcohol and Drug Abuse Patient Records regulations: The Federal rules restrict any use of the information to criminally investigate or prosecute any alcohol or drug abuse patient.[facility] the event this information is protected by the Federal Confidentiality of Alcohol and Drug Abuse Patient Records regulations: The Federal rules restrict any use of the information to criminally investigate or prosecute any alcohol or drug abuse patient.[facility] Reason for Visit (unrecogniz ed section and content) Reason Comments infection on left index finger X 1 day Reason Comments Results Orders Reason Comments Foot Pain Ingrown Toenail Patient presents for painful toenail right great toe. Patient removed ingrown a month ago. Duration six months. Patient states no signs of infection Care Teams (unrecognized sec tion and content) Embedded Software Architect Relationship Specialty Start Date End Date Ricardo Frazier DO [address] [place] [address] PCP - General Internal Medicine 04/09/15 Embedded Software Architect Relationship Specialty Start Date End Date Ricardo Frazier DO [address] [place] [id number] PCP - General Internal Medicine 04/09/15 Embedded Software Architect Relationship Specialty Start Date End Date Aurelio Reynolds MD [address] [place] [address] PCP - General Family Medicine 06/29/23 FOR RECORDS PERTAINING TO PATIENTS WHO ARE [...] BE BASED ON THE PRIMARY CLINICAL RECORDS. [facility] [employer] [facility]. provides no warranty or guarantee of the accuracy or completeness of information in this document.
== END | disposition home or self-care (01) ==
LOC: LAB 08:21
PROVIDERS: PCP Family Medicine; Referring Provider Nurse Practitioner Gerontology; Visit Provider Nurse Practitioner Gerontology
DX: E78.5 Hyperlipidemia, unspecified (principal)

== ENCOUNTER 2024-08-16 18:30 | Outpatient (RCR) | payer OTHER, SELFPAY ==
--- NOTE | 2024-08-10 16:18 | HP.PTEVAL_ITS ---
Patient's Visit Information Visit Information Visit Information: ANNA MARIE MILLER is a 54 year old F referred to Physical Therapy by Dr. Mark Anthony Jansen DPM with a diagnosis of R foot pain,potential medial dorsal neuralgia. Date of Evaluation: 08/10/24 Physical Therapist: Artem Flowers DPT Visit Plan Frequency: 2x /Week Duration: 4 Weeks Plan: US to dorsum of R great toe and foot, metatarsal mobilizations grade III/IV as tolerated, may use IASTIM to similar region., calf stretching. Subjective Subjective: Pt. is here today for her initial evaluation with diagnosis of R foot pain, potential medial dorsal neuralgia. Pt. had multiple hammer toe procedures and bunionectomies. Pt. reports having increased pain with standing, walking. 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 Pt. reports pain on top of her foot and her toes. Pt. reports constantly stretching and mobilizing her foot, but does not seem to help much. Pt. would like to get her pain reduced to get back to recreational walking, including walking, hiking and at beach. Pt. report trying multiple topicals without much change. She reports most pain is along dorsal aspect of great toe and metatarsal. Pain R dorsum of foot: Pain Intensity (Out of 10): 4 Pain Intensity Range: 3 and 8 Objective Objective: POSTURE: Pt. has normal wt. shift in stance. PALPATION: Pt. has normal healing incisions, no signs of infection. Pt. has marked tenderness along dorsal aspect of great toe. NEURO: slight tingling in her medial aspect of foot, hyper sensitivity noted as well in same region. Normal DTR bilaterally. ROM: Pt. has slight tightness in her calf, some hypomobility in her toes as well, but not severe, greatest at great toe. MMT: Pt. has decent strength in her ankle and foot, less strength in foot intrinsics. GAIT: Pt. ambulates with decrease forefoot rocker moment, with a more flat foot pattern. MIld increase with walking, worse with forcing forefoot rocker moment. Goals Goal 1:: LTG: Pt. to be I with HEP. Goal Time Frame: 4-6 Weeks Goal 2:: LTG: pt. to be able to complete a full work day without increase in symptoms. Goal Time Frame: 4-6 Weeks Goal 3:: LTG: Pt. to have good great toe extension allowing for proper forefoot rocker moment with gait. Goal Time Frame: 4-6 Weeks Goal 4:: LTG: Pt. to report no burning/tinging on the top of her foot. Goal Time Frame: 4-6 Weeks Rehabilitation Potential Physical Therapy Diagnosis: Pt. has signs and symptoms consistent with R foot pain, potential medial dorsal neuralgia. She has marked sensitivity, pain and hypomobility. She would benefit from PT to address the above issues getting back to all activities/ Rehabilitation Potential: Fair Anticipated Interventions Patient/Client Instruction: Educate patient on: Condition, Plan of Care, Risk Factors and Benefits of Fitness Program For the Purpose of:: To foster healthy habits, To improve decision making, To facilitate caregiver knowledge, To improve self management, To prevent re-injury and To improve ability to perform tasks related to life management Therapeutic Exercise to Include: Strength training, Power training, Flexibilty training, Passive ROM and Active ROM For the Purpose of:: To decrease pain, To decrease swelling/inflammation, To increase ROM, To improve nutrient delivery to tissue, To increase oxygenation perfusion, To improve muscle performance and motor function and To improve ability to perform ADL's Manual Therapy Techniques to Include: Mobilization, Passive ROM and Soft tissue mobilization Comment: IASTIM For the Purpose of:: To decrease pain, To decrease swelling/inflammation, To increase ROM, To improve nutrient delivery to tissue, To increase oxygenation perfusion, To decrease soft tissue restriction and To increase flexibility/ROM Ultrasound (thermal/non thermal): Yes For the Purpose of:: To decrease pain, To decrease swelling/inflammation, To increase ROM, To improve nutrient delivery to tissue and To increase oxygenation perfusion Text: Thank you for the opportunity to evaluate your patient. For Medicare and Medicare HMO plans, please review the plan of care and approve it. It will need to be FAXED BACK to us at [phone] for Medicare purposes. For Medicare only, by signing this I certify the plan of care. Please let me know if there are questions or concerns regarding this plan of care. Physician Signature:_ Date:
== END 2024-08-16 19:00 | disposition home or self-care (01) ==
LOC: PT 18:30
PROVIDERS: PCP Family Medicine; Referring Provider Podiatrist; Visit Provider Podiatrist
DX: M79.671 Pain in right foot (principal)
CPT/HCPCS: 97035; 97140; 97161

== ENCOUNTER 2024-11-19 20:40 | Emergency (ER) | payer OTHER, SELFPAY ==
[2024-11-19 20:41] VITALS: BP 141/98; PULSE 78; RESP 14; TEMP 36.7; O2SAT 98; BMI 26.2
--- NOTE | 2024-11-19 20:53 | EKG12_ITS ---
Test Reason : GEN ILL Blood Pressure : */* mmHG Vent. Rate : 69 BPM Atrial Rate : 69 BPM P-R Int : 162 ms QRS Dur : 72 ms QT Int : 382 ms P-R-T Axes : 32 16 33 degrees QTcB Int : 409 ms Normal sinus rhythm Low voltage QRS Borderline ECG Confirmed by ABE MARTINEZ, DENTON ([id number]), editorial director JAYLA BRADLEY ([id number]) on 11/21/2024 8:01:24 AM Referred By: Confirmed By: DENTON FISH MD
--- NOTE | 2024-11-19 20:53 | CT_ITS ---
PROCEDURE: CT BRAIN/HEAD WITHOUT CONTRAST 11/19/2024 REASON FOR EXAM: HEADACHE, TINNITUS, ELEVATED BLOOD PRESSURE TECHNIQUE: Procedure Code: CTBR Modality: CT Procedure: BRAIN/HEAD WITHOUT CONTRAST Coronal and Sagittal reconstruction series were provided. One or more dose reduction techniques were used (e.g., Automated exposure control, adjustment of the mA and/or kV according to patient size, use of iterative reconstruction technique. RADIATION DOSE SUMMARY: CTDlvol: 44.99 mGy DLP: 812.98 mGycm COMPARISON: 10/02/2021 FINDINGS: No acute intracranial hemorrhage, extra-axial collection, mass effect or evidence of acute infarct. Ventricles and subarachnoid spaces are normal in size. Orbital contents are unremarkable. Intact skull base and calvarium. Clear paranasal sinuses and mastoid air cells. CT/Brain/Head without Contrast IMPRESSION: No acute intracranial abnormality. Reading Location: [id number]
--- NOTE | 2024-11-19 20:54 | EDS_ITS ---
HPI History of Present Illness Chief Complaint: General Illness Narrative Narrative: 54-year-old female presents with elevated blood pressure that she has had all day. While she might have history of hypertension and is supposed to be taking losartan 100 mg, she does not regularly take it. She states that today she started having a headache and fullness mainly in her left ear. She has ringing in her left ear on occasion as well. She states it feels "full". She has a headache, and she noticed that her blood pressure was elevated at 170 systolic. She denies any chest pain, no true shortness of breath, no nausea or vomiting. No exacerbating or alleviating factors. She states that after she had a COVID shot, she had elevated blood pressure, and was put on losartan by Dr. Javier. She states her blood pressure usually runs in the 140s. No swelling of legs. [facility] Medical History Back pain Difficulty swallowing Asthma History of pain when walking History of echocardiogram History of stress test History of irregular heartbeat Cardiology follow-up encounter Left ankle sprain Strain of left knee Strain of left hip Lumbar strain Contact with and (suspected) exposure to other viral communicable diseases Acute sinusitis Headache Essential hypertension Nephrolithiasis Acute maxillary sinusitis, unspecified Wears contact lenses Arthritis Migraine headache Non-smoker Shortness of breath on exertion Leg cramps Acute cervical myofascial strain Vertigo Irritant dermatitis Nausea ASCUS of cervix with negative high risk HPV Stress incontinence Stomach ulcer Home Medications Medication Instructions Recorded Last Taken Type duloxetine 60 mg capsule,delayed 60 mg PO DAILY Unknown History release tizanidine 4 mg tablet 2 - 4 mg PO TID PRN PRN musc le 11/19/24 Unknown History spasticity Allergy/AdvReac Type Severity Reaction Status Date / Time amoxicillin (Amoxicillin) Allergy Mild Rash Verified 11/19/24 20:42 clonidine Allergy Nausea/Vom/ Verified 11/19/24 20:42 Diarrhea erythromycin base Allergy Rash Verified 11/19/24 20:42 (Erythromycin Base) Latex, Natural Rubber Allergy Rash Verified 11/19/24 20:42 Opioids - Morphine Analogues Allergy Nausea/Vom/ Verified 11/19/24 20:42 (narcotics) Diarrhea Sulfa (Sulfonamide Allergy Unknown Verified 11/19/24 20:42 Antibiotics) sulfamethoxazole (From Allergy Other Verified 11/19/24 20:42 Bactrim) trimethoprim (From Bactrim) Allergy Other Verified 11/19/24 20:42 gabapentin AdvReac Intermediate Rash Verified 11/19/24 20:42 doxycycline AdvReac Nausea Verified 11/19/24 20:42 hydromorphone (From Dilaudid) AdvReac Vomiting Verified 11/19/24 20:42 tetracycline AdvReac Nausea/Vom/ Verified 11/19/24 20:42 Diarrhea Family History Father Cancer Brother CVA (cerebral vascular accident) Mental and behavioral problem Mother Colon cancer Surgical History Hx of foot surgery Status post bilateral salpingectomy History of total vaginal hysterectomy (TVH) Hx of spinal surgery Anal fissure History of cholecystectomy History of appendectomy Social History number of children: 3 current occupational status: employed current occupation: [employer] Smoking Status: Never smoker alcohol intake: never substance use type: does not use caffeine: Yes Type: coffee Number of servings: 4 seatbelt use: always do you feel safe at home: Yes 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 history: [employer]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 No chest pain, no fevers or chills, no cough, no leg swelling. EXAM Physical Exam Narrative Exam Narrative: Afebrile. Vital signs noted. Nontoxic-appearing. Cardiovascular examination reveals a regular rate and rhythm. Lungs are clear to auscultation bilaterally. Abdomen is soft and nontender without guarding or rebound. Positive bowel sounds. Neurological examination nonfocal, nonlateralizing. No pitting edema bilateral lower extremities. Neurological examination nonfocal, nonlateralizing. Bilateral TMs without erythema or signs of infection. No mastoid tenderness or erythema. Const Vital Signs: 11/19/24 20:41 11/19/24 20:49 Temperature 98.1 F Temperature Source Oral Pulse Rate 78 Respiratory Rate 14 Respiratory Effort Normal Non-Labored Blood Pressure 141/98 H Blood Pressure Mean 112 Pulse Ox 98 Oxygen Delivery Method Room Air MDM MDM MDM Narrative Medical decision making narrative: Differential diagnosis includes but not limited to uncontrolled hypertension versus intracranial hemorrhage versus hypertensive urgency. I will obtain a CT of the brain to rule out intracranial hemorrhage from hypertension as she usually does not take her medications. Her initial blood pressure in triage was in the 140s. She was placed on a monitoring coordinator, and her blood pressure is fluctuating and was as high as 162 on the second read. EKG was obtained to help rule out ACS as well but she is not having chest pain. I do not feel she needs laboratory work. Additionally, I do not feel that she has an otitis media that requires antibiotics. EKG obtained and interpreted by myself independently as normal sinus rhythm at 69 bpm without ectopy or acute ST changes. No STEMI. I reviewed the radiology report of the CT of the brain and there is no acute process, no intracranial hemorrhage. Repeat evaluation shows her resting comfortably and her systolic blood pressure is 135 on the monitor. I feel she can be discharged safely home with follow-up. Return instructions to the emergency department were reviewed. She was told to keep a log of her blood pressures and that she should probably start taking her losartan as previously directed. Disposition is discharged home in stable condition. History & Record Review Discussion w/independent historian: Patient Additional record(s) reviewed:: Prior ED visit (Seen 3 years ago for accelerated hypertension.) Radiography Diagnostic Testing: Clinical Impression(s) from Imaging Studies Brain CT 11/19/24 20:53 IMPRESSION: No acute intracranial abnormality. Reading Location: [facility] Discharge Plan Triage Chief Complaint: General Illness Other Complaint: Hypertension ED Provider: Eran Sidhu Dx/Rx/DC Orders Clinical Impression: Elevated blood pressure reading with diagnosis of hypertension, Essential hypertension, Sensation of fullness in left ear Instructions: ED High Blood Pressure Hypertension, ED Pain, Acute, Uncertain Cause Prescriptions: No Action tizanidine 4 mg tablet 2 - 4 mg PO TID PRN PRN (Reason: muscle spasticity) duloxetine 60 mg capsule,delayed release(DR/EC) 60 mg PO DAILY Primary Care Provider: Kelvin Gerard Referrals: Kelvin Gerard MD [Primary Care Provider, Family Practice] - 3-5 Days Activity Restrictions/Additional Instructions: Take your losartan as previously directed. You should keep a log of your blood pressures for your primary care provider and follow-up in the next 3 to 5 days. You may need to take your medication daily versus a smaller dose if your blood pressure is too low. Return with continued elevated blood pressure, new or worsening symptoms. Print Language: Finnish Disposition Disposition: Home, Self Care
[2024-11-19 21:24] VITALS: BP 135/92; PULSE 68; RESP 17; TEMP 36.7; O2SAT 99
== END 2024-11-19 21:27 | disposition home or self-care (01) ==
PROVIDERS: Emergency Provider Emergency Medicine; PCP Family Medicine; Visit Provider Emergency Medicine
DX: I10 Essential (primary) hypertension (principal); H93.8X2 Other specified disorders of left ear; Z91.148 Patient's other noncompliance with medication regimen for other reason
CPT/HCPCS: 70450; 93005; 99282